=== PATIENT | female | born 1985 | race Caucasian/White ===

== ENCOUNTER 2018-12-05 19:11 | Emergency (ER) | payer MEDICARE, MEDICAID, SELFPAY ==
[2018-12-05 19:19] VITALS: BP 157/113; PULSE 110; RESP 16; TEMP 37; O2SAT 98
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
[2018-12-05] MEDS: Normal Saline 1,000 ML 1000 ML IV (20:50)
[2018-12-05] MEDS: diphenhydrAMINE 50 MG/ML VIAL IVP (20:51)
[2018-12-05] MEDS: Ketorolac 30 MG/ML VIAL IVP (20:52)
[2018-12-05] MEDS: Prochlorperazine 10 MG/2 ML VIAL IVP (20:52)
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
[2018-12-05 21:08] LABS: Abs Immature Grans 0.02 k/cumm (0.0-0.09); Absolute Basophil Count 0.03 k/cumm (0.0-0.2); Absolute Eosinophil Count 0.36 k/cumm (0.0-0.7); Absolute Lymphocyte Count 3.33 k/cumm (1.2-3.4); Absolute Monocyte Count 0.44 k/cumm (0.11-0.7); Absolute Neutrophil Count 4.11 k/cumm (1.2-6.7); Basophils % 0.4; Eosinophils % 4.3; HCT 44.9 % (36.0-46.0); HGB 15.1 g/dL (12.0-15.5); Immature Grans % 0.2; Lymphocytes % 40.2; Mean Corp. HGB Concentration 33.6 g/dL (32.0-36.0); Mean Corpuscular Hemoglobin 30.8 pg (27.0-33.0); Mean Corpuscular Volume 91.6 fL (80-95); Mean Platelet Volume 8.9 fL (8.0-11.0); Monocytes % 5.3; Neutrophils % 49.6; Platelet Count 366 x1000/uL (130-400); RBC Distribution Width 13.3 % (11.7-14.6); White Blood Cell Count 8.29 k/cumm (4.4-10.8)
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
--- NOTE | 2018-12-05 22:06 | NUR.NOTE ---
Nursing Note: faxed and noted referal to neurology 12/05/18
== END 2018-12-05 22:15 | disposition home or self-care (01) ==
PROVIDERS: Emergency Provider Nurse Practitioner Family; PCP Nurse Practitioner Family
DX: F07.81 Postconcussional syndrome (principal)
CPT/HCPCS: 80053; 96361; 96374; 96375; 99284; 70450; 83735; 85025; J0780; J1200; J1885

== ENCOUNTER → 2018-12-16 08:53 | Outpatient (BNVA) | payer MEDICARE, MEDICAID, SELFPAY | PROVIDERS: PCP Nurse Practitioner Family; Referring Provider Nurse Practitioner Family; Visit Provider Nurse Practitioner Adult Health | DX: S06.0X9A Concussion with loss of consciousness of unspecified duration, initial encounter (principal); S01.91XA Laceration without foreign body of unspecified part of head, initial encounter | CPT/HCPCS: 99204 ==

== ENCOUNTER 2019-05-07 16:39 | Outpatient (REF) | payer MEDICARE, MEDICAID, SELFPAY | END 2019-05-07 16:59 | LOC: NCHCN 16:39 | PROVIDERS: PCP Nurse Practitioner Family; Visit Provider Nurse Practitioner Family | DX: R30.0 Dysuria (principal); R73.03 Prediabetes | CPT/HCPCS: 87086 ==

== ENCOUNTER 2020-01-29 19:25 | Outpatient (REF) | payer MEDICARE, MEDICAID, SELFPAY ==
[2020-02-01 17:52] LABS: COVID-19 RT-PCR UVMMC Result Negative (Negative)
== END 2020-01-29 19:45 ==
LOC: NCHCN 19:25
PROVIDERS: PCP Nurse Practitioner Family; Visit Provider Nurse Practitioner Family
DX: Z20.828 Contact with and (suspected) exposure to other viral communicable diseases (principal)
CPT/HCPCS: U0003

== ENCOUNTER 2020-07-29 09:18 | Emergency (ER) | payer MEDICARE, MEDICAID, SELFPAY ==
[2020-07-29] VITALS (25 sets, daily range): BP systolic 90–135; BP diastolic 46–88; PULSE 74–120; RESP 1–25; TEMP 36.5; O2SAT 93–100
--- NOTE | 2020-07-29 09:15 | RT.EKG_ITS ---
APPROVED REPORT Exam: Resting ECG Reason for Exam: chest pains Patient Location: E HR:111 bpm ECG Measurements Heart Rate 111 AXIS AL 98 P 50 QRSd 74 QRS 61 QT 337 T 18 QTc 459 Conclusion Sinus tachycardia...rate> 99
--- NOTE | 2020-07-29 09:48 | W.ED.GENAD ---
Discharge Plan Disposition Patient Disposition: HOME Condition: Stable Discharge Details Clinical Impression: COPD (chronic obstructive pulmonary disease) Primary Care Provider: Maggie Stevens ED Provider: Rosi Smith Home Meds and New Rx's Prescriptions: New ipratropium-albuterol 0.5 mg-3 mg(2.5 mg base)/3 mL solution for nebulization 3 ml inhalation QID PRNQty: 90 RF: 0 prednisone 20 mg tablet 20 mg PO DAILY Qty: 10 RF: 0 doxycycline monohydrate 100 mg capsule 100 mg PO BID Qty: 14 RF: 0 (DME) nebulizer and compressor Device See Rx Instructions .ROUTE .MEDSUPPLY Qty: 1 RF: 0 No Action albuterol sulfate 2.5 mg /3 mL (0.083 %) Solution For Nebulization 2.5 mg INHALATION Q4H PRNRF: 0 fluticasone propionate 50 mcg/actuation [place],Suspension 1 spray INTRANASAL DAILY RF: 0 loratadine 10 mg Tablet 10 mg PO DAILY RF: 0 Nexplanon 68 mg Implant 1 implant SUBDERMAL ONCE RF: 0 buprenorphine-naloxone [Suboxone] 8-2 mg Film See Rx Instructions .ROUTE .COMPLEX RF: 0 Combivent Respimat 20-100 mcg/actuation Mist 1 puff INHALATION QID RF: 0 atorvastatin 40 mg Tablet 40 mg DAILY RF: 0 valproic acid 250 mg Capsule 500 mg PO BID RF: 0 albuterol sulfate [Ventolin HFA] 90 mcg/actuation Hfa Aerosol Inhaler 2 puff INHALATION Q6H PRN PRNRF: 0 dexmethylphenidate [Focalin XR] 40 mg Capsule,Er Biphasic 50-50 40 mg PO DAILY RF: 0 prochlorperazine maleate [Compazine] 10 mg tablet 10 mg PO Q6H PRN (Reason: nausea and vomiting) Qty: 14 RF: 0 diphenhydramine HCl [Benadryl Allergy] 25 mg tablet 50 mg PO Q6H PRN (Reason: nausea and vomiting) Qty: 20 RF: 0 Discharge Instructions Instructions: COPD (Chronic Obstructive Pulmonary Disease) (ED) Additional Instructions: recheck with pcp in 24-48 hours antibiotic until completed nebulizer every 4 hours return earlier with new or worsening complaints, including chest pain, worsening shortness of breath Discharge Data Discharge Date/Time-TO BE ENTERED AT DEPARTURE: 07/29/20 13:16 Medical Decision Making <EDILBERTO Padilla - Last Filed: 07/29/20 14:22> D-dimer negative, troponin negative with over 24 hours of symptoms, heart score of 3, Patient is feeling marked improvement after 2 DuoNeb treatments and IV steroids, she is sent home on prednisone and doxycycline for history of COPD She is instructed to be reevaluated in 24 to 48 hours with her primary care physician and given low threshold to return should she have new or worsening complaints Her chest pain is quite reproducible on exam and completely alleviated with Tylenol administration, her Covid swab is negative She is ambulatory with normal pulse oximetry, not he is satting below 93%, feeling marked symptomatic improvement and safe for discharge home at this time chest x-ray does not show acute pathology per radiology interpretation in my review Differential Diagnosis Differential Diagnosis: Pulmonary embolism, angina, COPD, pneumonia Medical Records Medical records reviewed: Yes I reviewed the patient's medical records. Lab Data Lab results reviewed: Yes I reviewed the patient's lab results. ECG Data Prior ECG tracings: available for review <Demarcus Nazario MD - Last Filed: 08/06/20 03:35> Patient seen, examined, and discussed with EDILBERTO Smith. EKG reviewed and interpreted by me: Please see report, nondiagnostic. Given respiratory symptoms and tachycardia on arrival, consider pulmonary embolism. Patient low risk by Wells criteria. Plan for ddimer. Nursing had difficulty obtaining blood from IV. I used ultrasound guidance to perform peripheral venous blood draw from left arm without complication. I agree with treatment plan as discussed/documented. HPI <EDILBERTO Padilla - Last Filed: 07/29/20 14:22> General Mode of arrival: ambulatory. Date/Time Provider Initiated Documentation: 07/29/20 09:33. Limitations to Documentation: no limitations. Information obtained by: patient. HPI Narrative: This 35-year-old female with history of hepatitis C, hypercholesterolemia IV drug abuse (10+ years earlier) presents with report of chest pressure and yesterday morning when she awoke. She denies prior history of similar symptoms in the past. She states she has had some intermittent nausea without diaphoresis. She denies any vomiting. She states she feels breath. She denies any new medications. She is been using her inhalers as instructed. She denies any calf pain or swelling. She does take Nexplanon for contraception. She denies any calf pain or swelling. She denies history of coagulopathy. She denies any fever or chills. She denies any exertional symptoms. Related Data Home Medications Medication Instructions Recorded Confirmed albuterol sulfate [Ventolin HFA] 2 puff INHALATION Q6H PRN PRN 12/05/18 07/29/20 atorvastatin 40 mg DAILY 12/05/18 07/29/20 dexmethylphenidate [Focalin XR] 40 mg PO DAILY 12/05/18 07/29/20 diphenhydramine HCl [Benadryl 50 mg PO Q6H PRN #20 tab 12/05/18 07/29/20 Allergy] prochlorperazine maleate 10 mg PO Q6H PRN #14 tab 12/05/18 07/29/20 [Compazine] valproic acid 500 mg PO BID 12/05/18 07/29/20 albuterol sulfate 2.5 mg INHALATION Q4H PRN 08/03/19 07/29/20 buprenorphine-naloxone [Suboxone] See Rx Instructions .ROUTE .COMPLEX 08/03/19 07/29/20 etonogestrel [Nexplanon] 1 implant SUBDERMAL ONCE 08/03/19 07/29/20 fluticasone propionate 1 spray INTRANASAL DAILY 08/03/19 07/29/20 ipratropium-albuterol [Combivent 1 puff INHALATION QID 08/03/19 07/29/20 Respimat] loratadine 10 mg PO DAILY 08/03/19 07/29/20 doxycycline monohydrate 100 mg PO BID #14 cap 07/29/20 ipratropium-albuterol 3 ml INHALATION QID PRN #90 ml 07/29/20 nebulizer and compressor #1 ea 07/29/20 prednisone 20 mg PO DAILY #10 tab 07/29/20 Previous Rx's Medication Instructions Recorded diphenhydramine HCl [Benadryl 50 mg PO Q6H PRN #20 tab 12/05/18 Allergy] prochlorperazine maleate 10 mg PO Q6H PRN #14 tab 12/05/18 [Compazine] doxycycline monohydrate 100 mg PO BID #14 cap 07/29/20 ipratropium-albuterol 3 ml INHALATION QID PRN #90 ml 07/29/20 nebulizer and compressor #1 ea 07/29/20 prednisone 20 mg PO DAILY #10 tab 07/29/20 Allergies Allergy/AdvReac Type Severity Reaction Status Date / Time lamotrigine [From Lamictal] Allergy Severe Unverified 07/29/20 09:33 adhesives Allergy Mild Uncoded 07/29/20 09:33 General Stated Complaint: Chest Pain PAYTON: 2 Review of Systems <EDILBERTO Padilla - Last Filed: 07/29/20 14:22> Narrative: Review of systems obtained x7 aside from where indicated in HPI PFSH <EDILBERTO Padilla - Last Filed: 07/29/20 14:22> Medical History (Updated 07/29/20 @ 12:42 by EDILBERTO Padilla) ADD (attention deficit disorder) ADHD Aneurysmal bone cyst Back pain Bipolar 1 disorder Bipolar 2 disorder Cervical dysplasia Chronic pain Chronic pain of left lower extremity COPD (chronic obstructive pulmonary disease) Depression with anxiety Dyspepsia Dysuria Eczema Glaucoma H/O traumatic brain injury Headache Hepatitis C History of narcotic addiction Hx of opioid abuse Hyperkalemia Hyperlipidemia Insomnia Lower extremity surgery planned Marijuana use Nocturnal leg cramps Obesity Peripheral neuropathy Prediabetes PTSD (post-traumatic stress disorder) Seizure after head injury Sinusitis Smoker Suppurative hidradenitis Surgical History (Updated 08/24/19 @ 09:22 by Joan Okeefe RN) H/O removal of cyst S/P right knee arthroscopy Tubal was removed. Family History (Updated 07/29/20 @ 12:38 by EDILBERTO Padilla) Other COPD (chronic obstructive pulmonary disease) Social History (Updated 08/24/19 @ 09:23 by Joan Okeefe RN) Smoking/Tobacco Use Status: Current every day Tobacco Type: cigarettes Smoking risk assessment performed?: Yes Alcohol Intake: never Drug use: Occasionally Substance use type: former substance user and marijuana Household members: family Housing: homeless Number of Children: 3 current occupation: disabled What is your relationship status?: Panel score (0-1 are the most socially isolated patients): 0 What type of physical activity do you participate in: none Seatbelt use: sometimes Do you feel safe at home: Yes Do you feel safe in your relationship?: Yes Exam <EDILBERTO Padilla - Last Filed: 07/29/20 14:22> Const General: cooperative and no acute distress Chest Chest: normal inspection of the chest Resp Effort & Inspection: normal respiratory effort Auscultation: diminished lung sounds and wheezes Cardio Rate: tachycardic Rhythm: regular rhythm Skin General skin exam: no rashes or lesions noted Neuro General: patient alert and patient oriented x3 Extrem Other: No calf swelling or tenderness appreciated bilaterally. Course <EDILBERTO Padilla - Last Filed: 07/29/20 14:22> Vital Signs Vital signs: Vital Signs Temperature 36.5 C 07/29/20 09:24 Pulse 93 H 07/29/20 09:24 Respiratory Rate 15 07/29/20 09:24 Blood Pressure 118/86 07/29/20 09:24 Pulse Oximetry 99 07/29/20 09:24 Temperature 36.5 C 07/29/20 09:24 Temperature Source Skin 07/29/20 09:24 Pulse 91 H 07/29/20 09:30 Pulse 105 H 07/29/20 09:31 Respiratory Rate 18 07/29/20 09:31 Respiratory Effort Non-Labored 07/29/20 09:31 Respiratory Depth Normal 07/29/20 09:31 Respiratory Pattern Normal 07/29/20 09:31 Blood Pressure 118/86 07/29/20 09:30 Blood Pressure Mean 90 07/29/20 09:30 Blood Pressure Position Supine 07/29/20 09:24 Pulse Oximetry 99 07/29/20 09:31 Oxygen Delivery Method Room Air 07/29/20 09:24 Oxygen Flow Rate 0 07/29/20 09:24 Pain Level 7 07/29/20 09:31
[2020-07-29 09:51] LABS: Source Nasal/Nares
[2020-07-29] MEDS: methylPREDNISolone SUCC 125 MG VIAL IVP (10:28)
[2020-07-29] MEDS: ACETAMINOPHEN 1,000 MG/100 ML BTL 400 MG IVPB (10:28)
[2020-07-29] MEDS: Albuterol/Ipratropium 3 ML UPD VIAL UPD ×2 (10:28→11:44)
[2020-07-29 10:44] LABS: COVID-19 PCR Negative (Negative)
[2020-07-29 11:05] LABS: Abs Immature Grans 0.03 10^3/uL (0.0-0.06); Absolute Basophil Count 0.03 10^3/uL (0.0-0.2); Absolute Eosinophil Count 0.16 10^3/uL (0.0-0.7); Absolute Lymphocyte Count 3.83 10^3/uL (1.2-3.4); Absolute Monocyte Count 0.74 10^3/uL (0.1-0.8); Absolute Neutrophil Count 4.72 10^3/uL (1.2-6.7); Basophils % 0.3; Eosinophils % 1.7; HCT 43.6 % (36.0-46.0); HGB 14.6 g/dL (11.2-15.7); Immature Grans % 0.3; Lymphocytes % 40.3; MCHC 33.5 % (32.0-36.0); MCV 89.7 fL (80-95); MPV 9.2 fL (8.0-11.0); Monocytes % 7.8; Neutrophils % 49.6; Nucleated RBC 0 %; Platelet Count 418 10^3/uL (130-400); RBC 4.86 10^6/uL (3.93-5.22); RDW 12.3 % (11.7-14.6); RDW-SD 40.9 fL; WBC 9.51 10^3/uL (4.4-10.8)
[2020-07-29 11:20] LABS: HCG Qual (Serum) Negative
[2020-07-29 11:21] LABS: ALT 15 U/L (14-59); AST 9 U/L (15-37); Albumin 3.5 g/dL (3.4-5.0); Alkaline Phosphatase 92 U/L (46-116); Anion Gap 9.1 mmol/L (3-11); BUN 7 mg/dL (7-18); Bilirubin, Total 0.4 mg/dL (0.2-1.0); CO2 26.9 mmol/L (21.0-32.0); CREATININE 0.8 mg/dL (0.55-1.02); Calcium 9.1 mg/dL (8.5-10.1); Chloride 102 mmol/L (98-107); Glucose 97 mg/dL (74-106); Magnesium 2.1 mg/dL (1.8-2.4); Potassium 4.3 mmol/L (3.5-5.1); Sodium 138 mmol/L (136-145); Total Protein 7.6 g/dL (6.4-8.2); Troponin I < 0.05 ng/mL (<0.06)
--- NOTE | 2020-07-29 11:45 | DI.RAD_ITS ---
Exam(s) XR CHEST 2V PA LATERAL EXAM: XR CHEST 2V PA LATERAL CLINICAL HISTORY: shortness of breath TECHNIQUE: 2D digital imaging was performed. COMPARISON: No exams were available for comparison FINDINGS: MEDIASTINUM: Normal. HEART: Normal. PULMONARY VASCULATURE: Normal. LUNGS: Clear. PLEURAL SPACE: No pleural effusion or pneumothorax. BONE:Within normal limits for the patient's age. OTHER FINDINGS:Normal. IMPRESSION: No acute pulmonary findings. DATA REPOSITORY: RADIATION DOSE DELIVERED:
[2020-07-29 11:47] LABS: D-Dimer 264 ng/mlFEU (<500)
[2020-07-29 12:34] LABS: NT-proBNP 68 pg/mL (<300)
== END 2020-07-29 13:16 | disposition home or self-care (01) ==
PROVIDERS: Emergency Provider Physician Assistant; PCP Nurse Practitioner Family
DX: J44.9 Chronic obstructive pulmonary disease, unspecified (principal); F17.210 Nicotine dependence, cigarettes, uncomplicated
CPT/HCPCS: 36415; 80053; 87635; 93005; 94640; 96365; 96375; 99284; 71046; 83735; 83880; 84484; 84703; 85025; 85379; 93010; 99283; J0131; J2930; J7620

== ENCOUNTER 2020-09-10 15:11 | Outpatient (REF) | payer MEDICARE, MEDICAID, SELFPAY ==
[2020-09-28 11:45] LABS: Fungus Smear No Fungi Seen
== END 2020-09-10 15:12 | disposition home or self-care (01) ==
LOC: LBN 15:11
PROVIDERS: PCP Nurse Practitioner Family; Visit Provider Physician Assistant Medical
DX: L98.8 Other specified disorders of the skin and subcutaneous tissue (principal)
CPT/HCPCS: 87101; 87206; 87070; 87205

== ENCOUNTER 2020-11-04 07:41 | Outpatient (RCR) | payer MEDICARE, MEDICAID, SELFPAY ==
--- NOTE | 2020-11-04 10:15 | HOLTER_ITS ---
APPROVED REPORT Conclusion This is a 48-hour Holter monitor ordered for tachycardia Rhythm throughout was sinus. Average heart rate was 98. Minimum was 72, maximum 163. Heart rates d uring sleep were approximately 80. Heart rates while awake average 110-120 There were 2 isolated PVCs There were very rare atrial premature beats There was no atrial fibrillation. There was no high-grade AV block. There were no pauses greater th an 3 seconds.
== END 2020-11-10 23:59 | disposition home or self-care (01) ==
LOC: RT 07:41
PROVIDERS: PCP Nurse Practitioner Family; Visit Provider Nurse Practitioner Family
DX: R00.0 Tachycardia, unspecified (principal); I49.3 Ventricular premature depolarization
CPT/HCPCS: 93227; 93225; 93226

== ENCOUNTER 2020-11-07 03:30 | Outpatient (CLI) | payer MEDICARE, MEDICAID, SELFPAY ==
[2020-11-07 11:49] LABS: Abs Immature Grans 0.05 10^3/uL (0.0-0.06); Absolute Basophil Count 0.04 10^3/uL (0.0-0.2); Absolute Eosinophil Count 0.18 10^3/uL (0.0-0.7); Absolute Lymphocyte Count 3.43 10^3/uL (1.2-3.4); Absolute Monocyte Count 0.61 10^3/uL (0.1-0.8); Absolute Neutrophil Count 5.68 10^3/uL (1.2-6.7); Basophils % 0.4; Eosinophils % 1.8; HGB 13.3 g/dL (11.2-15.7); Immature Grans % 0.5; Lymphocytes % 34.3; MCH 29.4 pg (27.0-33.0); MCHC 32.4 % (32.0-36.0); MCV 90.7 fL (80-95); MPV 9.3 fL (8.0-11.0); Monocytes % 6.1; Neutrophils % 56.9; Nucleated RBC 0 %; Platelet Count 338 10^3/uL (130-400); RBC 4.52 10^6/uL (3.93-5.22); RDW 13.3 % (11.7-14.6); RDW-SD 44.2 fL; WBC 9.99 10^3/uL (4.4-10.8)
[2020-11-07 11:56] LABS: GGT 24 U/L (5-55)
[2020-11-07 12:01] LABS: VALPROIC ACID 55.3 ug/mL
[2020-11-07 12:09] LABS: ALT 18 U/L (14-59); AST 10 U/L (15-37); Albumin 3.4 g/dL (3.4-5.0); Alkaline Phosphatase 101 U/L (46-116); Anion Gap 6.1 mmol/L (3-11); BUN 9 mg/dL (7-18); Bilirubin, Total 0.3 mg/dL (0.2-1.0); CO2 27.9 mmol/L (21.0-32.0); CREATININE 0.8 mg/dL (0.55-1.02); Calcium 8.4 mg/dL (8.5-10.1); Chloride 104 mmol/L (98-107); Glucose 93 mg/dL (74-106); Sodium 138 mmol/L (136-145); TSH (W/Ref FT4) 1.46 uIU/mL (0.36-3.74); Total Protein 7.1 g/dL (6.4-8.2)
== END 2020-11-07 03:31 | disposition home or self-care (01) ==
LOC: LBO 03:30
PROVIDERS: PCP Nurse Practitioner Family; Visit Provider Nurse Practitioner Psychiatric/Mental Health
DX: R73.03 Prediabetes (principal); F11.20 Opioid dependence, uncomplicated; R53.83 Other fatigue; B19.20 Unspecified viral hepatitis C without hepatic coma; G47.62 Sleep related leg cramps; Z51.81 Encounter for therapeutic drug level monitoring; F51.05 Insomnia due to other mental disorder; F31.81 Bipolar II disorder
CPT/HCPCS: 36415; 80053; 93227; 80164; 82977; 84443; 85025; 93226

== ENCOUNTER 2020-12-09 08:45 | Outpatient (CLI) | payer MEDICARE, MEDICAID, SELFPAY | END 2020-12-09 08:46 | disposition home or self-care (01) | LOC: DI.CARD 08:46 | PROVIDERS: PCP Nurse Practitioner Family; Visit Provider Internal Medicine Cardiovascular Disease | DX: R00.0 Tachycardia, unspecified (principal) | CPT/HCPCS: 93010 ==

== ENCOUNTER 2021-11-06 15:28 | Outpatient (REF) | payer MEDICARE, MEDICAID, SELFPAY ==
[2021-11-06 18:06] LABS: Abs Immature Grans 0.09 10^3/uL (0.0-0.06); Absolute Basophil Count 0.06 10^3/uL (0.0-0.2); Absolute Eosinophil Count 0.17 10^3/uL (0.0-0.7); Absolute Lymphocyte Count 2.71 10^3/uL (1.2-3.4); Absolute Monocyte Count 0.68 10^3/uL (0.1-0.8); Basophils % 0.5; Eosinophils % 1.5; HCT 39.1 % (36.0-46.0); HGB 12.5 g/dL (11.2-15.7); Immature Grans % 0.8; Lymphocytes % 24.3; MCV 91 fL (80-95); MPV 9.1 fL (8.0-11.0); Monocytes % 6.1; Neutrophils % 66.8; Platelet Count 621 10^3/uL (130-400); RBC 4.31 10^6/uL (3.93-5.22); RDW 13.8 % (11.7-14.6); RDW-SD 46.8 fL; WBC 11.15 10^3/uL (4.4-10.8)
[2021-11-06 18:16] LABS: Absolute Neutrophil Count 7.45 10^3/uL (1.2-6.7)
== END 2021-11-06 15:29 | disposition home or self-care (01) ==
LOC: LBN 15:28
PROVIDERS: PCP Nurse Practitioner Family; Visit Provider Student in an Organized Health Care Education/Training Program
DX: M00.871 Arthritis due to other bacteria, right ankle and foot (principal); Z79.2 Long term (current) use of antibiotics; Z45.2 Encounter for adjustment and management of vascular access device
CPT/HCPCS: 85025; 86140

== ENCOUNTER 2021-11-13 20:28 | Outpatient (REF) | payer MEDICARE, MEDICAID, SELFPAY ==
[2021-11-13 20:18] LABS: Abs Immature Grans 0.01 10^3/uL (0.0-0.06); Absolute Basophil Count 0.05 10^3/uL (0.0-0.2); Absolute Eosinophil Count 0.13 10^3/uL (0.0-0.7); Absolute Lymphocyte Count 2.46 10^3/uL (1.2-3.4); Basophils % 0.6; Eosinophils % 1.5; HCT 34.7 % (36.0-46.0); HGB 10.6 g/dL (11.2-15.7); Immature Grans % 0.1; Lymphocytes % 28.8; MCH 28.5 pg (27.0-33.0); MCHC 30.5 % (32.0-36.0); MCV 93 fL (80-95); MPV 9.6 fL (8.0-11.0); Monocytes % 8.2; Neutrophils % 60.8; Platelet Count 498 10^3/uL (130-400); RBC 3.72 10^6/uL (3.93-5.22); RDW 13.6 % (11.7-14.6); RDW-SD 46.8 fL; WBC 8.55 10^3/uL (4.4-10.8)
[2021-11-13 20:24] LABS: C-Reactive Protein 9.18 mg/dL (0.0-0.3)
== END 2021-11-13 20:29 | disposition home or self-care (01) ==
LOC: NCHCN 20:28
PROVIDERS: PCP Nurse Practitioner Family; Visit Provider Student in an Organized Health Care Education/Training Program
DX: M00.871 Arthritis due to other bacteria, right ankle and foot (principal)
CPT/HCPCS: 85025; 86140

== ENCOUNTER 2023-02-26 15:35 | Outpatient (REF) | payer MEDICARE, MEDICAID, SELFPAY ==
--- NOTE | 2023-02-26 14:15 | PAPFT_PTH ---
PATIENT: Inna Doherty LOC: [facility] U#:[id number] AGE/SX: 37/F ROOM: RE02/26/[address]: Anita Awad : 1985 BED: DIS: 02/26/2023 SPEC #: [id number] RECD: 02/27/23 12:57 STATUS: BRIDGET LLOYD #: [id number] MERA: 02/26/23 14:[address]: Anita Awad DEPT: [facility] Cytology RECD BY: Rosi Nicholson ENTERED: 02/27/23 12:57 SP TYPE: PAPFT ZACHARY DR: Maggie Stevens Tissues: 1 - CX/ENDOCX FOR PAP SMEARS Procedures: PAP THIN PREP/UVM Screening HPV DNA PROBE Comments: [id number]
== END 2023-02-26 15:36 | disposition home or self-care (01) ==
LOC: NCHCN 15:35
PROVIDERS: PCP Nurse Practitioner Family; Visit Provider Nurse Practitioner Family
DX: Z11.51 Encounter for screening for human papillomavirus (HPV); Z01.411 Encounter for gynecological examination (general) (routine) with abnormal findings
CPT/HCPCS: 88142; 87624

== ENCOUNTER → 2023-03-04 02:10 | Outpatient (CLI) | payer MEDICARE, MEDICAID, SELFPAY ==
--- NOTE | 2023-03-04 | DI.US_ITS ---
Exam(s) US ABDOMEN LIMITED EXAM: US ABDOMEN LIMITED CLINICAL HISTORY: VIRAL HEP C,b19.20 TECHNIQUE: Ultrasound abdomen performed using standard protocol. COMPARISON: No exams were available for comparison FINDINGS: PANCREAS: Normal where visualized. LIVER: Normal. Hepatopetal flow in the Portal Vein. The liver measures in 17.6 cm length. GALLBLADDER: No evidence of cholelithiasis. No evidence of wall thickening. No pericholecystic fluid identified. BILIARY SYSTEM: Common bile duct measures < 7 mm. No intrahepatic biliary ductal dilation. LOPEZ'S SIGN: Negative. RIGHT KIDNEY: Kidney is normal in size. No evidence of renal calculi. No evidence of hydronephrosis. No renal mass or cyst identified. ASCITES: None seen. IMPRESSION: Normal sonographic appearance of the upper abdomen. DATA REPOSITORY:
== END ==
PROVIDERS: PCP Nurse Practitioner Family; Visit Provider Nurse Practitioner Family
DX: B19.20 Unspecified viral hepatitis C without hepatic coma (principal)
CPT/HCPCS: 76705

== ENCOUNTER 2023-10-31 21:29 | Outpatient (REF) | payer MEDICARE, MEDICAID, SELFPAY ==
[2023-10-31 22:07] LABS: HCT 45.1 % (36.0-46.0); HGB 15.1 g/dL (11.2-15.7); MCH 30.8 pg (27.0-33.0); MCHC 33.5 % (32.0-36.0); MCV 92 fL (80-95); MPV 9.5 fL (8.0-11.0); Platelet Count 460 10^3/uL (130-400); RBC 4.91 10^6/uL (3.93-5.22); RDW 12.8 % (11.7-14.6); RDW-SD 43.1 fL
[2023-10-31 23:09] LABS: ALT 20 U/L (14-59); AST 14 U/L (15-37); Albumin 3.6 g/dL (3.4-5.0); Alkaline Phosphatase 85 U/L (46-116); Anion Gap 10.6 mmol/L (3-11); BUN 20 mg/dL (7-18); Bilirubin, Total 0.14 mg/dL (0.2-1.0); CO2 24.4 mmol/L (21.0-32.0); CREATININE 0.8 mg/dL (0.55-1.02); Calcium 9.1 mg/dL (8.5-10.1); Chloride 105 mmol/L (98-107); Estimated GFR 97.26 (mL/min/1.73m2); Glucose 77 mg/dL (74-106); Potassium 3.9 mmol/L (3.5-5.1); Sodium 140 mmol/L (136-145); TSH (W/Ref FT4) 3.35 uIU/mL (0.36-3.74); Total Protein 7.4 g/dL (6.4-8.2)
[2023-10-31 23:20] LABS: Calculated LDL 306 mg/dL (<100); Cholesterol 397 mg/dL (<200); HDL Cholesterol 40 mg/dL (40-60); Triglyceride 255 mg/dL (<150)
== END 2023-10-31 21:30 | disposition home or self-care (01) ==
LOC: NCHCN 21:29
PROVIDERS: PCP Nurse Practitioner Family; Visit Provider Family Medicine
DX: Z86.19 Personal history of other infectious and parasitic diseases (principal); R53.83 Other fatigue
CPT/HCPCS: 80053; 80061; 85027; 84443

== ENCOUNTER 2024-06-05 19:29 | Inpatient (IN) | payer MEDICARE, MEDICAID, SELFPAY ==
[2024-06-05] VITALS (58 sets, daily range): BP systolic 113; BP diastolic 54; PULSE 95–127; RESP 15–37; TEMP 38.3; O2SAT 89–100
--- NOTE | 2024-06-05 19:45 | RT.EKG_ITS ---
APPROVED REPORT Exam: Resting ECG Reason for Exam: tachycardia Patient Location: E HR:121 bpm ECG Measurements Heart Rate 121 AXIS [place] 126 P 53 QRSd 83 QRS 74 QT 313 T -20 QTc 444 Conclusion Sinus tachycardia...rate> 99 Sinus tachycardia. When compared to prior 07/29/20 HR has increased. WD
[2024-06-05 20:30] LABS: Absolute Basophil Count 0.03 10^3/uL (0.0-0.2); Absolute Lymphocyte Count 1.33 10^3/uL (1.2-3.4); Absolute Monocyte Count 0.74 10^3/uL (0.1-0.8); Absolute Neutrophil Count 12.23 10^3/uL (1.2-6.7); BE (Venous) 7 mmol/L (-2-3); Basophils % 0.2 %; HCO3 (Venous) 31 mmol/L (23-28); HCT 36.9 % (36.0-46.0); HGB 12.1 g/dL (11.2-15.7); Immature Grans % 0.7 %; Lactate 0.9 mmol/L (<or=2.0); Lymphocytes % 9.2 %; MCHC 32.8 % (32.0-36.0); MCV 95 fL (80-95); MPV 8.8 fL (8.0-11.0); Monocytes % 5.1 %; Neutrophils % 84.8 %; O2 Sat (Venous) 79 %; Platelet Count 299 10^3/uL (130-400); RDW 14.3 % (11.7-14.6); RDW-SD 49.5 fL; TCO2 (Venous) 28 mmol/L (24-29); WBC 14.42 10^3/uL (4.4-10.8); pCO2 (Venous) 44 mmHg (41-51); pH (Venous) 7.46 (7.31-7.41); pO2 (Venous) 39 mmHg
--- NOTE | 2024-06-05 20:30 | DI.CT_ITS ---
Exam(s) CT RENAL COLIC WO EXAM: CT RENAL COLIC WO CLINICAL HISTORY: L flank pain. TECHNIQUE: Imaging Protocol: Axial computed tomography images with coronal and sagittal reformatted images were created and reviewed. COMPARISON: CR XR CHEST 2V PA LATERAL from 07/29/2020 US US ABDOMEN LIMITED from 03/04/2023 FINDINGS: ABDOMEN: Lung Bases: Normal where visualized. Liver: There is diffuse decreased attenuation of the liver consistent with fatty infiltration. No me asurable mass. Gallbladder and biliary tract: No radiodense calculus or biliary ductal dilation. Pancreas: Normal density, no abnormal calcifications or inflammatory process. Spleen: Normal. Kidneys: Normal size, contour and axis.No radiodense stones or obstructive uropathy. No masses seen. Adrenal glands: No mass is seen. Lymph nodes: Within normal limits. Abdominal Aorta: Abdominal portion non-dilated. Atherosclerotic calcification is present. PELVIS: Bladder:Symmetric distention, no gross wall thickening. Bowel: No obstruction or bowel wall thickening. There is no evidence of appendicitis. There is a mod erate amount of stool throughout the colon. Peritoneal cavity: No ascites, collection or mesenteric inflammatory response. No free air. Reproductive organs: Unremarkable as visualized. Bones: There is a compression fracture of L1 of indeterminate age. It was not present on the chest x -ray from 07/29/2020. There is loss of 20-30 percent of the height of the vertebral body anteriorly. There is retropulsion into the spinal canal and exaggeration of the kyphosis at this level. There i s mild narrowing of the central spinal canal. Soft Tissues: There is a small fat containing umbilical hernia. IMPRESSION: 1. No evidence of nephrolithiasis or hydronephrosis. 2. L1 compression fracture deformity with loss of 20-30 percent of the height of the vertebral body a nteriorly. There is retropulsion into the posterior spinal canal resulting in very mild narrowing of the central spinal canal. This is age indeterminate. It appears subacute or chronic. The most rec ent evaluation of this area was on 07/29/2020 which was unremarkable. MRI may be useful for further c haracterization. 3. The preliminary [facility] report was reviewed. RADIATION DOSE DELIVERED: 1,142.84mGy.cm Total DLP DATA REPOSITORY: All CT scans at this facility are submitted to the National Radiology Data Registry (NRDR) Dose Index Registry (DIR) with the [employer] ([employer]). RADIATION OPTIMIZATION: All CT scans at this facility use at least one of these dose optimization te chniques: automated exposure control; mA and/or kV adjustment per patient size (includes targeted exa ms where dose is matched to clinical indication); or iterative reconstruction.
--- NOTE | 2024-06-05 20:42 | ED.GENADUL_ITS ---
Discharge Plan Disposition Patient Disposition: Admit to [facility] Condition: Stable Discharge Details Clinical Impression: Sepsis, Cellulitis of right arm Primary Care Provider: Anita Awad ED Provider: Wily Calderon Home Meds and New Rx's Prescriptions: No Action fluticasone propionate 50 mcg/actuation [place],Suspension 1 spray INTRANASAL DAILY loratadine 10 mg Tablet 10 mg PO DAILY buprenorphine-naloxone [Suboxone] 8-2 mg Film See Rx Instructions .ROUTE .COMPLEX Rx Instructions: 20 mg duloxetine [Cymbalta] 20 mg capsule,delayed release(DR/EC) 20 mg PO BID Nexplanon 68 mg implant 1 implant subdermal ONCE Rx Instructions: as a single dose sumatriptan succinate 100 mg tablet 100 mg PO DAILY docusate sodium 100 mg tablet 100 mg PO DAILY buprenorphine-naloxone [Suboxone] 12-3 mg film 1 film sublingual DAILY montelukast 10 mg tablet 10 mg PO DAILY methylphenidate HCl 10 mg tablet 10 mg PO DAILY baclofen 20 mg tablet 20 mg PO DAILY tiotropium bromide [Spiriva with HandiHaler] 18 mcg capsule, w/inhalation device 1 cap inhalation DAILY Rx Instructions: puncture 1 cap using device; one dose = 2 inhalations budesonide-formoterol 80-4.5 mcg/actuation HFA aerosol inhaler 2 puff inhalation BID PRN divalproex 500 mg tablet extended release 24 hr 500 mg PO DAILY Rx Instructions: take by mouth tid 500 mg QAm. 250mg midday, 500mg pm gabapentin 600 mg tablet 600 mg PO BID meloxicam 15 mg tablet 15 mg PO DAILY ondansetron 8 mg tablet,disintegrating 8 mg PO Q12H PRN topiramate 100 mg tablet 100 mg PO BID amlodipine 10 mg tablet 10 mg PO DAILY atorvastatin 40 mg Tablet 40 mg PO DAILY albuterol sulfate [Ventolin HFA] 90 mcg/actuation Hfa Aerosol Inhaler 2 puff INHALATION Q6H PRN PRN ipratropium-albuterol 0.5 mg-3 mg(2.5 mg base)/3 mL solution for nebulization 3 ml inhalation QID PRNQty: 90 0RF (DME) nebulizer and compressor Device See Rx Instructions .ROUTE .MEDSUPPLY Qty: 1 0RF Rx Instructions: As directed multivitamin Tablet 1 tab PO DAILY trazodone 50 mg tablet 50 mg PO .Q 24 hrs tizanidine 4 mg tablet 4 mg PO DAILY trazodone 150 mg tablet 150 mg PO .bedtime Vraylar 3 mg capsule 3 mg PO DAILY mirtazapine 30 mg tablet 30 mg PO .bedtime prazosin 2 mg capsule 2 mg PO .bedtime nicotine (polacrilex) 4 mg gum 4 mg buccal Q1H gabapentin 300 mg capsule 300 mg PO TID Patient Comments: TAKE ONE CAPSULE BY MOUTH THREE TIMES A DAY One-A-Day Women's Complete 18 mg iron- 400 mcg tablet 1 tab PO DAILY levetiracetam 500 mg tablet 500 mg PO BID omeprazole 20 mg capsule,delayed release(DR/EC) 20 mg PO DAILY prazosin 1 mg capsule 1 mg PO .bedtime buprenorphine-naloxone 8-2 mg tablet, sublingual 2 tab SUBLINGUAL DAILY Patient Comments: PLACE ONE TABLET UNDER THE TONGUE EVERY DAY HPI General Date/Time Provider Initiated Documentation: 06/05/24 19:34 . HPI Narrative: 39 year-old female presents to ED today by POV/ambulating with a chief complaint of fevers, back pain, L flank pain, swelling to arms and legs, R arm redness with raisued umbilicated papules to forearm, cough with chronic COPD, having taken 6 diuretic pills yesterday with no urine since then, with onset the past few days. Patient has history of IVDU in remote past. Quality described as feels awful, no radiation to chest pain, abdominal pain, nausea/vomiting, neck stiffness/reduced ROM, severe headache, confusion, visual changes, motor deficits. Severity is described as severe. Palliating factors include nothing specific. Provoking factors include nothing specific. Events leading up to the incident/Associated Symptoms: Patient reports cutting her medial calf shaving a few days ago but the area is not overly red. Patient not anticoagulated. Related Data Home Medications ?Medication ?Instructions ?Recorded ?Confirmed albuterol sulfate 90 mcg/actuation 2 puff inhalation Q6H PRN PRN 12/05/18 06/05/24 aerosol inhaler (Ventolin HFA) atorvastatin 40 mg tablet 40 mg PO DAILY 12/05/18 06/05/24 buprenorphine 8 mg-naloxone 2 mg See Rx Instructions .Route .COMPLEX 08/03/19 06/05/24 sublingual film (Suboxone) fluticasone propionate 50 1 spray intranasal DAILY 08/03/19 06/05/24 mcg/actuation nasal spray,suspension loratadine 10 mg tablet 10 mg PO DAILY 08/03/19 06/05/24 ipratropium 0.5 mg-albuterol 3 mg 3 ml inhalation QID PRN #90 mL 07/29/20 06/05/24 (2.5 mg base)/3 mL nebulization soln nebulizer and compressor #1 ea 07/29/20 buprenorphine 12 mg-naloxone 3 mg 1 film sublingual DAILY 10/10/20 06/05/24 sublingual film (Suboxone) docusate sodium 100 mg tablet 100 mg PO DAILY 10/10/20 06/05/24 duloxetine 20 mg capsule,delayed 20 mg PO BID 10/10/20 06/05/24 release (Cymbalta) etonogestrel 68 mg subdermal 1 implant subdermal ONCE 10/10/20 06/05/24 implant (Nexplanon) sumatriptan succinate 100 mg tablet 100 mg PO DAILY 10/10/20 06/05/24 montelukast 10 mg tablet 10 mg PO DAILY 10/11/20 06/05/24 amlodipine 10 mg tablet 10 mg PO DAILY 04/18/23 06/05/24 baclofen 20 mg tablet 20 mg PO DAILY 04/18/23 06/05/24 budesonide-formoterol HFA 80 2 puff inhalation BID PRN 04/18/23 06/05/24 mcg-4.5 mcg/actuation aerosol inhaler divalproex 500 mg tablet,extended 500 mg PO DAILY 04/18/23 06/05/24 release 24 hr gabapentin 600 mg tablet 600 mg PO BID 04/18/23 06/05/24 meloxicam 15 mg tablet 15 mg PO DAILY 04/18/23 06/05/24 methylphenidate HCl 10 mg tablet 10 mg PO DAILY 04/18/23 06/05/24 ondansetron 8 mg disintegrating 8 mg PO Q12H PRN 04/18/23 06/05/24 tablet tiotropium bromide 18 mcg capsule 1 cap inhalation DAILY 04/18/23 06/05/24 with inhalation device (Spiriva with HandiHaler) topiramate 100 mg tablet 100 mg PO BID 04/18/23 06/05/24 buprenorphine 8 mg-naloxone 2 mg 2 tab sublingual DAILY 06/05/24 06/05/24 sublingual tablet cariprazine 3 mg capsule (Vraylar) 3 mg PO DAILY 06/05/24 06/05/24 gabapentin 300 mg capsule 300 mg PO TID 06/05/24 06/05/24 levetiracetam 500 mg tablet 500 mg PO BID 06/05/24 06/05/24 mirtazapine 30 mg tablet 30 mg PO .bedtime 06/05/24 06/05/24 multivitamin 1 tab PO DAILY 06/05/24 06/05/24 [id number] 1 tab PO DAILY 06/05/24 06/05/24 fumarate 18 mg-folic acid 400 mcg tablet (One-A-Day Women's Complete) nicotine (polacrilex) 4 mg gum 4 mg buccal Q1H 06/05/24 06/05/24 omeprazole 20 mg capsule,delayed 20 mg PO DAILY 06/05/24 06/05/24 release prazosin 1 mg capsule 1 mg PO .bedtime 06/05/24 06/05/24 prazosin 2 mg capsule 2 mg PO .bedtime 06/05/24 06/05/24 tizanidine 4 mg tablet 4 mg PO DAILY 06/05/24 06/05/24 trazodone 150 mg tablet 150 mg PO .bedtime 06/05/24 06/05/24 trazodone 50 mg tablet 50 mg PO .Q 24 hrs 06/05/24 06/05/24 Previous Rx's ?Medication ?Instructions ?Recorded ipratropium 0.5 mg-albuterol 3 mg 3 ml inhalation QID PRN #90 mL 07/29/20 (2.5 mg base)/3 mL nebulization soln nebulizer and compressor #1 ea 07/29/20 Allergies Allergy/AdvReac Type Severity Reaction Status Date / Time lamotrigine (From Lamictal) Allergy Severe Hives Unverified 06/05/24 19:48 erythromycin base Allergy Unknown Other (See Verified 06/05/24 19:48 Comment) transparent dressing Allergy Unknown Other (See Verified 06/05/24 19:48 Comment) adhesives Allergy Mild Hives Uncoded 06/05/24 19:48 General Stated Complaint: [facility] PAYTON: 3 Review of Systems All systems reviewed & are unremarkable except as noted in HPI and below Exam Narrative Exam Narrative: GENERAL APPEARANCE: Morbid obesity, toxic, awake and alert, atraumatic, moderate acute distress. SKIN: Hot, pink, diaphoretic, umbilicated macular lesions to right forearm with diffuse erythema to right forearm, minor cut from shaving left medial calf without surrounding erythema, no fluctuant swellings in the skin diffusely HEAD: Normocephalic, atraumatic, normal hair distribution for gender/age. EYES: Normal conjunctiva, no exudates on lids/lashes. ENT: Nares patent, no circumoral cyanosis, no facial swelling NECK: Supple, trachea midline, painless cervical ROM. LUNGS/CHEST: Lungs CTA bilaterally-no rhonchi/rales/wheezes diffusely but difficult exam due to body habitus, non-labored respirations, normal A/P diameter, symmetrical expansion, no chest wall deformity HEART (CV/PV): Regular rate-tachycardic and rhythm without murmur, 3+ peripheral edema bilateral lower extremities without pallor or rubor, no JVD. ABDOMEN: Soft, non-distended, no guarding no tenderness. MSK: Normal ROM, no swelling/deformity to bilateral UEs or LEs, moving all extremities without weakness, no cyanosis, spine midline without tenderness, normal curvature. NEURO: Mental Status AAOx4 - alert to person, place, time, events No facial droop, no forehead involvement. Motor: No focal weakness - strength 5/5 in bilateral UEs and LEs, proximal and distal, symmetric. Sensory: sensation intact to light touch globally. Gait normal: patient ambulated without ataxia into ED room. PSYCH: euthymic, cooperative, pleasant, appropriate speech Course Vital Signs Vital signs: Vital Signs Temperature 38.3 C H 06/05/24 19:40 Pulse 127 H 06/05/24 19:40 Respiratory Rate 20 06/05/24 19:40 Blood Pressure 113/54 L 06/05/24 19:40 Pulse Oximetry 100 06/05/24 19:40 Temperature 38.3 C H 06/05/24 19:47 Temperature Source Oral 06/05/24 19:47 Pulse 127 H 06/05/24 19:47 Respiratory Rate 20 06/05/24 19:47 Blood Pressure 113/54 L 06/05/24 19:47 Blood Pressure Position Sitting 06/05/24 19:40 Pulse Oximetry 100 06/05/24 19:47 Oxygen Delivery Method Room Air 06/05/24 19:47 Pain Level 7 06/05/24 19:40 Lab/Test Results Lab/Test Results: 06/05/24 20:22 Blood Blood Culture - Pending 06/05/24 20:34 Blood Blood Culture - Pending Laboratory Tests Range/Units 06/05/24 20:22 WBC (4.4-10.8) 10^3/uL 14.42 H RBC (3.93-5.22) 10^6/uL 3.90 L Hgb (11.2-15.7) g/dL 12.1 Hct (36.0-46.0) % 36.9 MCV (80-95) fL 95 MCH (27.0-33.0) pg 31.0 MCHC (32.0-36.0) % 32.8 RDW (11.7-14.6) % 14.3 Plt Count (130-400) 10^3/uL 299 MPV (8.0-11.0) fL 8.8 Immature Gran % % 0.7 Neutrophils % % 84.8 Lymphocytes % % 9.2 Monocytes % % 5.1 Eosinophils % % 0.0 Basophils % % 0.2 Nucleated RBC % (0.0-0.3) % 0.0 Absolute Neutrophils (1.2-6.7) 10^3/uL 12.23 H Absolute Lymphocytes (1.2-3.4) 10^3/uL 1.33 Absolute Monocytes (0.1-0.8) 10^3/uL 0.74 Absolute Eosinophils (0.0-0.7) 10^3/uL 0.00 Absolute Basophils (0.0-0.2) 10^3/uL 0.03 VBG pH (7.31-7.41) 7.46 H VBG pCO2 (41-51) mmHg 44 VBG pO2 mmHg 39 VBG HCO3 (23-28) mmol/L 31 H VBG Total CO2 (24-29) mmol/L 28 VBG O2 Saturation % 79 VBG Base Excess (-2-3) mmol/L 7 H VBG Lactate (<or=2.0) mmol/L 0.9 Medical Decision Making This dictation utilizes [id number] dictation software and may contain unedited grammatical errors. 39 year-old female presents to ED today by POV/ambulating with a chief complaint of fevers, back pain, L flank pain, swelling to arms and legs, R arm redness with raisued umbilicated papules to forearm, cough with chronic COPD, having taken 6 diuretic pills yesterday with no urine since then, with onset the past few days. Patient has history of IVDU in remote past. Quality described as feels awful, no radiation to chest pain, abdominal pain, nausea/vomiting, neck stiffness/reduced ROM, severe headache, confusion, visual changes, motor deficits. Severity is described as severe. Palliating factors include nothing specific. Provoking factors include nothing specific. Events leading up to the incident/Associated Symptoms: Patient reports cutting her medial calf shaving a few days ago but the area is not overly red. Patients' medical history: Seizure, opioid dependence, asthma, hepatitis C, cannabis abuse, edema, neuropathy, cervical dysplasia, bipolar 1, migraine, tachycardia, history of TBI, obesity, COPD. Family and social history: Denies active illicit drug use, quit years ago, no EtOH use. Pertinent exam findings / vital signs include swelling and redness to entire right arm, bilateral 3+ pitting edema in both legs without rubor or pallor, no abdominal tenderness, no nuchal rigidity, neuro intact, tachycardic, no rhonchi or rales or wheezes to lungs, no labored respirations. Differential / pathologies of concern include sepsis, cellulitis, acute renal failure, infected kidney stone, UTI, PID, endocarditis, spinal epidural abscess less likely. Diagnostic studies of: -CBC, CMP, lactate, procalcitonin, blood cultures, magnesium, COVID/flu/RSV PCR, CRP/ESR, urinalysis, UDS, troponin, VBG, lipase, EKG, XR chest, CT renal colic without contrast. -CBC shows leukocytosis 14.42, 0.7% immature gran., no anemia, elev abs. neutrophils 12.23 -CMP shows hypokalemia 2.8, SCr 1.1 - do not suspect ARF, hypocalcemia 8.0 -Lipase negative -CRP 11, ESR 29 -VBG shows metabolic alkalosis- possibly due to her excess diuretic doses -Magnesium 1.2, repleting -UA without infection, cellulitic R arm as likely source -BNP mildly elev -Trop negative -UDS pending at admit -CT renal colic study shows possible chronic L1 compression fracture, no renal stone/hydro -XR chest unremarkable -EKG shows sinus tachycardia at 121 bpm with P waves followed by narrow complex QRS, normal axis, normal intervals, poor R wave progression, no ST changes, questionable submillimeter ST depression in V4 V5 without reciprocal changes Interventions of: -1710mL 30cc/kg sepsis bolus initiated, IV 2gm cefepime & vancomycin initiated for empiric sepsis coverage- possible renal stone as source vs cellulitis. -Consulted with Hospitalist Dr. Cary at 2200- accepts for admission. Cellulitis as likely source of sepsis- consider MRI scheduled for Saturday if patients L flank CVA tenderness is more suspicious for relation to chronic L1 compression fracture seen on CT with improvement of patients symptoms and re- evaluation ED Course/Assessment/Plan: 39-year-old female presents tachycardic, febrile with diffuse lower extremity swelling acute on chronic and erythematous right arm with history of IVDU, patient is septic with likely source as cellulitis, denies active use or current skin lesions from IVDU, there is no evidence of significant abscess to the right arm, she has a leukocytosis with a white count of 14.4 leading towards left shift with 0.7% immature granulocytes, significant elevation of inflammatory markers, lactate is normal at this time but patient did take significant amounts of her diuretics yesterday perhaps has cleared a lactic acidosis or is masked by metabolic alkalosis at this time, she has significant electrolyte abnormalities that require repletion which was started in the emergency department, her UA shows no signs of infection, CT shows no infected kidney stone but it does show significant compression fracture of L1 patient denies trauma. With her history should be considered for possible MRI but with cellulitis as likely source currently I think she can be admitted with workup for back pain to continue after improvement of current source of infection and current symptoms through medical management, her chest x-ray is unremarkable, she has received cefepime and vancomycin. Disposition of acute sepsis secondary to cellulitis with significant chronic comorbidities and lifestyle risk factors of IV drug use, and COPD. Disposition of Sepsis, Cellulitis. Patient verbalized understanding of the plan and return to ED criteria and engaged in shared decision making. Medical Records Medical records reviewed: Yes I reviewed the patient's medical records. Imaging Data Radiologic Study: Attestation: I personally reviewed and interpreted this imaging study as follows: Imaging: X-Ray Radiologist's impression: Exam: XR Chest Exam date and time: 06/05/2024 9:23 PM Age: 39 years old Clinical indication: Cough, copd TECHNIQUE: Imaging protocol: Radiologic exam of the chest. Views: 2 views. COMPARISON: CR XR CHEST 2V PA LATERAL 07/29/2020 12:22 PM FINDINGS: Lungs: Bilateral lower lobe subsegmental atelectatic changes identified. Pleural spaces: Unremarkable. No pleural effusion. No pneumothorax. Heart/Mediastinum: Unremarkable. No cardiomegaly. Bones/joints: Unremarkable. IMPRESSION: Bilateral lower lobe subsegmental atelectatic changes. Dictated and Authenticated by: Joseph Maya MD. Radiologic Study #2: Attestation: I personally reviewed and interpreted this imaging study as follows: Imaging: CT Scan Radiologist's impression: Exam: CT Abdomen And Pelvis Without Contrast Exam date and time: 06/05/2024 9:16 PM Age: 39 years old Clinical indication: Abdominal pain; Flank; Left TECHNIQUE: Imaging protocol: Computed tomography of the abdomen and pelvis without contrast. COMPARISON: US ABDOMEN LIMITED 03/04/2023 8:20 AM FINDINGS: Lungs: Bilateral lower lobe subsegmental atelectatic changes. Liver: Normal. No mass. Gallbladder and biliary ducts: Normal. No calcified stones. No ductal dilation. Pancreas: Normal. No ductal dilation. Spleen: Normal. No splenomegaly. Adrenal glands: Normal. No mass. Kidneys and ureters: No radiopaque renal calculi. No evidence for hydronephrosis. Stomach and bowel: Mild constipation. Appendix: No evidence of appendicitis. Intraperitoneal space: Unremarkable. No free air. No significant fluid collection. Vasculature: Unremarkable. No abdominal aortic aneurysm. Lymph nodes: Nonenlarged inguinal lymph nodes. Urinary bladder: Unremarkable as visualized. Reproductive: Unremarkable as visualized. Bones/joints: Severe compression fracture identified involving the L1 vertebral body of uncertain age but likely subacute or chronic. Retropulsion identified involving the posterior cortex of the vertebral body resulting in mild to moderate spinal stenosis. Soft tissues: Unremarkable. IMPRESSION: 1. Normal unenhanced CT scan of abdomen and pelvis. 2. Severe compression deformity involving the L1 vertebral body as detailed above likely subacute/chronic. Please correlate with physical exam. Dictated and Authenticated by: Joseph Maya MD. Lab Data Lab results reviewed: Yes I reviewed the patient's lab results. Labs: 06/05/24 21:05 Blood Blood Culture - Pending 06/05/24 20:22 Blood Blood Culture - Pending Laboratory Tests Range/Units 06/05/24 06/05/24 06/05/24 20:22 20:33 20:49 WBC (4.4-10.8) 10^3/uL 14.42 H RBC (3.93-5.22) 10^6/uL 3.90 L Hgb (11.2-15.7) g/dL 12.1 Hct (36.0-46.0) % 36.9 MCV (80-95) fL 95 MCH (27.0-33.0) pg 31.0 MCHC (32.0-36.0) % 32.8 RDW (11.7-14.6) % 14.3 Plt Count (130-400) 10^3/uL 299 MPV (8.0-11.0) fL 8.8 Immature Gran % % 0.7 Neutrophils % % 84.8 Lymphocytes % % 9.2 Monocytes % % 5.1 Eosinophils % % 0.0 Basophils % % 0.2 Nucleated RBC % (0.0-0.3) % 0.0 Absolute Neutrophils (1.2-6.7) 10^3/uL 12.23 H Absolute Lymphocytes (1.2-3.4) 10^3/uL 1.33 Absolute Monocytes (0.1-0.8) 10^3/uL 0.74 Absolute Eosinophils (0.0-0.7) 10^3/uL 0.00 Absolute Basophils (0.0-0.2) 10^3/uL 0.03 ESR (0-20) mm/hr 29 H VBG pH (7.31-7.41) 7.46 H VBG pCO2 (41-51) mmHg 44 VBG pO2 mmHg 39 VBG HCO3 (23-28) mmol/L 31 H VBG Total CO2 (24-29) mmol/L 28 VBG O2 Saturation % 79 VBG Base Excess (-2-3) mmol/L 7 H VBG Lactate (<or=2.0) mmol/L 0.9 Cancelled Sodium (136-145) mmol/L 136 Potassium (3.5-5.1) mmol/L 2.8 L* Chloride (98-107) mmol/L 96 L Carbon Dioxide (21.0-32.0) mmol/L 29.4 Anion Gap (3-11) mmol/L 10.6 BUN (7-18) mg/dL 14 Creatinine (0.55-1.02) mg/dL 1.1 H Est GFR (CKD-EPI 2020) (mL/min/1.73m2) 65.96 Glucose (74-106) mg/dL 116 H Calcium (8.5-10.1) mg/dL 8.0 L Magnesium (1.8-2.4) mg/dL 1.2 L Total Bilirubin (0.2-1.0) mg/dL 0.7 AST (15-37) U/L 46 H ALT (14-59) U/L 32 Alkaline Phosphatase (46-116) U/L 72 Troponin I (<or=51) ng/L 19 Cancelled C-Reactive Protein (<or=0.5) mg/dL 11.63 H NT-Pro-B Natriuret Pep (<300) pg/mL 340 H Total Protein (6.4-8.2) g/dL 6.6 Albumin (3.4-5.0) g/dL 3.1 L Lipase (<78) U/L 26 Procalcitonin ng/mL 0.53 Urine Color (Yellow) Urine Clarity (Clear) Urine pH (5-8) Ur Specific [place] (1.005-1.025) Urine Protein (Neg-Trace) mg/dL Urine Ketones (Negative) mg/dL Urine Blood (Negative) Urine Nitrite (Negative) Urine Bilirubin (Negative) Urine Urobilinogen (Up to 0.2) mg/dL Ur Leukocyte Esterase (Negative) Urine Glucose (Negative) mg/dL Range/Units 06/05/24 06/05/24 21:45 22:49 WBC (4.4-10.8) 10^3/uL RBC (3.93-5.22) 10^6/uL Hgb (11.2-15.7) g/dL Hct (36.0-46.0) % MCV (80-95) fL MCH (27.0-33.0) pg MCHC (32.0-36.0) % RDW (11.7-14.6) % Plt Count (130-400) 10^3/uL MPV (8.0-11.0) fL Immature Gran % % Neutrophils % % Lymphocytes % % Monocytes % % Eosinophils % % Basophils % % Nucleated RBC % (0.0-0.3) % Absolute Neutrophils (1.2-6.7) 10^3/uL Absolute Lymphocytes (1.2-3.4) 10^3/uL Absolute Monocytes (0.1-0.8) 10^3/uL Absolute Eosinophils (0.0-0.7) 10^3/uL Absolute Basophils (0.0-0.2) 10^3/uL ESR (0-20) mm/hr VBG pH (7.31-7.41) VBG pCO2 (41-51) mmHg VBG pO2 mmHg VBG HCO3 (23-28) mmol/L VBG Total CO2 (24-29) mmol/L VBG O2 Saturation % VBG Base Excess (-2-3) mmol/L VBG Lactate (<or=2.0) mmol/L Sodium (136-145) mmol/L Potassium (3.5-5.1) mmol/L Chloride (98-107) mmol/L Carbon Dioxide (21.0-32.0) mmol/L Anion Gap (3-11) mmol/L BUN (7-18) mg/dL Creatinine (0.55-1.02) mg/dL Est GFR (CKD-EPI 2020) (mL/min/1.73m2) Glucose (74-106) mg/dL Calcium (8.5-10.1) mg/dL Magnesium (1.8-2.4) mg/dL Total Bilirubin (0.2-1.0) mg/dL AST (15-37) U/L ALT (14-59) U/L Alkaline Phosphatase (46-116) U/L Troponin I (<or=51) ng/L Cancelled C-Reactive Protein (<or=0.5) mg/dL NT-Pro-B Natriuret Pep (<300) pg/mL Total Protein (6.4-8.2) g/dL Albumin (3.4-5.0) g/dL Lipase (<78) U/L Procalcitonin ng/mL Urine Color (Yellow) Yellow Urine Clarity (Clear) Clear Urine pH (5-8) 6.0 Ur Specific [place] (1.005-1.025) 1.015 Urine Protein (Neg-Trace) mg/dL 30 H Urine Ketones (Negative) mg/dL Negative Urine Blood (Negative) Negative Urine Nitrite (Negative) Negative Urine Bilirubin (Negative) Negative Urine Urobilinogen (Up to 0.2) mg/dL 1.0 H Ur Leukocyte Esterase (Negative) Negative Urine Glucose (Negative) mg/dL Negative Quality:SDOH Health Related Social Needs: No Data to Display PFSH All Active Problems (Updated 06/05/24 @ 22:15 by EDILBERTO Caldwell) Cellulitis of right arm (Acute) Sepsis (Acute) Migraine with aura and without status migrainosus, not intractable (Acute) Migraine without aura, not intractable, without status migrainosus (Acute) Hidradenitis (Acute) Tachycardia (Acute) Hx of traumatic brain injury (Acute) Asthma (Chronic) Dyspepsia (Acute) Prediabetes (Acute) Chronic pain (Chronic) Obesity (Chronic) Hyperlipidemia (Acute) Hx of opioid abuse (Acute) History of narcotic addiction (Acute) Bipolar 2 disorder (Acute) Tubal (Acute) was removed. S/P right knee arthroscopy (Acute) H/O removal of cyst (Acute) COPD (chronic obstructive pulmonary disease) (Acute) Medical History (Updated 06/05/24 @ 22:15 by EDILBERTO Caldwell) Seizure History of traumatic head injury Fatigue Opioid dependence History of prediabetes Mild persistent asthma Multiple joint pain Viral hepatitis C carrier Anxiety Pain, joint, knee, right Cramp in lower extremity associated with sleep Hx of eczema Cannabis abuse Nonulcer dyspepsia Pain of left lower extremity Pain in left arm Localized edema Pain in thoracic spine Insomnia due to other mental disorder Herpes virus disease Lymphedema History of psychiatric disorder Hx of chronic obstructive lung disease Diarrhea Neuropathy Aneurysmal bone cyst Hepatitis C Depression with anxiety Eczema Marijuana use Smoker Cervical dysplasia Suppurative hidradenitis Chronic pain of left lower extremity Back pain Insomnia ADHD Glaucoma Dysuria Nocturnal leg cramps Peripheral neuropathy Headache Seizure after head injury H/O traumatic brain injury Sinusitis Hyperkalemia Lower extremity surgery planned ADD (attention deficit disorder) Bipolar 1 disorder PTSD (post-traumatic stress disorder) Surgical History (Updated 04/10/23 @ 12:40 by Amalia Valenzuela) H/O right knee surgery Family History (Updated 04/10/23 @ 12:39 by Amalia Valenzuela) Mother Heart disease cabg Hyperlipidemia Mental health problem Father Hyperlipidemia Sarcoidosis Brother Mental health problem Son Bipolar 1 disorder Daughter Depression Son Anger Hypertension Maternal Grandfather Diabetes Maternal Grandmother Breast cancer Other COPD (chronic obstructive pulmonary disease) Social History (Updated 08/24/19 @ 09:23 by Joan Okeefe RN) Smoking/Tobacco Use Status: Current every day Tobacco Type: cigarettes Smoking risk assessment performed?: Yes Alcohol Intake: never Drug use: Occasionally Substance use type: former substance user, marijuana and crack/cocaine Details: edibles Household members: family Housing: homeless Number of Children: 3 current occupation: disabled What is your relationship status?: Panel score (0-1 are the most socially isolated patients): 0 What type of physical activity do you participate in: none Seatbelt use: sometimes Do you feel safe at home: Yes Do you feel safe in your relationship?: Yes
[2024-06-05 20:46] LABS: ESR 29 mm/hr (0-20)
[2024-06-05 20:48] LABS: ALT 32 U/L (14-59); AST 46 U/L (15-37); Albumin 3.1 g/dL (3.4-5.0); Alkaline Phosphatase 72 U/L (46-116); Anion Gap 10.6 mmol/L (3-11); BUN 14 mg/dL (7-18); Bilirubin, Total 0.7 mg/dL (0.2-1.0); CO2 29.4 mmol/L (21.0-32.0); CREATININE 1.1 mg/dL (0.55-1.02); Chloride 96 mmol/L (98-107); Estimated GFR 65.96 (mL/min/1.73m2); Glucose 116 mg/dL (74-106); Lipase 26 U/L (<78); Magnesium 1.2 mg/dL (1.8-2.4); Sodium 136 mmol/L (136-145); Total Protein 6.6 g/dL (6.4-8.2); Troponin I 19 ng/L (<or=51)
[2024-06-05 20:50] LABS: Potassium 2.8 mmol/L (3.5-5.1)
[2024-06-05] MEDS: ACETAMINOPHEN 1,000 MG/100 ML BAG 400 MG IVPB (21:00)
[2024-06-05] MEDS: Normal Saline 1,000 ML 1000 ML IV (21:00)
[2024-06-05 21:04] LABS: C-Reactive Protein 11.63 mg/dL (<or=0.5)
--- NOTE | 2024-06-05 21:29 | DI.RAD_ITS ---
Exam(s) XR CHEST 2V PA LATERAL EXAM: XR CHEST 2V PA LATERAL CLINICAL HISTORY: cough; COPD TECHNIQUE: 2D digital imaging was performed of the chest. Two images were obtained. PA and lateral views were obtained. COMPARISON: CR XR CHEST 2V PA LATERAL from 07/29/2020 FINDINGS: MEDIASTINUM: Normal. HEART: Normal. PULMONARY VASCULATURE: Normal. LUNGS: Clear. PLEURAL SPACE: There is linear atelectasis seen in the lungs. No focal consolidating infiltrates are seen. BONE:Within normal limits for the patient's age. OTHER FINDINGS:Normal. IMPRESSION: 1. Bilateral atelectasis. No focal consolidation is present. 2. The preliminary [facility] report was reviewed. DATA REPOSITORY: RADIATION DOSE DELIVERED:
[2024-06-05] MEDS: CEFEPIME 2 GM in Normal Saline 100 ML IVPB (21:39)
[2024-06-05 21:47] LABS: Procalcitonin 0.53 ng/mL
--- NOTE | 2024-06-05 21:48 | DI.[facility]_ITS ---
PROCEDURE INFORMATION: Exam: XR Chest Exam date and time: 06/05/2024 9:23 PM Age: 39 years old Clinical indication: Cough, copd TECHNIQUE: Imaging protocol: Radiologic exam of the chest. Views: 2 views. COMPARISON: CR XR CHEST 2V PA LATERAL 07/29/2020 12:22 PM FINDINGS: Lungs: Bilateral lower lobe subsegmental atelectatic changes identified. Pleural spaces: Unremarkable. No pleural effusion. No pneumothorax. Heart/Mediastinum: Unremarkable. No cardiomegaly. Bones/joints: Unremarkable. IMPRESSION: Bilateral lower lobe subsegmental atelectatic changes. Dictated and Authenticated by: Joseph Maya MD. Orderin Kvng Julien MD
[2024-06-05 21:49] LABS: NT-proBNP 340 pg/mL (<300)
--- NOTE | 2024-06-05 21:52 | DI.[facility]_ITS ---
PROCEDURE INFORMATION: Exam: CT Abdomen And Pelvis Without Contrast Exam date and time: 06/05/2024 9:16 PM Age: 39 years old Clinical indication: Abdominal pain; Flank; Left TECHNIQUE: Imaging protocol: Computed tomography of the abdomen and pelvis without contrast. COMPARISON: US ABDOMEN LIMITED 03/04/2023 8:20 AM FINDINGS: Lungs: Bilateral lower lobe subsegmental atelectatic changes. Liver: Normal. No mass. Gallbladder and biliary ducts: Normal. No calcified stones. No ductal dilation. Pancreas: Normal. No ductal dilation. Spleen: Normal. No splenomegaly. Adrenal glands: Normal. No mass. Kidneys and ureters: No radiopaque renal calculi. No evidence for hydronephrosis. Stomach and bowel: Mild constipation. Appendix: No evidence of appendicitis. Intraperitoneal space: Unremarkable. No free air. No significant fluid collection. Vasculature: Unremarkable. No abdominal aortic aneurysm. Lymph nodes: Nonenlarged inguinal lymph nodes. Urinary bladder: Unremarkable as visualized. Reproductive: Unremarkable as visualized. Bones/joints: Severe compression fracture identified involving the L1 vertebral body of uncertain age but likely subacute or chronic. Retropulsion identified involving the posterior cortex of the vertebral body resulting in mild to moderate spinal stenosis. Soft tissues: Unremarkable. IMPRESSION: 1. Normal unenhanced CT scan of abdomen and pelvis. 2. Severe compression deformity involving the L1 vertebral body as detailed above likely subacute/chronic. Please correlate with physical exam. Dictated and Authenticated by: Joseph Maya MD. Orderin Kvng Julien MD
[2024-06-05 21:58] LABS: Bilirubin Negative (Negative); Blood Negative (Negative); Clarity Clear (Clear); Glucose Negative (Negative); Ketones Negative (Negative); Leukocyte Esterase Negative (Negative); Nitrite Negative (Negative); Specific Gravity 1.015 (1.005-1.025)
[2024-06-05 22:07] LABS: Bacteria Negative HPF (Negative); C & S Indicated? No; Casts 0-2 Hyaline LPF (Negative); Crystals Negative HPF (Negative); Epithelial Cells Few HPF (Negative); Mucus Negative (Negative); WBC Negative HPF (0-5)
[2024-06-05] MEDS: VANCOMYCIN 2,000 MG in Normal Saline 500 ML 250 MG IVPB (22:21)
[2024-06-05 22:34] LABS: *AMPHETAMINES SCREEN URINE Negative (Negative); *BARBITURATES SCREEN URINE Negative (Negative); *BENZODIAZEPINES SCREEN URINE Negative (Negative); Cannabinoids THC Positive (Negative); Cocaine Screen,Urine Positive (Negative); METHADONE URINE SCREEN Negative (Negative); OPIATES URINE SCREEN Negative (Negative)
[2024-06-05 22:36] LABS: Tricyclic Antidepressants Negative (Negative)
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
[2024-06-06] VITALS (7 sets, daily range): BP systolic 103–119; BP diastolic 50–75; PULSE 84–108; RESP 17–24; TEMP 36–37.7; O2SAT 92–98
[2024-06-06 00:56] LABS: COVID-19 PCR Negative (Negative); Influenza A PCR Negative (Negative); Influenza B PCR Negative (Negative); RSV PCR Negative (Negative); Source Nasopharynx
[2024-06-06] MEDS: POTASSIUM CHLORIDE 20 MEQ/100 ML BAG 50 MEQ IV_INF ×2 (01:45→04:01)
[2024-06-06] MEDS: MAGNESIUM SULFATE 2 GM/50 ML BAG IV_INF (02:11)
--- NOTE | 2024-06-06 03:28 | W.PC.ACHO ---
Registration Status: Primary Language: Preferred Language: ED Information & Data Chief Complaint GenMedical 06/05/24 20:42 Triage Note Patient reported swelling to 06/05/24 19:40 bilateral hands. the right worst than the left. the right forearm noted with pustules, bilateral swelling in both extremities, right left worst than the left. All limbs are warm to touch. Patient state the swelling started 3 days ago and it has been getting worst. Reported that she her neck is also painful, and it migrates to her back. She state she was recently started back on suboxone. Patient thinks she might have kidney stones Medical / Surgical History (Last Updated 06/05/24 @ 23:54 by Hernandez Cary) Seizure History of traumatic head injury Fatigue Opioid dependence History of prediabetes Mild persistent asthma Multiple joint pain Viral hepatitis C carrier Anxiety Pain, joint, knee, right Cramp in lower extremity associated with sleep Hx of eczema Cannabis abuse Nonulcer dyspepsia Pain of left lower extremity Pain in left arm Localized edema Pain in thoracic spine Insomnia due to other mental disorder Herpes virus disease Lymphedema History of psychiatric disorder Hx of chronic obstructive lung disease Diarrhea Neuropathy Aneurysmal bone cyst Hepatitis C Depression with anxiety Eczema Marijuana use Smoker Cervical dysplasia Suppurative hidradenitis Chronic pain of left lower extremity Back pain Insomnia ADHD Glaucoma Dysuria Nocturnal leg cramps Peripheral neuropathy Headache Seizure after head injury H/O traumatic brain injury Sinusitis Hyperkalemia Lower extremity surgery planned ADD (attention deficit disorder) Bipolar 1 disorder PTSD (post-traumatic stress disorder) (Last Reviewed 06/05/24 @ 23:24 by Hernandez Cary) H/O right knee surgery Most Recent Vital Signs Temperature 36.7 C 06/06/24 00:47 Temperature Source Oral 06/05/24 19:47 Pulse 103 H 06/06/24 00:47 Respiratory Rate 17 06/06/24 02:11 Respiratory Effort Normal, Non-Labored 06/06/24 02:11 Respiratory Pattern Normal 06/06/24 00:47 Blood Pressure 103/56 L 06/06/24 00:47 Blood Pressure Position Sitting 06/05/24 19:40 Pulse Oximetry 98 06/06/24 00:47 Oxygen Delivery Method Room Air 06/06/24 00:47 Oxygen Flow Rate 0 06/06/24 00:47 Pain Level 7 06/06/24 00:47 Allergies lamotrigine (From Lamictal) Allergy (Severe, Unverified 06/05/24 19:48) Hives erythromycin base Allergy (Unknown, Verified 06/05/24 19:48) Other (See Comment) Mother has severe reaction transparent dressing Allergy (Unknown, Verified 06/05/24 19:48) Other (See Comment) unknown adhesives Allergy (Mild, Uncoded 06/05/24 19:48) Hives Active Medications Generic Name Dose Route Start Last Admin Trade Name Freq PRN Reason Stop Dose Admin Mirtazapine 30 mg 06/06/24 01:30 06/06/24 02:43 Mirtazapine 15 Mg Tab PO Not Given HS WILL Prazosin HCl 2 mg 06/06/24 01:30 06/06/24 02:44 Prazosin 2 Mg Cap PO Not Given HS WILL Prazosin HCl 1 mg 06/06/24 01:30 06/06/24 02:44 Prazosin 1 Mg Cap PO Not Given HS WILL IV IV Catheter Type [Left Wrist] Saline Lock IV Catheter Gauge [Left Wrist] 18 Diet Orders Category Date Time Status Heart Healthy Eating [DIET] Nutrition 06/06/24 Breakfast Active Diagnostics 06/06/24 06/06/24 06/06/24 Range/Units 05:35 01:00 00:10 WBC Pending (4.4-10.8) 10^3/uL RBC Pending (3.93-5.22) 10^6/uL Hgb Pending (11.2-15.7) g/dL Hct Pending (36.0-46.0) % MCV Pending (80-95) fL MCH Pending (27.0-33.0) pg MCHC Pending (32.0-36.0) % RDW Pending (11.7-14.6) % Plt Count Pending (130-400) 10^3/uL MPV Pending (8.0-11.0) fL Immature Gran % % Neutrophils % % Lymphocytes % % Monocytes % % Eosinophils % % Basophils % % Nucleated RBC % (0.0-0.3) % Absolute Neutrophils (1.2-6.7) 10^3/uL Absolute Lymphocytes (1.2-3.4) 10^3/uL Absolute Monocytes (0.1-0.8) 10^3/uL Absolute Eosinophils (0.0-0.7) 10^3/uL Absolute Basophils (0.0-0.2) 10^3/uL ESR (0-20) mm/hr PT Pending INR Pending VBG pH (7.31-7.41) VBG pCO2 (41-51) mmHg VBG pO2 mmHg VBG HCO3 (23-28) mmol/L VBG Total CO2 (24-29) mmol/L VBG O2 Saturation % VBG Base Excess (-2-3) mmol/L VBG Lactate (<or=2.0) mmol/L Sodium Pending (136-145) mmol/L Potassium Pending (3.5-5.1) mmol/L Chloride Pending (98-107) mmol/L Carbon Dioxide Pending (21.0-32.0) mmol/L Anion Gap Pending (3-11) mmol/L BUN Pending (7-18) mg/dL Creatinine Pending (0.55-1.02) mg/dL Est GFR (CKD-EPI 2020) Pending (mL/min/1.73m2) Glucose Pending (74-106) mg/dL Calcium Pending (8.5-10.1) mg/dL Magnesium Pending (1.8-2.4) mg/dL Total Bilirubin Pending (0.2-1.0) mg/dL AST Pending (15-37) U/L ALT Pending (14-59) U/L Alkaline Phosphatase Pending (46-116) U/L Troponin I (<or=51) ng/L C-Reactive Protein (<or=0.5) mg/dL NT-Pro-B Natriuret Pep (<300) pg/mL Total Protein Pending (6.4-8.2) g/dL Albumin Pending (3.4-5.0) g/dL Lipase (<78) U/L Procalcitonin ng/mL TSH Pending Urine Color (Yellow) Urine Clarity (Clear) Urine pH (5-8) Ur Specific [place] (1.005-1.025) Urine Protein (Neg-Trace) mg/dL Urine Ketones (Negative) mg/dL Urine Blood (Negative) Urine Nitrite (Negative) Urine Bilirubin (Negative) Urine Urobilinogen (Up to 0.2) mg/dL Ur Leukocyte Esterase (Negative) Urine RBC (0-2) HPF Urine WBC (0-5) HPF Ur Epithelial Cells (Negative) HPF Urine Crystals (Negative) HPF Urine Bacteria (Negative) HPF Urine Casts (Negative) LPF Urine Mucus (Negative) Ur Culture Indicated? Urine Glucose (Negative) mg/dL Urine Opiates Screen (Negative) Ur Buprenorphine Ur Norbuprenorphine Ur Oxycodone Screen Urine Methadone Screen (Negative) Ur Barbiturates Screen (Negative) Ur Tricyclics Screen (Negative) Ur Amphetamines Screen (Negative) U Benzodiazepines Scrn (Negative) Urine Cocaine Screen (Negative) Ur THC Screen (Negative) Urine Xylazine COVID-19 Source Nasopharynx SARS-CoV-2 (PCR) Negative (Negative) Influenza Type A (PCR) Negative (Negative) Influenza Type B (PCR) Negative (Negative) RSV (PCR) Negative (Negative) 06/05/24 06/05/24 06/05/24 Range/Units 23:52 22:49 21:45 WBC (4.4-10.8) 10^3/uL RBC (3.93-5.22) 10^6/uL Hgb (11.2-15.7) g/dL Hct (36.0-46.0) % MCV (80-95) fL MCH (27.0-33.0) pg MCHC (32.0-36.0) % RDW (11.7-14.6) % Plt Count (130-400) 10^3/uL MPV (8.0-11.0) fL Immature Gran % % Neutrophils % % Lymphocytes % % Monocytes % % Eosinophils % % Basophils % % Nucleated RBC % (0.0-0.3) % Absolute Neutrophils (1.2-6.7) 10^3/uL Absolute Lymphocytes (1.2-3.4) 10^3/uL Absolute Monocytes (0.1-0.8) 10^3/uL Absolute Eosinophils (0.0-0.7) 10^3/uL Absolute Basophils (0.0-0.2) 10^3/uL ESR (0-20) mm/hr PT INR VBG pH (7.31-7.41) VBG pCO2 (41-51) mmHg VBG pO2 mmHg VBG HCO3 (23-28) mmol/L VBG Total CO2 (24-29) mmol/L VBG O2 Saturation % VBG Base Excess (-2-3) mmol/L VBG Lactate (<or=2.0) mmol/L Sodium (136-145) mmol/L Potassium (3.5-5.1) mmol/L Chloride (98-107) mmol/L Carbon Dioxide (21.0-32.0) mmol/L Anion Gap (3-11) mmol/L BUN (7-18) mg/dL Creatinine (0.55-1.02) mg/dL Est GFR (CKD-EPI 2020) (mL/min/1.73m2) Glucose (74-106) mg/dL Calcium (8.5-10.1) mg/dL Magnesium (1.8-2.4) mg/dL Total Bilirubin (0.2-1.0) mg/dL AST (15-37) U/L ALT (14-59) U/L Alkaline Phosphatase (46-116) U/L Troponin I Cancelled (<or=51) ng/L C-Reactive Protein (<or=0.5) mg/dL NT-Pro-B Natriuret Pep (<300) pg/mL Total Protein (6.4-8.2) g/dL Albumin (3.4-5.0) g/dL Lipase (<78) U/L Procalcitonin ng/mL TSH Urine Color Yellow (Yellow) Urine Clarity Clear (Clear) Urine pH 6.0 (5-8) Ur Specific [place] 1.015 (1.005-1.025) Urine Protein 30 H (Neg-Trace) mg/dL Urine Ketones Negative (Negative) mg/dL Urine Blood Negative (Negative) Urine Nitrite Negative (Negative) Urine Bilirubin Negative (Negative) Urine Urobilinogen 1.0 H (Up to 0.2) mg/dL Ur Leukocyte Esterase Negative (Negative) Urine RBC 3-5 H (0-2) HPF Urine WBC Negative (0-5) HPF Ur Epithelial Cells Few (Negative) HPF Urine Crystals Negative (Negative) HPF Urine Bacteria Negative (Negative) HPF Urine Casts 0-2 Hyaline (Negative) LPF Urine Mucus Negative (Negative) Ur Culture Indicated? No Urine Glucose Negative (Negative) mg/dL Urine Opiates Screen Negative (Negative) Ur Buprenorphine Pending Ur Norbuprenorphine Pending Ur Oxycodone Screen Pending Urine Methadone Screen Negative (Negative) Ur Barbiturates Screen Negative (Negative) Ur Tricyclics Screen Negative (Negative) Ur Amphetamines Screen Negative (Negative) U Benzodiazepines Scrn Negative (Negative) Urine Cocaine Screen Positive A (Negative) Ur THC Screen Positive A (Negative) Urine Xylazine Pending COVID-19 Source SARS-CoV-2 (PCR) (Negative) Influenza Type A (PCR) (Negative) Influenza Type B (PCR) (Negative) RSV (PCR) (Negative) 06/05/24 06/05/24 06/05/24 Range/Units 20:49 20:33 20:22 WBC 14.42 H (4.4-10.8) 10^3/uL RBC 3.90 L (3.93-5.22) 10^6/uL Hgb 12.1 (11.2-15.7) g/dL Hct 36.9 (36.0-46.0) % MCV 95 (80-95) fL MCH 31.0 (27.0-33.0) pg MCHC 32.8 (32.0-36.0) % RDW 14.3 (11.7-14.6) % Plt Count 299 (130-400) 10^3/uL MPV 8.8 (8.0-11.0) fL Immature Gran % 0.7 % Neutrophils % 84.8 % Lymphocytes % 9.2 % Monocytes % 5.1 % Eosinophils % 0.0 % Basophils % 0.2 % Nucleated RBC % 0.0 (0.0-0.3) % Absolute Neutrophils 12.23 H (1.2-6.7) 10^3/uL Absolute Lymphocytes 1.33 (1.2-3.4) 10^3/uL Absolute Monocytes 0.74 (0.1-0.8) 10^3/uL Absolute Eosinophils 0.00 (0.0-0.7) 10^3/uL Absolute Basophils 0.03 (0.0-0.2) 10^3/uL ESR 29 H (0-20) mm/hr PT INR VBG pH 7.46 H (7.31-7.41) VBG pCO2 44 (41-51) mmHg VBG pO2 39 mmHg VBG HCO3 31 H (23-28) mmol/L VBG Total CO2 28 (24-29) mmol/L VBG O2 Saturation 79 % VBG Base Excess 7 H (-2-3) mmol/L VBG Lactate Cancelled 0.9 (<or=2.0) mmol/L Sodium 136 (136-145) mmol/L Potassium 2.8 L* (3.5-5.1) mmol/L Chloride 96 L (98-107) mmol/L Carbon Dioxide 29.4 (21.0-32.0) mmol/L Anion Gap 10.6 (3-11) mmol/L BUN 14 (7-18) mg/dL Creatinine 1.1 H (0.55-1.02) mg/dL Est GFR (CKD-EPI 2020) 65.96 (mL/min/1.73m2) Glucose 116 H (74-106) mg/dL Calcium 8.0 L (8.5-10.1) mg/dL Magnesium 1.2 L (1.8-2.4) mg/dL Total Bilirubin 0.7 (0.2-1.0) mg/dL AST 46 H (15-37) U/L ALT 32 (14-59) U/L Alkaline Phosphatase 72 (46-116) U/L Troponin I Cancelled 19 (<or=51) ng/L C-Reactive Protein 11.63 H (<or=0.5) mg/dL NT-Pro-B Natriuret Pep 340 H (<300) pg/mL Total Protein 6.6 (6.4-8.2) g/dL Albumin 3.1 L (3.4-5.0) g/dL Lipase 26 (<78) U/L Procalcitonin 0.53 ng/mL TSH Urine Color (Yellow) Urine Clarity (Clear) Urine pH (5-8) Ur Specific [place] (1.005-1.025) Urine Protein (Neg-Trace) mg/dL Urine Ketones (Negative) mg/dL Urine Blood (Negative) Urine Nitrite (Negative) Urine Bilirubin (Negative) Urine Urobilinogen (Up to 0.2) mg/dL Ur Leukocyte Esterase (Negative) Urine RBC (0-2) HPF Urine WBC (0-5) HPF Ur Epithelial Cells (Negative) HPF Urine Crystals (Negative) HPF Urine Bacteria (Negative) HPF Urine Casts (Negative) LPF Urine Mucus (Negative) Ur Culture Indicated? Urine Glucose (Negative) mg/dL Urine Opiates Screen (Negative) Ur Buprenorphine Ur Norbuprenorphine Ur Oxycodone Screen Urine Methadone Screen (Negative) Ur Barbiturates Screen (Negative) Ur Tricyclics Screen (Negative) Ur Amphetamines Screen (Negative) U Benzodiazepines Scrn (Negative) Urine Cocaine Screen (Negative) Ur THC Screen (Negative) Urine Xylazine COVID-19 Source SARS-CoV-2 (PCR) (Negative) Influenza Type A (PCR) (Negative) Influenza Type B (PCR) (Negative) RSV (PCR) (Negative) 06/05/24 21:05 Blood Culture - Pending Blood 06/05/24 20:22 Blood Culture - Pending Blood Intake and Output - 24 Hour Total 06/05/24 19:29 thru 06/06/24 02:25 Intake Total 1700 Output Total 1000 Balance 700 Weight 128.9 kg Intake: IV 1700 Output: Urine 1000 Other: Urine Color Dark [place] Urine Appearance Clear Urine Odor None Urinary Catheter Urinary Catheter Date of 06/05/24 Insertion [Urethral ([place])] Time of insertion [Urethral ( 21:55 [place])] Falls Risk Assessment History of Falls No History 06/06/24 02:11 Contributing Factors No Factors 06/06/24 02:11 Ambulatory Aids Independent 06/06/24 02:11 Tubes/Lines None 06/06/24 02:11 Gait Evaluation No gait disturbance 06/06/24 02:11 Cognition No cognitive impairment 06/06/24 02:11 Fall Total Score 0 06/06/24 02:11 Level of Risk Standard/Low Risk 06/06/24 02:11 Problems (Last Updated 06/05/24 @ 23:54 by Hernandez Cary) Hypomagnesemia (Acute) Hypokalemia (Acute) Drug use disorder (Chronic) Cellulitis of right arm (Acute) Sepsis (Acute) Asthma (Chronic) v v v v v v v v v Sending and/or Receiving Nurses: Please use comment section below to note any information pertinent to the patient hand-off not included above. Information / Comments: Report received from: TAMIKO Parr. Patient is alert and oriented x4. She presented with sepsis type symptoms and has cellulitis of the right arm. Blood cultures were drawn. K was 2.8. Past few days has not been feeling well and has been taking 6 diuretic pills daily with decreased urine output. HRR, LS CTA, on room air. Patient to be transported to [facility].
[2024-06-06] MEDS: Water,Injection,Sterile 10 ML VIAL (05:55)
[2024-06-06] MEDS: VANCOMYCIN 1,250 MG in Normal Saline 250 ML 166.667 MG IVPB (05:57)
[2024-06-06] MEDS: POTASSIUM CHLORIDE/0.9% NACL 1,000 ML 125 MEQ IV ×2 (06:01→20:40)
[2024-06-06 07:28] LABS: HGB 11.3 g/dL (11.2-15.7); MCH 30.9 pg (27.0-33.0); MCHC 32.3 % (32.0-36.0); MCV 96 fL (80-95); MPV 9.2 fL (8.0-11.0); Platelet Count 273 10^3/uL (130-400); RBC 3.66 10^6/uL (3.93-5.22); RDW 14.4 % (11.7-14.6); RDW-SD 50.5 fL; WBC 10.12 10^3/uL (4.4-10.8)
[2024-06-06 07:38] LABS: Prothrombin Time 10.2 sec (9.1-11.1)
[2024-06-06 07:47] LABS: ALT 41 U/L (14-59); AST 80 U/L (15-37); Albumin 2.7 g/dL (3.4-5.0); Alkaline Phosphatase 67 U/L (46-116); Anion Gap 7.5 mmol/L (3-11); BUN 10 mg/dL (7-18); Bilirubin, Total 0.6 mg/dL (0.2-1.0); CO2 28.5 mmol/L (21.0-32.0); CREATININE 0.9 mg/dL (0.55-1.02); Calcium 7.5 mg/dL (8.5-10.1); Chloride 102 mmol/L (98-107); Estimated GFR 83.92 (mL/min/1.73m2); Glucose 124 mg/dL (74-106); Potassium 3.1 mmol/L (3.5-5.1); Sodium 138 mmol/L (136-145); Total Protein 6.1 g/dL (6.4-8.2)
[2024-06-06 08:08] LABS: TSH (W/Ref FT4) 1.15 uIU/mL (0.36-3.74)
--- NOTE | 2024-06-06 09:18 | PGE_ITS ---
Date of Service Date of service: 06/06/24 Time of Service: 09:18 Assessment and Plan Assessment and plan (1) Sepsis: Start date: 06/06/24 Start time: 09:51 Status: Acute Assessment and plan: This is a 39-year-old lady with history of IV drug admitted with with right arm swelling and redness as well as blistering sepsis criteria with WBC of 14.42 and tachycardia at HR 95 but no endorgan dysfunction, lactemia or hypotension to qualify for severe sepsis blood cultures growing GPC in clusters this afternoon in 1 bottle only the other is pending Urine culture still pending Continue IV cefepime and vancomycin follow-up on cultures Urine drug screen was positive for cocaine and she may be reusing IV drugs with total drug screen pending and patient chronically take-home Suboxone. Continue IV antibiotic therapy and wound care as needed with adjustment of antibiotic therapy depending on patient's response clinically and by culture. Continue IV hydration. She is a full code. (2) Gram-positive bacteremia: Status: Acute Assessment and plan: As above Blood cultures reordered Poor IV access- Midline consult ordered (3) Cellulitis of right arm: Start date: 06/06/24 Status: Acute Assessment and plan: Right arm swelling for 4 days with patient not admitting to IV drug use or lesions to initiate this process. Continue to adjust antibiotic therapy according to cultures and clinical response. (4) Cocaine abuse: Start date: 06/06/24 Status: Acute Assessment and plan: USD postive for cocaine- HR 105 this AM Clonidine PRN (5) Hypokalemia: Start date: 06/05/24 Status: Acute Assessment and plan: K 3.1 - oral replacement ordered BMP in AM (6) Hypomagnesemia: Start date: 06/05/24 Status: Acute Assessment and plan: Resolved Mag in AM (7) Asthma: Status: Chronic Assessment and plan: Continue outpatient medical therapy. (8) Drug use disorder: Status: Chronic Assessment and plan: Patient does have positive cocaine PRN clonidine (9) Opioid dependence: Assessment and plan: Continue Suboxone. (10) Hepatitis C: Assessment and plan: Patient is has been treated and cleared to go on her problem list is states that she has a chronic hep C carrier. Follow-up with PCP. (11) Depression with anxiety: Assessment and plan: Continue outpatient medical management - hold off benzodiazepines while on narcotic therapy w positive urine drug screen (12) PTSD (post-traumatic stress disorder): Assessment and plan: On home dosing of prazosin (13) Migraine: Status: Chronic Assessment and plan: Neurology initiated depakote -not listed - not taking APAP schedule (14) Seizure: Assessment and plan: Continue outpatient medical therapy with keppra. (15) On deep vein thrombosis (DVT) prophylaxis: Status: Acute Assessment and plan: ON LMWH Discussed with Dr. Garner Subjective Subjective Patient reports: no new complaints, still having pain, tolerating liquids well, tolerating a regular diet, voiding w/o difficulty, flatus and no bowel movement; denies diarrhea, vomiting, shortness of breath or fever Exam Narrative Exam Narrative: Constitutional In bed, no acute distress obese body habitus Neuro:alert and oriented X4; no neurological focal deficit Resp: Normal respiratory pattern, speaks in full sentences, unlabored breathing, clear lung bilaterally Cardio: regular rhythm, S1, S2, bilateral radial and dorsalis pedis pulses are positive, palpable GI: Abdomen is large, not distended, soft and non tender, bowel sounds are present : no bladder distension/[place] catheter to be discontinued Back/spine/Pelvis: No back tenderness, normal alignment Integumentary: Right upper extremity shows erythema, swelling with areas of raised closed vesicles, ROM intact Psych: RASS 0, congruent mood and normal affect. Objective Last Vital Signs Temp 37.7 C H 06/06/24 07:53 Pulse 105 H 06/06/24 07:53 Resp 20 06/06/24 07:53 BP 119/71 06/06/24 07:53 Pulse Ox 95 06/06/24 07:53 Laboratory Results - last 24 hr 06/05/24 06/05/24 06/05/24 20:22 20:33 20:49 WBC 14.42 H RBC 3.90 L Hgb 12.1 Hct 36.9 MCV 95 MCH 31.0 MCHC 32.8 RDW 14.3 Plt Count 299 MPV 8.8 Immature Gran % 0.7 Neutrophils % 84.8 Lymphocytes % 9.2 Monocytes % 5.1 Eosinophils % 0.0 Basophils % 0.2 Nucleated RBC % 0.0 Absolute Neutrophils 12.23 H Absolute Lymphocytes 1.33 Absolute Monocytes 0.74 Absolute Eosinophils 0.00 Absolute Basophils 0.03 ESR 29 H PT INR VBG pH 7.46 H VBG pCO2 44 VBG pO2 39 VBG HCO3 31 H VBG Total CO2 28 VBG O2 Saturation 79 VBG Base Excess 7 H VBG Lactate 0.9 Cancelled Sodium 136 Potassium 2.8 L* Chloride 96 L Carbon Dioxide 29.4 Anion Gap 10.6 BUN 14 Creatinine 1.1 H Est GFR (CKD-EPI 2020) 65.96 Glucose 116 H Calcium 8.0 L Magnesium 1.2 L Total Bilirubin 0.7 AST 46 H ALT 32 Alkaline Phosphatase 72 Troponin I 19 Cancelled C-Reactive Protein 11.63 H NT-Pro-B Natriuret Pep 340 H Total Protein 6.6 Albumin 3.1 L Lipase 26 Procalcitonin 0.53 TSH Urine Color Urine Clarity Urine pH Ur Specific [place] Urine Protein Urine Ketones Urine Blood Urine Nitrite Urine Bilirubin Urine Urobilinogen Ur Leukocyte Esterase Urine RBC Urine WBC Ur Epithelial Cells Urine Crystals Urine Bacteria Urine Casts Urine Mucus Ur Culture Indicated? Urine Glucose Urine Opiates Screen Urine Methadone Screen Ur Barbiturates Screen Ur Tricyclics Screen Ur Amphetamines Screen U Benzodiazepines Scrn Urine Cocaine Screen Ur THC Screen COVID-19 Source SARS-CoV-2 (PCR) Influenza Type A (PCR) Influenza Type B (PCR) RSV (PCR) 06/05/24 06/05/24 06/06/24 21:45 22:49 00:10 WBC RBC Hgb Hct MCV MCH MCHC RDW Plt Count MPV Immature Gran % Neutrophils % Lymphocytes % Monocytes % Eosinophils % Basophils % Nucleated RBC % Absolute Neutrophils Absolute Lymphocytes Absolute Monocytes Absolute Eosinophils Absolute Basophils ESR PT INR VBG pH VBG pCO2 VBG pO2 VBG HCO3 VBG Total CO2 VBG O2 Saturation VBG Base Excess VBG Lactate Sodium Potassium Chloride Carbon Dioxide Anion Gap BUN Creatinine Est GFR (CKD-EPI 2020) Glucose Calcium Magnesium Total Bilirubin AST ALT Alkaline Phosphatase Troponin I Cancelled C-Reactive Protein NT-Pro-B Natriuret Pep Total Protein Albumin Lipase Procalcitonin TSH Urine Color Yellow Urine Clarity Clear Urine pH 6.0 Ur Specific [place] 1.015 Urine Protein 30 H Urine Ketones Negative Urine Blood Negative Urine Nitrite Negative Urine Bilirubin Negative Urine Urobilinogen 1.0 H Ur Leukocyte Esterase Negative Urine RBC 3-5 H Urine WBC Negative Ur Epithelial Cells Few Urine Crystals Negative Urine Bacteria Negative Urine Casts 0-2 Hyaline Urine Mucus Negative Ur Culture Indicated? No Urine Glucose Negative Urine Opiates Screen Negative Urine Methadone Screen Negative Ur Barbiturates Screen Negative Ur Tricyclics Screen Negative Ur Amphetamines Screen Negative U Benzodiazepines Scrn Negative Urine Cocaine Screen Positive A Ur THC Screen Positive A COVID-19 Source Nasopharynx SARS-CoV-2 (PCR) Negative Influenza Type A (PCR) Negative Influenza Type B (PCR) Negative RSV (PCR) Negative 06/06/24 06:45 WBC 10.12 RBC 3.66 L Hgb 11.3 Hct 35.0 L MCV 96 H MCH 30.9 MCHC 32.3 RDW 14.4 Plt Count 273 MPV 9.2 Immature Gran % Neutrophils % Lymphocytes % Monocytes % Eosinophils % Basophils % Nucleated RBC % Absolute Neutrophils Absolute Lymphocytes Absolute Monocytes Absolute Eosinophils Absolute Basophils ESR PT 10.2 INR 1.0 VBG pH VBG pCO2 VBG pO2 VBG HCO3 VBG Total CO2 VBG O2 Saturation VBG Base Excess VBG Lactate Sodium 138 Potassium 3.1 L Chloride 102 Carbon Dioxide 28.5 Anion Gap 7.5 BUN 10 Creatinine 0.9 Est GFR (CKD-EPI 2020) 83.92 Glucose 124 H Calcium 7.5 L Magnesium 2.0 Total Bilirubin 0.6 AST 80 H ALT 41 Alkaline Phosphatase 67 Troponin I C-Reactive Protein NT-Pro-B Natriuret Pep Total Protein 6.1 L Albumin 2.7 L Lipase Procalcitonin TSH 1.15 Urine Color Urine Clarity Urine pH Ur Specific [place] Urine Protein Urine Ketones Urine Blood Urine Nitrite Urine Bilirubin Urine Urobilinogen Ur Leukocyte Esterase Urine RBC Urine WBC Ur Epithelial Cells Urine Crystals Urine Bacteria Urine Casts Urine Mucus Ur Culture Indicated? Urine Glucose Urine Opiates Screen Urine Methadone Screen Ur Barbiturates Screen Ur Tricyclics Screen Ur Amphetamines Screen U Benzodiazepines Scrn Urine Cocaine Screen Ur THC Screen COVID-19 Source SARS-CoV-2 (PCR) Influenza Type A (PCR) Influenza Type B (PCR) RSV (PCR) Time Spent with Patient Time Spent with Patient: >50 minutes Time was spent: preparing to see the patient(eg.review tests), obtaining and/or reviewing separately otained hiistory, ordering medications,tests, procedures, referring, communicating with other health children's zoo caretaker, indepentently interpreting results, counseling the patient and care coordination
--- NOTE | 2024-06-06 10:06 | INITIAL_ITS ---
Date of service: 06/06/24 Time of Service: 10:06 Care Management Initial Assmt Initial Assessment Reason for Hospitalization: Sepsis, cellulitis R arm Functional Status/Living Situation Patient Presentation: Inna was sitting up in her chair when CM met with her. She appeared tired, and had a fan on her; she stated that she is very hot, and that she has a fever, so she is not feeling well. She stated that she lives in [place] with her grandmother, and she is not currently working. She stated that her needs are met, though. Per report, she lost IV access this morning, and Inna reported that she is waiting for another RN to arrive and attempt to start another IV. Per report, blood cultures are pending. CM will continue to follow. Town of Residence: [place] Resides with: Parent (grandmother) Significant Other/Family: Out of area Employment Status: Disabled Instrumental Activities of Daily Living (ADLs): Independent Medications Medication Management: No Issues/Barriers identified Advance Directives Advance Directives: Do you have an Advance Directive: N 08/11/12 11:10 AD On File at [facility]: N 04/15/12 14:05 Date Asked 06/05/24 06/05/24 22:52 AD Date Reviewed 06/05/24 06/05/24 22:52 COLST On File at [facility] COLST Date Scanned Code Status Resuscitation Status Full Code Insurance Coverage/Financial Issues Insurance: [facility] Care Team Visit Care Team Role Provider Type Zora Madsen APRN MD [facility] STAFF PHYSICIAN Anita Awad Primary Care Provider ADV PRACTICE REGISTERED NURSE EDILBERTO Caldwell Emergency Provider PHYSICIANS HARVESTING MANAGER Hernandez [place] Admit Provider NON-[facility] STAFF PHYSICIAN Attending Provider Discharge Potential Discharge Needs: PCP F/U Appt Anticipated Barriers to Discharge: None Identified Patient/Family Education Needs: Review discharge instructions, discuss Ask Me Three Transportation: Private vehicle Plan: Anticipate Inna will return home once medically cleared. She will transport via private vehicle by family. She will follow up with her PCP and discharge plan of care. CM will continue to follow. Social Determinants of Health Screening Social Determinants of health last assessed in clinic: 06/06/24 Will the Patient Participate in the Screening?: Yes Do you worry about having a steady place to live?: no Problems where you live: other In the past 12 months, have you had to go without electric, gas, oil or water in your home?: no 1. Within the past 12 months, we worried whether our food would run out before we got money to buy more.: Never true 2. Within the past 12 months, the food we bought just didn't last and we didn't have money to get more.: Never true Has lack of transportation kept you from medical appointments or from doing thin gs needed for daily living?: no Has anyone in your life made you feel unsafe or unsupported?: no How hard is it for you to pay for the very basics like food, housing, medical care, and heating? Would you say it is:: Not hard at all Do you want help finding or keeping work or a job?: I do not need or want help If for any reason you need help with day-to-day activities such as bathing, preparing meals, shopping, managing finances, etc., do you get the help you need?: I don?t need any help How often do you feel lonely or isolated from those around you?: Always Do you speak a language other than Lebanese at home?: No Health Related Social Needs Health related social needs: inadequate housing (Z59.1) and feeling lonely/isolated (Z60.8) PFSH All Active Problems (Updated 06/06/24 @ 09:56 by Zora Madsen APRN) Migraine (Chronic) Cocaine abuse (Acute) Hypomagnesemia (Acute) Hypokalemia (Acute) Drug use disorder (Chronic) Cellulitis of right arm (Acute) Sepsis (Acute) Migraine with aura and without status migrainosus, not intractable (Acute) Migraine without aura, not intractable, without status migrainosus (Acute) Hidradenitis (Acute) Tachycardia (Acute) Hx of traumatic brain injury (Acute) Asthma (Chronic) Dyspepsia (Acute) Prediabetes (Acute) Chronic pain (Chronic) Obesity (Chronic) Hyperlipidemia (Chronic) Hx of opioid abuse (Acute) History of narcotic addiction (Acute) Bipolar 2 disorder (Acute) Tubal (Acute) was removed. S/P right knee arthroscopy (Acute) H/O removal of cyst (Acute) COPD (chronic obstructive pulmonary disease) (Acute) Medical History (Updated 06/06/24 @ 09:56 by Zora Tena, SENIOR ASIC ENGINEER) Seizure History of traumatic head injury Fatigue Opioid dependence History of prediabetes Mild persistent asthma Multiple joint pain Viral hepatitis C carrier Anxiety Pain, joint, knee, right Cramp in lower extremity associated with sleep Hx of eczema Cannabis abuse Nonulcer dyspepsia Pain of left lower extremity Pain in left arm Localized edema Pain in thoracic spine Insomnia due to other mental disorder Herpes virus disease Lymphedema History of psychiatric disorder Hx of chronic obstructive lung disease Diarrhea Neuropathy Aneurysmal bone cyst Hepatitis C Depression with anxiety Eczema Marijuana use Smoker Cervical dysplasia Suppurative hidradenitis Chronic pain of left lower extremity Back pain Insomnia ADHD Glaucoma Dysuria Nocturnal leg cramps Peripheral neuropathy Headache Seizure after head injury H/O traumatic brain injury Sinusitis Hyperkalemia Lower extremity surgery planned ADD (attention deficit disorder) Bipolar 1 disorder PTSD (post-traumatic stress disorder) Surgical History H/O right knee surgery Family History Mother Heart disease cabg Hyperlipidemia Mental health problem Father Hyperlipidemia Sarcoidosis Brother Mental health problem Son Bipolar 1 disorder Daughter Depression Son Anger Hypertension Maternal Grandfather Diabetes Maternal Grandmother Breast cancer Other COPD (chronic obstructive pulmonary disease) Social History Smoking/Tobacco Use Status: Current every day Tobacco Type: cigarettes Smoking risk assessment performed?: Yes Alcohol Intake: never Drug use: Occasionally Substance use type: former substance user, marijuana and crack/cocaine Details: edibles Household members: family Housing: house Number of Children: 3 current occupation: disabled What is your relationship status?: Panel score (0-1 are the most socially isolated patients): 0 What type of physical activity do you participate in: none Seatbelt use: sometimes Do you feel safe at home: Yes Do you feel safe in your relationship?: Yes
[2024-06-06] MEDS: Acetaminophen 500 MG TAB 1000 MG PO (11:40)
[2024-06-06] MEDS: Multivitamin w/Minerals TAB 1 TAB PO (11:41)
[2024-06-06] MEDS: Enoxaparin 40 MG/0.4 ML SYR SC ×2 (11:42→21:33)
[2024-06-06] MEDS: levETIRAcetam 500 MG TAB PO ×2 (11:42→20:43)
[2024-06-06] MEDS: Nicotine 4 MG GUM CH (11:42)
[2024-06-06] MEDS: Gabapentin 300 MG CAP PO ×3 (11:42→20:43)
[2024-06-06] MEDS: Normal Saline Flush 10 ML SYR IVP ×2 (11:43→20:41)
--- NOTE | 2024-06-06 13:07 | PHACLINREV_ITS ---
Pharmacy Admission Review Admission Clinical Review Admission Pharmacy Review: Cocaine abuse (Acute) Hypomagnesemia (Acute) Hypokalemia (Acute) Cellulitis of right arm (Acute) Sepsis (Acute) lamotrigine (From Lamictal) Allergy (Severe, Unverified 06/05/24 19:48) Hives erythromycin base Allergy (Unknown, Verified 06/05/24 19:48) Other (See Comment) transparent dressing Allergy (Unknown, Verified 06/05/24 19:48) Other (See Comment) adhesives Allergy (Mild, Uncoded 06/05/24 19:48) Hives Resuscitation Status Full Code Height 5 ft 5 in Weight 128.9 kg Pharmacy Admission Review Renal Dosing Renal Dosing: BUN 10 mg/dL (7-18) 06/06/24 06:45 Creatinine 0.9 mg/dL (0.55-1.02) 06/06/24 06:45 Medications needing adjustments: Reviewed (CrCl 114.67 mL/min, SCr decreased fro m 1.1) List of meds needing interventions: Current medications are okay Anticoagulation Anticoagulation: Hgb 11.3 g/dL (11.2-15.7) 06/06/24 06:45 Hct 35.0 % (36.0-46.0) L 06/06/24 06:45 Plt Count 273 10^3/uL (130-400) 06/06/24 06:45 INR 1.0 (0.9-1.1) 06/06/24 06:45 Creatinine 0.9 mg/dL (0.55-1.02) 06/06/24 06:45 DVT Prophylaxis: Intervened (changed from daily to q12h due to BMI > 40 (47.3)) Medications: Enoxaparin (40mg q12h) Relevant Labs Relevant Labs: ESR 29 mm/hr (0-20) H 06/05/24 20:22 Sodium 138 mmol/L (136-145) 06/06/24 06:45 Potassium 3.1 mmol/L (3.5-5.1) L 06/06/24 06:45 Chloride 102 mmol/L (98-107) 06/06/24 06:45 Magnesium 2.0 mg/dL (1.8-2.4) 06/06/24 06:45 C-Reactive Protein 11.63 mg/dL (<or=0.5) H 06/05/24 20:22 Electrolytes, C-Reactive P, ESR: Reviewed (Received IV potassium infusion this morning and ordered added for 40 mEq PO BID) Cardiac Review Cardiac Review: Troponin I Cancelled 06/05/24 22:49 NT-Pro-B Natriuret Pep 340 pg/mL (<300) H 06/05/24 20:22 Heart Rate 105 0753 06/06/24 103 0047 06/06/24 94 0015 06/06/24 95 0000 06/06/24 BP, HR, EF%: Reviewed (BP WNL) QTc Review QTc: Reviewed (444 from 06/05/24) IV to PO Switch IV Medications: Reviewed (cefepime, ketorolac and vancomycin) Home Meds Home Med List reviewed: Intervened Relevent Home Meds Not ordered & why?: Baclofen dose on home med list said 20mg daily but external fill history showed 10mg TID. Called nurse to verify, per nurse patient takes 10mg TID. Updated home med list and changed order. Provider aware. Omeprazole listed as 20mg daily on home med list but external fill history showed 40mg daily. Called nurse to verify, per nurse patient takes 40mg daily. Updated home med list. Provider aware. Suboxone dose on home med list said 2 films (16mg) once daily but external fill history showed 1 film (8mg) daily. Called nurse to verify, per nurse patient takes 1 film (8mg) daily. Updated home med list and changed order. Provider aware. Prazosin was listed twice on patients home med list. One said 1mg at bedtime and another said 2mg. Called nurse to verify, per nurse patient takes 2mg at bedtime. Updated home med list and changed order. Provider aware. Changed 2 orders to patients own (non-formulary). Asked nurse to see if these could be brought in for the patient. Waiting to hear back. Current Meds Current Medication Order Review: Reviewed Pharmacy Antibiotic Review Relevant Labs: Relevant Labs 06/05/24 20:22 C-Reactive Protein 11.63 H Procalcitonin 0.53 WBC 10.12 10^3/uL (4.4-10.8) 06/06/24 06:45 Procalcitonin 0.53 ng/mL 06/05/24 20:22 Temperature 37.7 C 0753 Pharmacy Antibiotic Activity: C/S review and Reviewed, no change Comments: Patient is on vancomycin and cefepime, day 1, for sepsis/cellulitis on right arm. Current vancomycin dose is 1250mg q12h with predicted AUC of 517 and trough of 14. Ordered level for today at 1600. Will adjust dose as needed based on level. WBC decreased from 14.42 and blood cultures pending.
[2024-06-06] MEDS: CEFEPIME 2 GM in Normal Saline 100 ML IVPB ×2 (14:34→23:58)
[2024-06-06] MEDS: Ketorolac 15 MG/ML VIAL IVP ×3 (14:36→23:58)
[2024-06-06] MEDS: cloNIDine 0.1 MG TAB PO (14:36)
[2024-06-06] MEDS: Baclofen 10 MG TAB PO ×2 (14:36→20:43)
[2024-06-06 17:12] LABS: Vancomycin, Random 9.9 ug/mL
[2024-06-06] MEDS: VANCOMYCIN 1,250 MG in Normal Saline 250 ML 167 MG IVPB (18:29)
[2024-06-06] MEDS: Potassium Chloride 20 MEQ TABCR 40 MEQ PO (20:42)
[2024-06-06] MEDS: traZODone 50 MG TAB 150 MG PO (20:43)
[2024-06-06] MEDS: Mirtazapine 15 MG TAB 30 MG PO (20:43)
[2024-06-06] MEDS: Prazosin 1 MG CAP 2 MG PO (20:44)
[2024-06-07] MEDS: Nicotine 4 MG GUM CH ×4 (00:04→17:34)
[2024-06-07 04:16] VITALS: BP 139/79; PULSE 123; RESP 20; TEMP 36.6; O2SAT 97
[2024-06-07] MEDS: POTASSIUM CHLORIDE/0.9% NACL 1,000 ML 125 MEQ IV (05:16)
[2024-06-07] MEDS: Ketorolac 15 MG/ML VIAL IVP (05:28)
[2024-06-07] MEDS: Normal Saline Flush 10 ML SYR IVP ×6 (05:29→20:03)
[2024-06-07] MEDS: VANCOMYCIN 1,250 MG in Normal Saline 250 ML 167 MG IVPB (05:29)
[2024-06-07 07:53] LABS: Abs Immature Grans 0.05 10^3/uL (0.0-0.06); Absolute Basophil Count 0.02 10^3/uL (0.0-0.2); Absolute Eosinophil Count 0.11 10^3/uL (0.0-0.7); Absolute Lymphocyte Count 1.34 10^3/uL (1.2-3.4); Absolute Monocyte Count 0.66 10^3/uL (0.1-0.8); Absolute Neutrophil Count 7.96 10^3/uL (1.2-6.7); Basophils % 0.2 %; Eosinophils % 1.1 %; HCT 31.8 % (36.0-46.0); HGB 10.1 g/dL (11.2-15.7); Immature Grans % 0.5 %; Lymphocytes % 13.2 %; MCH 30.9 pg (27.0-33.0); MCHC 31.8 % (32.0-36.0); MCV 97 fL (80-95); Monocytes % 6.5 %; Neutrophils % 78.5 %; RBC 3.27 10^6/uL (3.93-5.22); RDW 14.6 % (11.7-14.6); RDW-SD 52.3 fL; WBC 10.14 10^3/uL (4.4-10.8)
[2024-06-07 08:10] VITALS: BP 130/84; PULSE 118; RESP 20; TEMP 36.6; O2SAT 96
[2024-06-07 08:15] LABS: ALT 39 U/L (14-59); AST 67 U/L (15-37); Albumin 2.3 g/dL (3.4-5.0); Alkaline Phosphatase 72 U/L (46-116); Anion Gap 9.4 mmol/L (3-11); BUN 12 mg/dL (7-18); Bilirubin, Total 0.4 mg/dL (0.2-1.0); CO2 23.6 mmol/L (21.0-32.0); CREATININE 0.7 mg/dL (0.55-1.02); Calcium 7.6 mg/dL (8.5-10.1); Chloride 106 mmol/L (98-107); Estimated GFR 113.46 (mL/min/1.73m2); Glucose 95 mg/dL (74-106); Potassium 3.9 mmol/L (3.5-5.1); Sodium 139 mmol/L (136-145); Total Protein 5.6 g/dL (6.4-8.2)
[2024-06-07 08:20] LABS: Diff Comment PLT Morph Reviewed; RBC Morphology Normal
[2024-06-07] MEDS: Gabapentin 300 MG CAP PO ×3 (09:52→20:01)
[2024-06-07] MEDS: Multivitamin w/Minerals TAB 1 TAB PO (09:52)
[2024-06-07] MEDS: Baclofen 10 MG TAB PO ×3 (09:52→20:02)
[2024-06-07] MEDS: Potassium Chloride 20 MEQ TABCR 40 MEQ PO (09:52)
[2024-06-07] MEDS: Pantoprazole 40 MG TABCR PO (09:52)
[2024-06-07] MEDS: levETIRAcetam 500 MG TAB PO ×2 (09:52→20:02)
[2024-06-07] MEDS: CEFEPIME 2 GM in Normal Saline 100 ML IVPB ×2 (09:53→16:54)
[2024-06-07] MEDS: Enoxaparin 40 MG/0.4 ML SYR SC ×2 (11:34→21:38)
[2024-06-07] MEDS: VANCOMYCIN 1,500 MG in Normal Saline 250 ML 166.667 MG IVPB (13:41)
[2024-06-07 14:51] VITALS: BP 117/82; PULSE 111; RESP 20; TEMP 36.8; O2SAT 96
--- NOTE | 2024-06-07 17:58 | W.PM.PROGNOT ---
Date of Service Date of service: 06/07/24 Time of Service: 17:58 Assessment and Plan Assessment and plan (1) Sepsis: Status: Acute Assessment and plan: This is a 39-year-old lady with history of IV drug admitted with with right arm swelling and redness as well as blistering sepsis criteria with WBC of 14.42 and tachycardia at HR 95 but no endorgan dysfunction, lactemia or hypotension to qualify for severe sepsis blood cultures growing GPC in clusters this afternoon in 1 bottle only the other is pending Urine culture still pending Continue IV cefepime and vancomycin follow-up on cultures Urine drug screen was positive for cocaine and she may be reusing IV drugs with total drug screen pending and patient chronically take-home Suboxone. Continue IV antibiotic therapy and wound care as needed with adjustment of antibiotic therapy depending on patient's response clinically and by culture. Continue IV hydration. She is a full code. (2) Gram-positive bacteremia: Status: Acute Assessment and plan: As above Blood cultures reordered Poor IV access- Midline consult ordered (3) Cellulitis of right arm: Start date: 06/06/24 Status: Acute Assessment and plan: Right arm swelling for 4 days with patient not admitting to IV drug use or lesions to initiate this process. Continue to adjust antibiotic therapy according to cultures and clinical response. (4) Cocaine abuse: Start date: 06/06/24 Status: Acute Assessment and plan: USD postive for cocaine- HR 105 this AM Clonidine PRN (5) Hypokalemia: Start date: 06/05/24 Status: Acute Assessment and plan: K 3.1 - oral replacement ordered BMP in AM (6) Hypomagnesemia: Start date: 06/05/24 Status: Acute Assessment and plan: Resolved Mag in AM (7) Asthma: Status: Chronic Assessment and plan: Continue outpatient medical therapy. (8) Drug use disorder: Status: Chronic Assessment and plan: Patient does have positive cocaine PRN clonidine (9) Opioid dependence: Assessment and plan: Continue Suboxone. (10) Hepatitis C: Assessment and plan: Patient is has been treated and cleared to go on her problem list is states that she has a chronic hep C carrier. Follow-up with PCP. (11) Depression with anxiety: Assessment and plan: Continue outpatient medical management - hold off benzodiazepines while on narcotic therapy w positive urine drug screen (12) PTSD (post-traumatic stress disorder): Assessment and plan: On home dosing of prazosin (13) Migraine: Status: Chronic Assessment and plan: Neurology initiated depakote -not listed - not taking APAP schedule (14) Seizure: Assessment and plan: Continue outpatient medical therapy with keppra. (15) On deep vein thrombosis (DVT) prophylaxis: Status: Acute Assessment and plan: ON LMWH Discussed with Subjective Subjective Patient reports: no new complaints Exam Narrative Exam Narrative: Obese female chronically ill older appearing than stated age head is atraumatic eyes nonicteric noninjected oral mucosa is moist neck full range of motion cardiovascular regular rate and rhythm respirations even and unlabored right upper extremity with forearm swelling redness pain extending into the upper arm. Hand swollen as well. Able to range wrist and elbow freely. Dorsal aspect of hands with blisters and weeping. Objective Last Vital Signs Temp 36.8 C 06/07/24 14:51 Pulse 111 H 06/07/24 14:51 Resp 20 06/07/24 14:51 BP 117/82 06/07/24 14:51 Pulse Ox 96 06/07/24 14:51 Laboratory Results - last 24 hr 06/07/24 06:45 WBC 10.14 RBC 3.27 L Hgb 10.1 L Hct 31.8 L MCV 97 H MCH 30.9 MCHC 31.8 L RDW 14.6 Plt Count MPV Immature Gran % 0.5 Neutrophils % 78.5 Lymphocytes % 13.2 Monocytes % 6.5 Eosinophils % 1.1 Basophils % 0.2 Nucleated RBC % 0.0 Absolute Neutrophils 7.96 H Absolute Lymphocytes 1.34 Absolute Monocytes 0.66 Absolute Eosinophils 0.11 Absolute Basophils 0.02 RBC Morphology Normal Sodium 139 Potassium 3.9 Chloride 106 Carbon Dioxide 23.6 Anion Gap 9.4 BUN 12 Creatinine 0.7 Est GFR (CKD-EPI 2020) 113.46 Glucose 95 Calcium 7.6 L Magnesium 2.0 Total Bilirubin 0.4 AST 67 H ALT 39 Alkaline Phosphatase 72 Total Protein 5.6 L Albumin 2.3 L Time Spent with Patient Time Spent with Patient: 35-49 minutes Time was spent: preparing to see the patient(eg.review tests), obtaining and/or reviewing separately otained hiistory, ordering medications,tests, procedures, indepentently interpreting results and counseling the patient
[2024-06-07 19:37] VITALS: BP 147/76; PULSE 120; RESP 20; TEMP 36.7; O2SAT 94
[2024-06-07] MEDS: traZODone 50 MG TAB 200 MG PO (20:00)
[2024-06-07] MEDS: Prazosin 1 MG CAP 2 MG PO (20:01)
[2024-06-07] MEDS: Mirtazapine 15 MG TAB 30 MG PO (20:01)
[2024-06-07] MEDS: VANCOMYCIN 1,500 MG in Normal Saline 250 ML 167 MG IVPB (20:02)
[2024-06-07 23:40] VITALS: BP 127/75; PULSE 101; RESP 20; TEMP 36.9; O2SAT 92
[2024-06-08] MEDS: CEFEPIME 2 GM in Normal Saline 100 ML IVPB ×4 (00:07→23:56)
[2024-06-08] MEDS: Normal Saline Flush 10 ML SYR IVP ×5 (00:08→23:56)
--- NOTE | 2024-06-08 01:41 | NUR.NOTE ---
Nursing Note: Unable to draw blood for Vanco Through at midnight thru midline and attempted also to obtained by peripheral veins x 5 with medical laboratory technicians, no success! Provider notified and recommended to call pharmacy for any suggestions. This assembly instructions writer spoke to pharmacist and he said to go ahead and give the Vancomycin dose at 04:00 and he will re time next Vanco T to 10:30 today. And will pass on to day shift if they can try to draw blood again on day shift..
[2024-06-08 03:33] VITALS: BP 113/62; PULSE 96; TEMP 36.4; O2SAT 96
[2024-06-08] MEDS: VANCOMYCIN 1,500 MG in Normal Saline 250 ML 167 MG IVPB ×2 (03:50→11:42)
[2024-06-08 06:42] LABS: HCT 31.6 % (36.0-46.0); MCH 30.6 pg (27.0-33.0); MCHC 31.6 % (32.0-36.0); MCV 97 fL (80-95); MPV 9.1 fL (8.0-11.0); Platelet Count 254 10^3/uL (130-400); RBC 3.27 10^6/uL (3.93-5.22); RDW 14.5 % (11.7-14.6); RDW-SD 51.4 fL; WBC 6.39 10^3/uL (4.4-10.8)
[2024-06-08 07:02] LABS: ALT 41 U/L (14-59); AST 42 U/L (15-37); Albumin 2.2 g/dL (3.4-5.0); Alkaline Phosphatase 75 U/L (46-116); Anion Gap 10.5 mmol/L (3-11); BUN 8 mg/dL (7-18); Bilirubin, Total 0.4 mg/dL (0.2-1.0); CO2 23.5 mmol/L (21.0-32.0); CREATININE 0.8 mg/dL (0.55-1.02); Calcium 7.9 mg/dL (8.5-10.1); Chloride 107 mmol/L (98-107); Estimated GFR 96.66 (mL/min/1.73m2); Glucose 130 mg/dL (74-106); Magnesium 1.9 mg/dL (1.8-2.4); Potassium 3.7 mmol/L (3.5-5.1); Sodium 141 mmol/L (136-145); Total Protein 5.9 g/dL (6.4-8.2)
[2024-06-08] MEDS: Gabapentin 300 MG CAP PO ×3 (07:33→19:48)
[2024-06-08] MEDS: Multivitamin w/Minerals TAB 1 TAB PO (07:33)
[2024-06-08] MEDS: levETIRAcetam 500 MG TAB PO ×2 (07:34→19:48)
[2024-06-08] MEDS: Pantoprazole 40 MG TABCR PO (07:34)
[2024-06-08] MEDS: Baclofen 10 MG TAB PO ×3 (07:34→19:49)
[2024-06-08 07:45] VITALS: BP 120/83; PULSE 100; RESP 16; TEMP 36.2; O2SAT 96
--- NOTE | 2024-06-08 09:27 | CMPROGNOTE_ITS ---
Date of service: 06/08/24 Time of Service: 09:27 Care Management Progress Note Progress Note Text Progress Note Text: Inna was sitting up in bed, at the time CM arrived. Per Inna, she does not feel very well, her skin is hurting her and states she cannot tell if her skin is healing. Inna showed CM the blisters on her arm, which have popped, and are painful. Per Inna, her dad and grandmother are good supports for her and assist her with transportation when needed. Inna explained that she is having trouble sleeping here and would rather be home. She is hopeful to go home soon. Discharge Potential Discharge Needs: PCP F/U Appt Anticipated Barriers to Discharge: None Identified Patient/Family Education Needs: Review discharge instructions, discuss Ask Me Three Transportation: Private vehicle (Mother or grandmother will transport) Plan: Anticipate Inna will return home once medically ready cleared. She will transport via private vehicly by a family member. She will follow up with her community provider and discharge plan of care. CM will continue to follow. Social Determinants of Health Screening Social Determinants of health last assessed in clinic: 06/08/24 Will the Patient Participate in the Screening?: Yes Do you worry about having a steady place to live?: no Problems where you live: other In the past 12 months, have you had to go without electric, gas, oil or water in your home?: no 1. Within the past 12 months, we worried whether our food would run out before we got money to buy more.: Never true 2. Within the past 12 months, the food we bought just didn't last and we didn't have money to get more.: Never true Has lack of transportation kept you from medical appointments or from doing things needed for daily living?: no Has anyone in your life made you feel unsafe or unsupported?: no How hard is it for you to pay for the very basics like food, housing, medical care, and heating? Would you say it is:: Not hard at all Do you want help finding or keeping work or a job?: I do not need or want help If for any reason you need help with day-to-day activities such as bathing, preparing meals, shopping, managing finances, etc., do you get the help you need?: I don?t need any help How often do you feel lonely or isolated from those around you?: Always Do you speak a language other than Montenegrin at home?: No Health Related Social Needs Health related social needs: inadequate housing (Z59.1) and feeling lonely/ isolated (Z60.8)
[2024-06-08] MEDS: Enoxaparin 40 MG/0.4 ML SYR SC ×2 (10:41→22:22)
[2024-06-08] MEDS: Acetaminophen 500 MG TAB 1000 MG PO (10:43)
[2024-06-08 11:20] VITALS: BP 123/75; PULSE 111; RESP 16; TEMP 36.7; O2SAT 96
[2024-06-08 11:27] LABS: Fentanyl Scr w/Rfx Confirm Negative ng/mL (<1)
--- NOTE | 2024-06-08 13:03 | W.PM.PROGNOT ---
Date of Service Date of service: 06/08/24 Time of Service: 13:03 Assessment and Plan Assessment and plan (1) Sepsis: Status: Acute Assessment and plan: resolved, d/t right arm cellulitis Continue IV cefepime and discontinue vancomycin as prelim cultures growing staph not aureus (2) Gram-positive bacteremia: Status: Acute Assessment and plan: As above Blood cultures repeat pending Midline intact and infusing well, doesn't withdraw (3) Cellulitis of right arm: Status: Acute Assessment and plan: as above (4) Cocaine abuse: Status: Acute Assessment and plan: USD postive for cocaine- Clonidine PRN (5) Hypokalemia: Status: Resolved Assessment and plan: repleted (6) Hypomagnesemia: Status: Resolved Assessment and plan: Resolved (7) Asthma: Status: Chronic Assessment and plan: stable, no symptoms Continue outpatient medical therapy. (8) Drug use disorder: Status: Chronic Assessment and plan: Patient does have positive cocaine PRN clonidine (9) Opioid dependence: Assessment and plan: Continue Suboxone. (10) Hepatitis C: Assessment and plan: Patient is has been treated and cleared to go on her problem list is states that she has a chronic hep C carrier. Follow-up with PCP. (11) Depression with anxiety: Assessment and plan: Continue outpatient medical management - hold off benzodiazepines while on narcotic therapy w positive urine drug screen (12) PTSD (post-traumatic stress disorder): Assessment and plan: On home dosing of prazosin (13) Migraine: Status: Chronic Assessment and plan: Neurology initiated depakote -not listed - not taking APAP schedule (14) Seizure: Assessment and plan: Continue outpatient medical therapy with brittani. (15) On deep vein thrombosis (DVT) prophylaxis: Status: Acute Assessment and plan: ON LMWH Discussed with Subjective Subjective Patient reports: no new complaints, feels better, tolerating liquids well, tolerating a regular diet and afebrile; denies shortness of breath Exam Narrative Exam Narrative: Obese female chronically ill older appearing than stated age head is atraumatic eyes nonicteric noninjected oral mucosa is moist neck full range of motion cardiovascular regular rate and rhythm respirations even and unlabored right upper extremity with forearm swelling redness pain extending into the upper arm. Hand swollen as well. Able to range wrist and elbow freely. Dorsal aspect of hands with blisters and weeping. Objective Last Vital Signs Temp 36.7 C 06/08/24 11:20 Pulse 111 H 06/08/24 11:20 Resp 16 06/08/24 11:20 BP 123/75 06/08/24 11:20 Pulse Ox 96 06/08/24 11:20 Laboratory Results - last 24 hr 06/06/24 06/08/24 06/08/24 06:25 00:00 06:24 WBC 6.39 RBC 3.27 L Hgb 10.0 L Hct 31.6 L MCV 97 H MCH 30.6 MCHC 31.6 L RDW 14.5 Plt Count 254 MPV 9.1 Sodium 141 Potassium 3.7 Chloride 107 Carbon Dioxide 23.5 Anion Gap 10.5 BUN 8 Creatinine 0.8 Est GFR (CKD-EPI 2020) 96.66 Glucose 130 H Calcium 7.9 L Magnesium 1.9 Total Bilirubin 0.4 AST 42 H ALT 41 Alkaline Phosphatase 75 Total Protein 5.9 L Albumin 2.2 L Random Vancomycin Cancelled Urine Fentanyl Screen Negative Time Spent with Patient Time Spent with Patient: 35-49 minutes Time was spent: preparing to see the patient(eg.review tests), obtaining and/or reviewing separately otained hiistory, ordering medications,tests, procedures, indepentently interpreting results and counseling the patient
[2024-06-08 13:25] LABS: Vancomycin, Trough 42.9 ug/mL (10.0-20.0)
[2024-06-08 15:22] VITALS: BP 113/74; PULSE 99; RESP 16; TEMP 35.7; O2SAT 94
[2024-06-08 16:57] LABS: Oxycodone Screen, U Negative ng/mL (Cutoff: 100)
[2024-06-08 19:32] VITALS: BP 128/82; PULSE 103; RESP 16; TEMP 36.8; O2SAT 100
[2024-06-08] MEDS: traZODone 50 MG TAB 200 MG PO (19:47)
[2024-06-08] MEDS: Prazosin 1 MG CAP 2 MG PO (19:48)
[2024-06-08] MEDS: Mirtazapine 15 MG TAB 30 MG PO (19:49)
[2024-06-08 23:49] VITALS: BP 115/64; PULSE 99; RESP 18; TEMP 36; O2SAT 95
[2024-06-09] MEDS: Normal Saline 500 ML IV
[2024-06-09 03:37] VITALS: BP 112/66; PULSE 97; RESP 14; TEMP 36.6; O2SAT 94
[2024-06-09 07:39] VITALS: BP 124/84; PULSE 98; RESP 17; TEMP 36.6; O2SAT 95
[2024-06-09] MEDS: levETIRAcetam 500 MG TAB PO (08:10)
[2024-06-09] MEDS: Baclofen 10 MG TAB PO (08:10)
[2024-06-09] MEDS: Docusate Sodium 100 MG CAP PO (08:10)
[2024-06-09] MEDS: Gabapentin 300 MG CAP PO (08:10)
[2024-06-09] MEDS: Pantoprazole 40 MG TABCR PO (08:10)
[2024-06-09] MEDS: CEFEPIME 2 GM in Normal Saline 100 ML IVPB (08:11)
[2024-06-09] MEDS: Normal Saline Flush 10 ML SYR IVP (08:12)
[2024-06-09] MEDS: Enoxaparin 40 MG/0.4 ML SYR SC (09:53)
[2024-06-09] MEDS: Multivitamin w/Minerals TAB 1 TAB PO (09:54)
[2024-06-09] MEDS: DEXTROSE 5%-WATER 100 ML 50 ML IV (11:48)
[2024-06-09] MEDS: DALBAVANCIN 1,500 MG in DEXTROSE 5%-WATER 325 ML 650 MG IVPB (11:48)
--- NOTE | 2024-06-09 11:59 | CMDISCH_ITS ---
Date of service: 06/09/24 Time of Service: 12:00 LACE Index Scoring Tool Questions: Length of Stay (in days): 4 - 6 Was the patient admitted via the E.D.?: Yes Comorbidities: Chronic Pulmonary Disease E.D. Visits: 1 Answers: Total Score: 10 Risk of Readmission: High Risk Care Management Discharge Plan Reason for Hospitalization: Sepsis, Cellulitis right arm, Drug use disorder Discharge Plan: Inna will return home today with no new service and will transport via private vehicle by her grandmother. She will follow up with her community provider and discharge plan of care. Patient/Family Education Needs: Review discharge instructions and limitations, discuss Ask Me Three SDOH Health Related Social Needs: Health related social needs inadequate housing (Z59.1) , feeling lonely/isolated (Z60.8)
--- NOTE | 2024-06-09 12:00 | W.PM.DS.N ---
Date of service: 06/09/24 Time of Service: 12:01 DS: Diagnosis Discharge Diagnosis (1) Sepsis: Status: Acute (2) Gram-positive bacteremia: Status: Acute (3) Cellulitis of right arm: Status: Acute (4) Cocaine abuse: Status: Acute (5) Hypokalemia: Status: Resolved (6) Hypomagnesemia: Status: Resolved (7) Asthma: Status: Chronic (8) Drug use disorder: Status: Chronic (9) Migraine: Status: Chronic Discharge Plan Disposition Patient Disposition: Home Condition: Improving Discharge Details Reason For Visit: Sepsis, Cellulitis right arm, Drug use disorder Admit Date/Time: 06/05/24 23:52 Admit Provider: Hernandez Cary Attending Provider: Hernandez Cary [facility] Hospital Course: This is a 39-year-old lady with history of IV drug use now presenting with right arm swelling and redness as well as blistering meet sepsis criteria but no endorgan dysfunction or hypotension. She initiated on cefepime and vancomycin after blood cultures and urine culture obtained. her cultures grew staph hommis, not aureus. Her symptoms slowly improving and vancomycin discontinued. she remained hemodynamically stable and afebrile. repeat blood cultures negative to date after 72 hours. Potassium 2.8 repleted while hospitalized normalized to 3.7. she is eating and drinking and bowels and bladder functioning. she is requesting discharge to home. she will be given one single dose of dalbavancin and discharged on 10 days of cephalexin to complete her course. she was advised to follow up with pcp or return sooner for new or worsening symptoms discussed with DR Diaz Foster Meds and New Rx's Prescriptions: New cephalexin 500 mg capsule 500 mg PO QID Qty: 40 0RF Continued tiotropium bromide [Spiriva with HandiHaler] 18 mcg capsule, w/inhalation device 1 cap inhalation DAILY Rx Instructions: puncture 1 cap using device; one dose = 2 inhalations albuterol sulfate [Ventolin HFA] 90 mcg/actuation Hfa Aerosol Inhaler 2 puff INHALATION Q6H PRN PRN (DME) nebulizer and compressor Device See Rx Instructions .ROUTE .MEDSUPPLY Qty: 1 0RF Rx Instructions: As directed multivitamin Tablet 1 tab PO DAILY trazodone 50 mg tablet 50 mg PO .Q 24 hrs tizanidine 4 mg tablet 4 mg PO DAILY trazodone 150 mg tablet 150 mg PO .bedtime Vraylar 3 mg capsule 3 mg PO DAILY mirtazapine 30 mg tablet 30 mg PO .bedtime prazosin 2 mg capsule 2 mg PO .bedtime nicotine (polacrilex) 4 mg gum 4 mg buccal Q1H gabapentin 300 mg capsule 300 mg PO TID Patient Comments: TAKE ONE CAPSULE BY MOUTH THREE TIMES A DAY One-A-Day Women's Complete 18 mg iron- 400 mcg tablet 1 tab PO DAILY levetiracetam 500 mg tablet 500 mg PO BID buprenorphine-naloxone 8-2 mg tablet, sublingual 1 tab SUBLINGUAL DAILY Patient Comments: PLACE ONE TABLET UNDER THE TONGUE EVERY DAY baclofen 10 mg tablet 10 mg PO TID Patient Comments: TAKE ONE TABLET BY MOUTH THREE TIMES A DAY omeprazole 40 mg capsule,delayed release(DR/EC) 40 mg PO DAILY Patient Comments: TAKE ONE CAPSULE BY MOUTH EVERY DAY Discharge Instructions Instructions: Cellulitis (skin infection) in adults - Discharge instructions Additional Instructions: keep arm elevated above the level of your heart as much as possible during the day take antibiotics as prescribed even if you feel better report worsening symptoms immediately work with your doctors office for better blood sugar control, see wet milling wheel operator. Stand Alone Forms: Nursing Discharge Form Referrals: [facility] [Provider Group] - 06/17/24 9:40 am Anita Awda [Primary Care Provider] - Activity:: Activity as Tolerated Equipment/Supplies:: No Equipment Needed Diet:: Carb Counting Discharge Orders Discharge Orders: Discharge Order (Routine); Ordered 06/09/24 Ordered By: Gracie Martinez Discharge Data Discharge Date/Time-TO BE ENTERED AT DEPARTURE: 06/09/24 12:56 DS: Summary Time Spent with Patient providing and/or coordinating discharge services: Greater than 30 minutes Status at Discharge Functional status at discharge: independent ambulation Overall status at discharge: patient is progressing back to baseline Mental Status: mental status grossly normal Speech and Movement: speech and movement normal Mood: congruent mood Affect: normal affect Quality:SDOH Health Related Social Needs: Health related social needs inadequate housing (Z59.1), feeling lonely/isolated (Z60.8) Exam Narrative Exam Narrative: Obese female chronically ill older appearing than stated age head is atraumatic eyes nonicteric noninjected oral mucosa is moist neck full range of motion cardiovascular regular rate and rhythm respirations even and unlabored right upper extremity with forearm swelling redness pain extending into the upper arm improving over the past 2 days. Hand swelling improved. Able to range wrist and elbow freely. Dorsal aspect of hands with blisters and some ongoing weeping. Psych Mental Status: mental status grossly normal Speech and Movement: speech and movement normal Mood: congruent mood Affect: normal affect DS: Data Vitals/I&O Vitals and I&O: Vital Signs Temperature 36.6 C 06/09/24 07:39 Temperature Source Temporal Artery Scan 06/09/24 07:39 Pulse 98 H 06/09/24 07:39 Respiratory Rate 17 06/09/24 07:39 Respiratory Effort Normal, Non-Labored 06/06/24 02:11 Respiratory Pattern Normal 06/06/24 00:47 Blood Pressure 124/84 06/09/24 07:39 Blood Pressure Mean 97 06/09/24 07:39 Blood Pressure Position Sitting 06/05/24 19:40 Pulse Oximetry 95 06/09/24 07:39 Oxygen Delivery Method Room Air 06/09/24 07:39 Oxygen Flow Rate 0 06/09/24 07:39 Pain Level 0 06/08/24 15:22 Comment rn notified 06/09/24 07:39 Intake & Output 06/08/24 06/09/24 06/09/24 23:59 11:59 23:59 Intake Total 870 / 1320 300.000 / 300.000 Balance 870 / 1320 300.000 / 300.000 Weight 134.4 kg Intake: IV 370 / 820 300.000 / 300.000 Oral 500 / 500 Other: Comment pt states they have been voiding independently, no issues reported pt voided independently Data Completed and Pending Labs on day of discharge: Labs from last 24 hours 06/09/24 05:35: WBC Pending, RBC Pending, Hgb Pending, Hct Pending, MCV Pending, MCH Pending, MCHC Pending, RDW Pending, Plt Count Pending, MPV Pending, Immature Gran % Pending, Neutrophils % Pending, Lymphocytes % Pending, Monocytes % Pending, Eosinophils % Pending, Basophils % Pending, Absolute Neutrophils Pending, Absolute Lymphocytes Pending, Absolute Monocytes Pending, Absolute Eosinophils Pending, Absolute Basophils Pending, Sodium Pending, Potassium Pending, Chloride Pending, Carbon Dioxide Pending, Anion Gap Pending, BUN Pending, Creatinine Pending, Est GFR (CKD-EPI 2020) Pending, Glucose Pending, Calcium Pending, Total Bilirubin Pending, AST Pending, ALT Pending, Alkaline Phosphatase Pending, C-Reactive Protein Pending, Total Protein Pending, Albumin Pending 06/08/24 12:35: Vancomycin Trough 42.9 H* 06/06/24 06:25: Ur Oxycodone Screen Negative Preliminary micro results at discharge 06/05/24 21:05 Blood Blood Culture - Preliminary Staph hominis ssp hominis 06/05/24 20:22 Blood Blood Culture - Preliminary NO GROWTH 72 HOURS 06/06/24 17:12 Blood Blood Culture - Preliminary NO GROWTH 48 HOURS 06/06/24 17:05 Blood Blood Culture - Preliminary NO GROWTH 48 HOURS PFSH All Active Problems (Updated 06/08/24 @ 15:54 by Gracie Martinez NP) On deep vein thrombosis (DVT) prophylaxis (Acute) Gram-positive bacteremia (Acute) Migraine (Chronic) Cocaine abuse (Acute) Drug use disorder (Chronic) Cellulitis of right arm (Acute) Sepsis (Acute) Migraine with aura and without status migrainosus, not intractable (Acute) Migraine without aura, not intractable, without status migrainosus (Acute) Hidradenitis (Acute) Tachycardia (Acute) Hx of traumatic brain injury (Acute) Asthma (Chronic) Dyspepsia (Acute) Prediabetes (Acute) Chronic pain (Chronic) Obesity (Chronic) Hyperlipidemia (Chronic) Hx of opioid abuse (Acute) History of narcotic addiction (Acute) Bipolar 2 disorder (Acute) Tubal (Acute) was removed. S/P right knee arthroscopy (Acute) H/O removal of cyst (Acute) COPD (chronic obstructive pulmonary disease) (Acute) Medical History (Updated 06/08/24 @ 15:54 by Gracie Martinez NP) Seizure History of traumatic head injury Fatigue Opioid dependence History of prediabetes Mild persistent asthma Multiple joint pain Viral hepatitis C carrier Anxiety Pain, joint, knee, right Cramp in lower extremity associated with sleep Hx of eczema Cannabis abuse Nonulcer dyspepsia Pain of left lower extremity Pain in left arm Localized edema Pain in thoracic spine Insomnia due to other mental disorder Herpes virus disease Lymphedema History of psychiatric disorder Hx of chronic obstructive lung disease Diarrhea Neuropathy Aneurysmal bone cyst Hepatitis C Depression with anxiety Eczema Marijuana use Smoker Cervical dysplasia Suppurative hidradenitis Chronic pain of left lower extremity Back pain Insomnia ADHD Glaucoma Dysuria Nocturnal leg cramps Peripheral neuropathy Headache Seizure after head injury H/O traumatic brain injury Sinusitis Hyperkalemia Lower extremity surgery planned ADD (attention deficit disorder) Bipolar 1 disorder PTSD (post-traumatic stress disorder) Surgical History H/O right knee surgery Family History Mother Heart disease cabg Hyperlipidemia Mental health problem Father Hyperlipidemia Sarcoidosis Brother Mental health problem Son Bipolar 1 disorder Daughter Depression Son Anger Hypertension Maternal Grandfather Diabetes Maternal Grandmother Breast cancer Other COPD (chronic obstructive pulmonary disease) Social History Smoking/Tobacco Use Status: Current every day Tobacco Type: cigarettes Smoking risk assessment performed?: Yes Alcohol Intake: never Drug use: Occasionally Substance use type: former substance user, marijuana and crack/cocaine Details: edibles Household members: family Housing: house Number of Children: 3 current occupation: disabled What is your relationship status?: Panel score (0-1 are the most socially isolated patients): 0 What type of physical activity do you participate in: none Seatbelt use: sometimes Do you feel safe at home: Yes Do you feel safe in your relationship?: Yes Time Spent with Patient Time Spent with Patient: 70-84 minutes4 Time was spent: preparing to see the patient(eg.review tests), obtaining and/or reviewing separately otained hiistory, ordering medications,tests, procedures, indepentently interpreting results and counseling the patient
--- NOTE | 2024-06-09 12:15 | CHAPLAIN ---
Inna was resting in bed when I visited, and watching TV. She was pleasant and engaged in a conversation. She told me she's from [place] now, grew up in [place] and has family in [place]. She has a cat at home that she is missing and the cat is misbehaving will she is here. Inna said someone else lives with her (a grandmother according to Care Management notes) and is taking care of the cat. I explained my role and offered support, and will continue to visit.
[2024-06-10 12:50] LABS: Xylazine, Confirmation Urine Negative ng/mL (<50)
[2024-06-11 08:10] LABS: Norbuprenorphine 2052.4 ng/mL (Cutoff: 2.5)
== END 2024-06-09 12:56 | disposition home or self-care (01) | DRG 872 ==
LOC: ER 22:52 → MS 06-06 00:28
PROVIDERS: Emergency Medicine Emergency Medical Services; Nurse Practitioner Acute Care; Admitting Provider Family Medicine; Emergency Provider Physician Assistant; PCP Nurse Practitioner Family; Responsible Provider Nurse Practitioner Acute Care; Visit Provider Family Medicine
DX: A41.9 Sepsis, unspecified organism (principal); L03.113 Cellulitis of right upper limb; F11.20 Opioid dependence, uncomplicated; M48.56XA Collapsed vertebra, not elsewhere classified, lumbar region, initial encounter for fracture; F31.81 Bipolar II disorder; Z68.42 Body mass index [BMI] 45.0-49.9, adult; E83.42 Hypomagnesemia; E87.6 Hypokalemia; J45.40 Moderate persistent asthma, uncomplicated; B18.2 Chronic viral hepatitis C; F43.10 Post-traumatic stress disorder, unspecified; F41.8 Other specified anxiety disorders; F14.10 Cocaine abuse, uncomplicated; Z79.899 Other long term (current) drug therapy; J44.9 Chronic obstructive pulmonary disease, unspecified; R10.32 Left lower quadrant pain; E66.01 Morbid (severe) obesity due to excess calories; F12.10 Cannabis abuse, uncomplicated; R60.0 Localized edema; F17.210 Nicotine dependence, cigarettes, uncomplicated; G89.29 Other chronic pain; Z87.820 Personal history of traumatic brain injury; F90.9 Attention-deficit hyperactivity disorder, unspecified type; G40.909 Epilepsy, unspecified, not intractable, without status epilepticus; G43.009 Migraine without aura, not intractable, without status migrainosus; R73.03 Prediabetes; E78.5 Hyperlipidemia, unspecified; G62.9 Polyneuropathy, unspecified
CPT/HCPCS: 36410; 00123; 36415; 51702; 80053; 80307; 80348; 80375; 82805; 83690; 84145; 85027; 85652; 87040; 87077; 87637; 93005; 94640; 96365; 96367; 96368; 99285; J1650; 71046; 74176; 80202; 81003; 81015; 83605; 83735; 83880; 84443; 84484; 85025; 85610; 86140; 87186; 93010; 94664; 99223; 99233; 99239; J0131; J0692; J0875; J1885; J3370; J3475; J3480

== ENCOUNTER 2024-12-09 11:25 | Observation (INO) | payer MEDICARE, MEDICAID, SELFPAY ==
[2024-12-09] VITALS (25 sets, daily range): BP systolic 112–132; BP diastolic 40–71; PULSE 89–124; RESP 16–20; TEMP 35.9–37.3; O2SAT 91–97
--- NOTE | 2024-12-09 11:45 | RT.EKG_ITS ---
APPROVED REPORT Exam: Resting ECG Reason for Exam: Swelling Patient Location: E HR:115 bpm ECG Measurements Heart Rate 115 AXIS VA 120 P 44 QRSd 76 QRS 71 QT 339 T -2 QTc 470 Conclusion Sinus tachycardia...rate> 99 Low voltage, precordial leads...precordial leads <1.0mV Borderline T abnormalities, diffuse leads...T flat/neg No Occlusion DC
--- NOTE | 2024-12-09 12:02 | W.ED.GENAD ---
Discharge Plan Disposition Patient Disposition: Admit to [facility] Discharge Details Clinical Impression: Bilateral lower extremity edema, Abnormal weight gain, Tachycardia Admit Date/Time: 12/09/24 16:30 Admit Provider: Chai Muhammad Attending Provider: Chai Muhammad Primary Care Provider: Bhavya Diamond ED Provider: Joseph Segura Discharge Data Discharge Date/Time-TO BE ENTERED AT DEPARTURE: 12/09/24 17:54 HPI General Date/Time Provider Initiated Documentation: 12/09/24 11:52. HPI Narrative: MDM This is an uncomfortable initially tachycardic female with bilateral lower extremity swelling concerning for new onset heart failure. COVID influenza RSV all negative. Reassuring normal lactate. Chest x-ray with no acute cardiopulmonary process. CBC with no anemia or thrombocytopenia nor leukocytosis. Venous blood gas lacks acidemia and hypercarbia. She has a history of COPD but is not bringing up more sputum nor she have any significant wheezes nonetheless given history of COPD will cover with steroids and add doxycycline. Given her shortness of breath and her borderline she would benefit from updated echocardiogram. I covered her for sepsis. She has no pain out of proportion to suggest necrotizing soft tissue infection. Given no B-lines on ultrasound I treated her with 500 cc of crystalloid. 3:07 PM Reassuring normal magnesium. No patient has 2 reassuring normal troponins. Very mildly elevated proBNP. Comprehensive metabolic panel with no JOSI. Please see procedure note concerning right chest wall/axillary abscess which was drained at bedside. No acute electrolyte abnormalities. She was able to ambulate in the ED. Given her lower extremity swelling and her history of COPD she certainly could have a component of pulmonary hypertension. Will reach out to hospitalist with request for hospitalization. Patient will likely benefit from echocardiogram. In setting of her tachycardia we will give her 500 cc crystalloid bolus. 12/10 Late charting due to patient care. Patient hospitalized by Dr. Muhammad. Diagnostic interpretations performed by me: Per my independent interpretation chest x-ray shows: No acute cardiopulmonary process. Per my independent interpretation EKG shows: ECG showing sinus tachycardia rate of 115. Normal axis. Intervals within normal limits. Inferior T wave inversions. No acute injury pattern.. Similar to prior dated last year. HPI This is a 39-year-old female with remote history of IV drug use 4 to 5 years ago arrived to the emergency department in the setting of 3 days worth of lower extremity swelling and unintentional 15 pound weight gain over the past 2 weeks. Patient does have a history of reactive airway disease although she denies any increased cough or sputum production. She feels short of breath. She denies chest pain dysuria frequency abdominal pain nausea or vomiting. She does note that she has had some red bumps on her sides bilaterally and in her right axilla. Exam General: Uncomfortable-appearing in no acute distress speaking in complete sentences. Head: Normocephalic, atraumatic. Eye: Extraocular eye movements intact. No conjunctival injection. No scleral icterus. Ear, nose, mouth, throat: Grossly normal inspection. Normal voice, handling secretions normally. Neck: Trachea midline. Cardiovascular: Well-perfused distal extremities. Distant heart sounds. Respiratory: Nonlabored respiration. Transmitted upper airway sounds. Gastrointestinal: Nondistended abdomen. Soft. Nontender. On the left flank there is a small erythematous nonfluctuant approximately 1 x 1 cm area. There is a similar lesion on the right flank. Musculoskeletal: Bilateral 1+ lower extremity pitting edema. Moving all 4 extremities spontaneously. Skin: Between the right axilla and the right breast there is a fluctuant approximately 1 x 1 cm erythematous area. Please see procedure note concerning incision and drainage. Neurologic: Alert and appropriate, no apparent acute deficits. Related Data Home Medications Medication Instructions Recorded Confirmed albuterol sulfate 90 mcg/actuation 2 puff inhalation Q6H PRN PRN 12/05/18 12/09/24 aerosol inhaler (Ventolin HFA) nebulizer and compressor #1 ea 07/29/20 12/09/24 tiotropium bromide 18 mcg capsule 1 cap inhalation DAILY 04/18/23 12/09/24 with inhalation device (Spiriva with HandiHaler) buprenorphine 8 mg-naloxone 2 mg 1 tab sublingual DAILY 06/05/24 12/09/24 sublingual tablet cariprazine 3 mg capsule (Vraylar) 3 mg PO DAILY 06/05/24 12/09/24 gabapentin 300 mg capsule 300 mg PO TID 06/05/24 12/09/24 levetiracetam 500 mg tablet 500 mg PO BID 06/05/24 12/09/24 mirtazapine 30 mg tablet 30 mg PO .bedtime 06/05/24 12/09/24 multivitamin 1 tab PO DAILY 06/05/24 12/09/24 opatyblcqywa-rtdyglhy-jffp 1 tab PO DAILY 06/05/24 12/09/24 fumarate 18 mg-folic acid 400 mcg tablet (One-A-Day Women's Complete) nicotine (polacrilex) 4 mg gum 4 mg buccal Q1H 06/05/24 12/09/24 prazosin 2 mg capsule 2 mg PO .bedtime 06/05/24 12/09/24 tizanidine 4 mg tablet 4 mg PO DAILY 06/05/24 12/09/24 trazodone 150 mg tablet 150 mg PO .bedtime 06/05/24 12/09/24 trazodone 50 mg tablet 50 mg PO .Q 24 hrs 06/05/24 12/09/24 baclofen 10 mg tablet 10 mg PO TID 06/06/24 12/09/24 omeprazole 40 mg capsule,delayed 40 mg PO DAILY 06/06/24 12/09/24 release Previous Rx's Medication Instructions Recorded nebulizer and compressor #1 ea 07/29/20 Allergies Allergy/AdvReac Type Severity Reaction Status Date / Time lamotrigine (From Lamictal) Allergy Severe Hives Unverified 06/05/24 19:48 erythromycin base Allergy Unknown Other (See Verified 06/05/24 19:48 Comment) transparent dressing Allergy Unknown Other (See Verified 06/05/24 19:48 Comment) adhesives Allergy Mild Hives Uncoded 06/05/24 19:48 General Stated Complaint: [facility] PAYTON: 3 Course Vital Signs Vital signs: Vital Signs Temperature 37.3 C 12/09/24 11:45 Pulse 124 H 12/09/24 11:45 Respiratory Rate 20 12/09/24 11:45 Blood Pressure 112/71 12/09/24 11:45 Pulse Oximetry 92 12/09/24 11:45 Temperature 37.3 C 12/09/24 11:50 Temperature Source Tympanic 12/09/24 11:50 Pulse 124 H 12/09/24 11:50 Respiratory Rate 20 12/09/24 11:50 Blood Pressure 112/71 12/09/24 11:50 Blood Pressure Position Sitting 12/09/24 11:50 Pulse Oximetry 92 12/09/24 11:50 Oxygen Delivery Method Room Air 12/09/24 11:50 Oxygen Flow Rate 0 12/09/24 11:50 Pain Level 5 12/09/24 11:50 Procedure Abscess Drainage Date of Procedure: 12/09/24 Time of Procedure: 14:21 Provider that performed the procedure: Joseph Segura Patient Consented: Verbally Location of Exam: Axilla/right side Ultrasound: Not used Procedure Description Note: 11 blade scalpel approximately 5 cc., Purulent drainage. Anesthesia achieved with 5 cc of 2% lido with epinephrine. Medical Decision Making Quality:SDOH Health Related Social Needs: Health related social needs inadequate housing lonely/isolated PFSH All Active Problems (Updated 12/09/24 @ 18:28 by Chai Muhammad MD) Cellulitis of right axilla (Acute) Polysubstance abuse (Acute) Abnormal weight gain (Acute) Bilateral lower extremity edema (Acute) Gram-positive bacteremia (Acute) Migraine (Chronic) Cocaine abuse (Acute) Drug use disorder (Chronic) Cellulitis of right arm (Acute) Sepsis (Acute) Migraine with aura and without status migrainosus, not intractable (Acute) Migraine without aura, not intractable, without status migrainosus (Acute) Hidradenitis (Acute) Tachycardia (Acute) Hx of traumatic brain injury (Acute) Asthma (Chronic) Dyspepsia (Acute) Prediabetes (Acute) Chronic pain (Chronic) Obesity (Chronic) Hyperlipidemia (Chronic) Hx of opioid abuse (Acute) History of narcotic addiction (Acute) Bipolar 2 disorder (Acute) Tubal (Acute) was removed. S/P right knee arthroscopy (Acute) H/O removal of cyst (Acute) COPD (chronic obstructive pulmonary disease) (Acute) Medical History (Updated 12/09/24 @ 18:28 by Chai Muhammad MD) Seizure History of traumatic head injury Fatigue Opioid dependence History of prediabetes Mild persistent asthma Multiple joint pain Viral hepatitis C carrier Anxiety Pain, joint, knee, right Cramp in lower extremity associated with sleep Hx of eczema Cannabis abuse Nonulcer dyspepsia Pain of left lower extremity Pain in left arm Localized edema Pain in thoracic spine Insomnia due to other mental disorder Herpes virus disease Lymphedema History of psychiatric disorder Hx of chronic obstructive lung disease Diarrhea Neuropathy Aneurysmal bone cyst Hepatitis C Depression with anxiety Eczema Marijuana use Smoker Cervical dysplasia Suppurative hidradenitis Chronic pain of left lower extremity Back pain Insomnia ADHD Glaucoma Dysuria Nocturnal leg cramps Peripheral neuropathy Headache Seizure after head injury H/O traumatic brain injury Sinusitis Hyperkalemia Lower extremity surgery planned ADD (attention deficit disorder) Bipolar 1 disorder PTSD (post-traumatic stress disorder) Surgical History (Updated 06/10/24 @ 00:03 by CALEB WOMACK) H/O right knee surgery Family History Mother Heart disease cabg Hyperlipidemia Mental health problem Father Hyperlipidemia Sarcoidosis Brother Mental health problem Son Bipolar 1 disorder Daughter Depression Son Anger Hypertension Maternal Grandfather Diabetes Maternal Grandmother Breast cancer Other COPD (chronic obstructive pulmonary disease) Social History Smoking/Tobacco Use Status: Current every day Tobacco Type: cigarettes Smoking risk assessment performed?: Yes Alcohol Intake: never Drug use: Occasionally Substance use type: former substance user, marijuana and crack/cocaine Details: edibles Household members: family Housing: other Number of Children: 3 current occupation: disabled What is your relationship status?: Panel score (0-1 are the most socially isolated patients): 0 What type of physical activity do you participate in: none Seatbelt use: sometimes Do you feel safe at home: Yes Do you feel safe in your relationship?: Yes POCUS Exam (ED) Limited Cardiac Exam DATE OF EXAM: 12/09/24 TIME OF EXAM: 13:37 PROVIDER THAT PERFORMED THE STUDY: Joseph Segura IS DYLAN A REPEAT EXAM DURING THIS ENCOUNTER: no REASON FOR EXAM: Dyspnea VISUALIZED STRUCTURES: Four Chambers, Left ventricle and LVOT VIEW OBTAINED: Apical 4-Chamber and Parasternal long-axis PERTINENT FINDINGS/IMPRESSION: No pericardial effusion and No RV dilation DIFFERENTIAL DIAGNOSES: Aortic outflow track less than 4 cm, good squeeze. Difficult to assess RV versus LV. Could not tolerate subxiphoid view. No B-lines bilaterally. Exam complete Limited Soft Tissue Exam DATE OF EXAM: 12/09/24 TIME OF EXAM: 13:38 PROVIDER THAT PERFORMED THE STUDY: Joseph RICHARDSON A REPEAT EXAM DURING THIS ENCOUNTER: No LOCATION OF EXAM: Axilla/right side REASON FOR EXAM: Abscess Exam Complete DIFFERENTIAL DIAGNOSES: Anechoic area with swirl sign
[2024-12-09 13:26] LABS: BE (Venous) 4 mmol/L (-2-3); HCO3 (Venous) 29 mmol/L (23-28); O2 Sat (Venous) 84 %; TCO2 (Venous) 27 mmol/L (24-29); pCO2 (Venous) 50 mmHg (41-51); pO2 (Venous) 44 mmHg
[2024-12-09] MEDS: Lidocaine 2% Multi-Dose W/EPI 1/100,000 20 ML VIAL IJ (13:40)
[2024-12-09] MEDS: CEFEPIME 2 GM in Normal Saline 100 ML IVPB (13:41)
[2024-12-09 13:44] LABS: Abs Immature Grans 0.04 10^3/uL (0.0-0.06); HCT 37.8 % (36.0-46.0); HGB 12.3 g/dL (11.2-15.7); Immature Grans % 0.4 %; MCH 31.1 pg (27.0-33.0); MCHC 32.5 % (32.0-36.0); MCV 96 fL (80-95); MPV 9.0 fL (8.0-11.0); Platelet Count 385 10^3/uL (130-400); RBC 3.95 10^6/uL (3.93-5.22); RDW 13.8 % (11.7-14.6); RDW-SD 47.8 fL; WBC 9.15 10^3/uL (4.4-10.8)
[2024-12-09 13:53] LABS: COVID-19 PCR Negative (Negative); RSV PCR Negative (Negative)
--- NOTE | 2024-12-09 14:15 | DI.RAD_ITS ---
Exam(s) XR PORTABLE CHEST AP EXAM: XR PORTABLE CHEST AP CLINICAL HISTORY: Shortness of breath TECHNIQUE: 2D digital imaging was performed of the chest. One image was obtained. An AP view was obtained. COMPARISON: CR,XR XR CHEST 2V PA LATERAL from 06/05/2024 FINDINGS: MEDIASTINUM: Normal. HEART: Normal. PULMONARY VASCULATURE: Normal. LUNGS: There is linear atelectasis in the right mid lung. There are no focal consolidating infiltrates. PLEURAL SPACE: No pleural effusion or pneumothorax. BONE:Within normal limits for the patient's age. OTHER FINDINGS:Normal. IMPRESSION: No acute pulmonary findings. DATA REPOSITORY: RADIATION DOSE DELIVERED:
[2024-12-09] MEDS: VANCOMYCIN/WATER (PEG) 2 GM/400 ML BAG IVPB (14:31)
[2024-12-09] MEDS: Normal Saline 500 ML IV (14:43)
[2024-12-09 14:53] LABS: Troponin I 9 ng/L (<or=51)
[2024-12-09] MEDS: Doxycycline Hyclate 100 MG CAP PO (14:53)
[2024-12-09 14:54] LABS: ALT 29 U/L (14-59); AST 18 U/L (15-37); Albumin 3.1 g/dL (3.4-5.0); Alkaline Phosphatase 86 U/L (46-116); Anion Gap 7.9 mmol/L (3-11); BUN 8 mg/dL (7-18); Bilirubin, Total 0.2 mg/dL (0.2-1.0); CO2 29.1 mmol/L (21.0-32.0); Calcium 8.2 mg/dL (8.5-10.1); Chloride 102 mmol/L (98-107); Glucose 149 mg/dL (74-106); Magnesium 1.9 mg/dL (1.8-2.4); Potassium 3.5 mmol/L (3.5-5.1); Sodium 139 mmol/L (136-145); Total Protein 6.8 g/dL (6.4-8.2); Troponin I 8 ng/L (<or=51)
[2024-12-09] MEDS: predniSONE 20 MG TAB 60 MG PO (14:54)
--- NOTE | 2024-12-09 16:37 | W.PM.HP.N ---
Date of service: 12/09/24 Time of Service: 13:00 Assessment and Plan Assessment and plan (1) Bilateral lower extremity edema: Status: Acute Assessment and plan: BLE edema with mildly elevated BNP concerning for new heart failure Will admit for observation with planned echocardiogram in the morning Will defer diuresis at this time. VTE prophylaxis: enoxaparin weight-based (2) Cellulitis of right axilla: Status: Acute Assessment and plan: Purulent discharge drained from right axillary lesion Continue vancomycin pending blood cultures, narrow to PO if cultures negative Wound care. (3) COPD (chronic obstructive pulmonary disease): Status: Acute Assessment and plan: Possible exacerbation given weakness and malaise No sepsis, no O2 supplementation, no darkened sputum, will defer additional antibiotics/steroids PRN duonebs (4) Polysubstance abuse: Status: Acute Assessment and plan: UDS pending Continue suboxone History of Present Illness History of Present Illness Chief Complaint: leg swelling Narrative: Inna Doherty is a 39 year old woman presenting December 09 with pain due to swelling in her legs. She reports that she has been increasingly uncomfortable from the leg swelling and that she has felt generally bloated. She is worried that this is a recurrence of a bad infection she had in the past. She has a history of IVDU, reports no current use; she is concerned that the drugs could lay dormant and cause infection. She reports that she is always nervous in the ED and she can feel her heart pounding. She has not had a fever or headache. No sick contacts. No recent bug bites. No chest pain, no SOB, no abdominal pain, no N/V/D. In the ED she was tachycardic 124. Vitals otherwise unremarkable. EKG with sinus tachycardia, no evidence of occlusion. CXR unremarkable. CBC unremarkable. VBG without acidosis, no lactate elevation. Blood glucose elevated 149. BNP elevated 343. Negative troponins. She was started on broad spectrum antibiotics and steroids. No urine sample collected. Fluid collection in right axilla drained and sent for culture. PMH includes polysubstance abuse with remote IVDU, COPD, migraine, TBI. BMI > 50 PFSH All Active Problems (Updated 12/09/24 @ 18:28 by Chai Muhammad MD) Cellulitis of right axilla (Acute) Polysubstance abuse (Acute) Abnormal weight gain (Acute) Bilateral lower extremity edema (Acute) Gram-positive bacteremia (Acute) Migraine (Chronic) Cocaine abuse (Acute) Drug use disorder (Chronic) Cellulitis of right arm (Acute) Sepsis (Acute) Migraine with aura and without status migrainosus, not intractable (Acute) Migraine without aura, not intractable, without status migrainosus (Acute) Hidradenitis (Acute) Tachycardia (Acute) Hx of traumatic brain injury (Acute) Asthma (Chronic) Dyspepsia (Acute) Prediabetes (Acute) Chronic pain (Chronic) Obesity (Chronic) Hyperlipidemia (Chronic) Hx of opioid abuse (Acute) History of narcotic addiction (Acute) Bipolar 2 disorder (Acute) Tubal (Acute) was removed. S/P right knee arthroscopy (Acute) H/O removal of cyst (Acute) COPD (chronic obstructive pulmonary disease) (Acute) Medical History (Updated 12/09/24 @ 18:28 by Chai Muhammad MD) Seizure History of traumatic head injury Fatigue Opioid dependence History of prediabetes Mild persistent asthma Multiple joint pain Viral hepatitis C carrier Anxiety Pain, joint, knee, right Cramp in lower extremity associated with sleep Hx of eczema Cannabis abuse Nonulcer dyspepsia Pain of left lower extremity Pain in left arm Localized edema Pain in thoracic spine Insomnia due to other mental disorder Herpes virus disease Lymphedema History of psychiatric disorder Hx of chronic obstructive lung disease Diarrhea Neuropathy Aneurysmal bone cyst Hepatitis C Depression with anxiety Eczema Marijuana use Smoker Cervical dysplasia Suppurative hidradenitis Chronic pain of left lower extremity Back pain Insomnia ADHD Glaucoma Dysuria Nocturnal leg cramps Peripheral neuropathy Headache Seizure after head injury H/O traumatic brain injury Sinusitis Hyperkalemia Lower extremity surgery planned ADD (attention deficit disorder) Bipolar 1 disorder PTSD (post-traumatic stress disorder) Surgical History (Updated 06/10/24 @ 00:03 by CALEB WOMACK) H/O right knee surgery Family History Mother Heart disease cabg Hyperlipidemia Mental health problem Father Hyperlipidemia Sarcoidosis Brother Mental health problem Son Bipolar 1 disorder Daughter Depression Son Anger Hypertension Maternal Grandfather Diabetes Maternal Grandmother Breast cancer Other COPD (chronic obstructive pulmonary disease) Social History Smoking/Tobacco Use Status: Current every day Tobacco Type: cigarettes Smoking risk assessment performed?: Yes Alcohol Intake: never Drug use: Occasionally Substance use type: former substance user, marijuana and crack/cocaine Details: edibles Household members: family Housing: house Number of Children: 3 current occupation: disabled What is your relationship status?: Panel score (0-1 are the most socially isolated patients): 0 What type of physical activity do you participate in: none Seatbelt use: sometimes Do you feel safe at home: Yes Do you feel safe in your relationship?: Yes Meds Allergies and Home Medications Allergies Allergy/AdvReac Type Severity Reaction Status Date / Time lamotrigine (From Lamictal) Allergy Severe Hives Unverified 06/05/24 19:48 erythromycin base Allergy Unknown Other (See Verified 06/05/24 19:48 Comment) transparent dressing Allergy Unknown Other (See Verified 06/05/24 19:48 Comment) adhesives Allergy Mild Hives Uncoded 06/05/24 19:48 Home Medications Medication Instructions Recorded Confirmed Type albuterol sulfate 90 mcg/actuation 2 puff inhalation Q6H PRN PRN 12/05/18 12/09/24 History aerosol inhaler (Ventolin HFA) nebulizer and compressor #1 ea 07/29/20 12/09/24 Rx tiotropium bromide 18 mcg capsule 1 cap inhalation DAILY 04/18/23 12/09/24 History with inhalation device (Spiriva with HandiHaler) buprenorphine 8 mg-naloxone 2 mg 1 tab sublingual DAILY 06/05/24 12/09/24 History sublingual tablet cariprazine 3 mg capsule (Vraylar) 3 mg PO DAILY 06/05/24 12/09/24 History gabapentin 300 mg capsule 300 mg PO TID 06/05/24 12/09/24 History levetiracetam 500 mg tablet 500 mg PO BID 06/05/24 12/09/24 History mirtazapine 30 mg tablet 30 mg PO .bedtime 06/05/24 12/09/24 History multivitamin 1 tab PO DAILY 06/05/24 12/09/24 History navvutuqgosv-uduzptgo-iyzw 1 tab PO DAILY 06/05/24 12/09/24 History fumarate 18 mg-folic acid 400 mcg tablet (One-A-Day Women's Complete) nicotine (polacrilex) 4 mg gum 4 mg buccal Q1H 06/05/24 12/09/24 History prazosin 2 mg capsule 2 mg PO .bedtime 06/05/24 12/09/24 History tizanidine 4 mg tablet 4 mg PO DAILY 06/05/24 12/09/24 History trazodone 150 mg tablet 150 mg PO .bedtime 06/05/24 12/09/24 History trazodone 50 mg tablet 50 mg PO .Q 24 hrs 06/05/24 12/09/24 History baclofen 10 mg tablet 10 mg PO TID 06/06/24 12/09/24 History omeprazole 40 mg capsule,delayed 40 mg PO DAILY 06/06/24 12/09/24 History release Exam Narrative Exam Narrative: General: This is an uncomfortable-appearing, obese woman in no distress HEENT: Normocephalic, atraumatic CV: RRR. BLE 1+ pitting edema. Resp: CTAB Abd: soft, NTND MSK: voluntary motion x4 Skin: Right axillary incision site c/d/i. Left and right flanks with 1 cm erythematous lesions, painful, not fluctuant. Neuro: awake, alert, no focal deficits Results Labs 12/09/24 13:14 12/09/24 13:14 Labs: Laboratory Results - last 24 hr 12/09/24 12/09/24 12/09/24 12:58 13:14 14:30 WBC 9.15 RBC 3.95 Hgb 12.3 Hct 37.8 MCV 96 H MCH 31.1 MCHC 32.5 RDW 13.8 Plt Count 385 MPV 9.0 Immature Gran % 0.4 Neutrophils % 75.0 Lymphocytes % 17.3 Monocytes % 5.9 Eosinophils % 1.1 Basophils % 0.3 Nucleated RBC % 0.0 Absolute Neutrophils 6.86 H Absolute Lymphocytes 1.58 Absolute Monocytes 0.54 Absolute Eosinophils 0.10 Absolute Basophils 0.03 VBG pH 7.37 VBG pCO2 50 VBG pO2 44 VBG HCO3 29 H VBG Total CO2 27 VBG O2 Saturation 84 VBG Base Excess 4 H VBG Lactate 1.4 Sodium 139 Potassium 3.5 Chloride 102 Carbon Dioxide 29.1 Anion Gap 7.9 BUN 8 Creatinine 0.8 Est GFR (CKD-EPI 2020) 96.66 Glucose 149 H Calcium 8.2 L Magnesium 1.9 Total Bilirubin 0.2 AST 18 ALT 29 Alkaline Phosphatase 86 Troponin I 8 9 NT-Pro-B Natriuret Pep 343 H Total Protein 6.8 Albumin 3.1 L COVID-19 Source Nasopharynx SARS-CoV-2 (PCR) Negative Influenza Type A (PCR) Negative Influenza Type B (PCR) Negative RSV (PCR) Negative ABO/Rh O Positive Antibody Screen NEGATIVE Last Vital Signs Temp 37.3 C 12/09/24 11:50 Pulse 113 H 12/09/24 14:40 Resp 18 12/09/24 14:14 BP 114/56 L 12/09/24 13:58 Pulse Ox 95 12/09/24 15:17 Time Spent Time spent with Patient: 40-54 minutes Time was spent: preparing to see the patient(eg.review tests), obtaining and/or reviewing separately otained hiistory, ordering medications,tests, procedures, referring, communicating with other health healthcare architect, indepentently interpreting results, counseling the patient and care coordination
--- NOTE | 2024-12-09 17:55 | W.PC.ACHO ---
Registration Status: REG ER Primary Language: Preferred Language: ED Information & Data Chief Complaint GenMedical 12/09/24 12:05 Triage Note Pt reports swelling in her 12/09/24 11:45 feet and legs. Reports she had sepsis in the past and this is how it started. Wants to make sure that this isn't a reoccurrence. Denies fever. States she isn 't sure the source of the past infection, but used to use IV drugs and states they said It can lie dormant for a while. Started saturday. States progressively getting worse. Pitting edema. Medical / Surgical History (Last Updated 06/05/24 @ 23:54 by Hernandez Cary) Seizure History of traumatic head injury Fatigue Opioid dependence History of prediabetes Mild persistent asthma Multiple joint pain Viral hepatitis C carrier Anxiety Pain, joint, knee, right Cramp in lower extremity associated with sleep Hx of eczema Cannabis abuse Nonulcer dyspepsia Pain of left lower extremity Pain in left arm Localized edema Pain in thoracic spine Insomnia due to other mental disorder Herpes virus disease Lymphedema History of psychiatric disorder Hx of chronic obstructive lung disease Diarrhea Neuropathy Aneurysmal bone cyst Hepatitis C Depression with anxiety Eczema Marijuana use Smoker Cervical dysplasia Suppurative hidradenitis Chronic pain of left lower extremity Back pain Insomnia ADHD Glaucoma Dysuria Nocturnal leg cramps Peripheral neuropathy Headache Seizure after head injury H/O traumatic brain injury Sinusitis Hyperkalemia Lower extremity surgery planned ADD (attention deficit disorder) Bipolar 1 disorder PTSD (post-traumatic stress disorder) (Last Reviewed 06/05/24 @ 23:24 by Hernandez Cary) H/O right knee surgery Most Recent Vital Signs Temperature 37.3 C 12/09/24 11:50 Temperature Source Tympanic 12/09/24 11:50 Pulse 100 H 12/09/24 17:00 Respiratory Rate 18 12/09/24 14:14 Respiratory Effort Normal, Non-Labored 12/09/24 14:14 Respiratory Depth Normal 12/09/24 14:14 Respiratory Pattern Normal 12/09/24 14:14 Blood Pressure 132/40 L 12/09/24 16:35 Blood Pressure Mean 66 12/09/24 16:35 Blood Pressure Position Sitting 12/09/24 11:50 Pulse Oximetry 92 12/09/24 17:00 Oxygen Delivery Method Room Air 12/09/24 15:45 Oxygen Flow Rate 0 12/09/24 15:45 Pain Level 0 12/09/24 15:45 Comment Ambulatory trail completed. Patient ambulated around unit with portable P.O.@ Sats did not fall below 95% on RA during ambulation. made aware. 12/09/24 15:17 Allergies lamotrigine (From Lamictal) Allergy (Severe, Unverified 06/05/24 19:48) Hives erythromycin base Allergy (Unknown, Verified 06/05/24 19:48) Other (See Comment) Mother has severe reaction transparent dressing Allergy (Unknown, Verified 06/05/24 19:48) Other (See Comment) unknown adhesives Allergy (Mild, Uncoded 06/05/24 19:48) Hives IV IV Catheter Type [Left Peripheral IV Antecubital] IV Catheter Gauge [Left 18 Antecubital] Diet Orders Category Date Time Status Regular/Normal [DIET] Nutrition 12/09/24 Dinner Active Diagnostics 12/09/24 12/09/24 12/09/24 Range/Units 14:30 13:14 12:58 WBC 9.15 (4.4-10.8) 10^3/uL RBC 3.95 (3.93-5.22) 10^6/uL Hgb 12.3 (11.2-15.7) g/dL Hct 37.8 (36.0-46.0) % MCV 96 H (80-95) fL MCH 31.1 (27.0-33.0) pg MCHC 32.5 (32.0-36.0) % RDW 13.8 (11.7-14.6) % Plt Count 385 (130-400) 10^3/uL MPV 9.0 (8.0-11.0) fL Immature Gran % 0.4 % Neutrophils % 75.0 % Lymphocytes % 17.3 % Monocytes % 5.9 % Eosinophils % 1.1 % Basophils % 0.3 % Nucleated RBC % 0.0 (0.0-0.3) % Absolute Neutrophils 6.86 H (1.2-6.7) 10^3/uL Absolute Lymphocytes 1.58 (1.2-3.4) 10^3/uL Absolute Monocytes 0.54 (0.1-0.8) 10^3/uL Absolute Eosinophils 0.10 (0.0-0.7) 10^3/uL Absolute Basophils 0.03 (0.0-0.2) 10^3/uL VBG pH 7.37 (7.31-7.41) VBG pCO2 50 (41-51) mmHg VBG pO2 44 mmHg VBG HCO3 29 H (23-28) mmol/L VBG Total CO2 27 (24-29) mmol/L VBG O2 Saturation 84 % VBG Base Excess 4 H (-2-3) mmol/L VBG Lactate 1.4 (<or=2.0) mmol/L Sodium 139 (136-145) mmol/L Potassium 3.5 (3.5-5.1) mmol/L Chloride 102 (98-107) mmol/L Carbon Dioxide 29.1 (21.0-32.0) mmol/L Anion Gap 7.9 (3-11) mmol/L BUN 8 (7-18) mg/dL Creatinine 0.8 (0.55-1.02) mg/dL Est GFR (CKD-EPI 2020) 96.66 (mL/min/1.73m2) Glucose 149 H (74-106) mg/dL Calcium 8.2 L (8.5-10.1) mg/dL Magnesium 1.9 (1.8-2.4) mg/dL Total Bilirubin 0.2 (0.2-1.0) mg/dL AST 18 (15-37) U/L ALT 29 (14-59) U/L Alkaline Phosphatase 86 (46-116) U/L Troponin I 9 8 (<or=51) ng/L NT-Pro-B Natriuret Pep 343 H (<300) pg/mL Total Protein 6.8 (6.4-8.2) g/dL Albumin 3.1 L (3.4-5.0) g/dL COVID-19 Source Nasopharynx SARS-CoV-2 (PCR) Negative (Negative) Influenza Type A (PCR) Negative (Negative) Influenza Type B (PCR) Negative (Negative) RSV (PCR) Negative (Negative) ABO/Rh O Positive Antibody Screen NEGATIVE 12/09/24 13:43 Blood Culture - Pending Blood 12/09/24 13:14 Blood Culture - Pending Blood [id number] Documentation POC Urine Test Start: 12/09/24 12:03 Freq: .Urine Test Status: Active Protocol: Activity Type Activity Date Activity User E-sign Co-sign Detail Recorded Client Recorded Date Recorded By Document 12/09/24 12:19 N.[facility] [id number] 12/09/24 12:19 N.THE Intake and Output - 24 Hour Total 12/09/24 11:25 thru 12/09/24 16:25 Intake Total 500 Balance 500 Weight 138.4 kg Intake: IV 500 Falls Risk Assessment History of Falls No History 12/09/24 15:14 Contributing Factors No Factors 12/09/24 15:14 Ambulatory Aids Independent 12/09/24 15:14 Tubes/Lines None 12/09/24 15:14 Gait Evaluation No gait disturbance 12/09/24 15:14 Cognition No cognitive impairment 12/09/24 15:14 Fall Total Score 0 12/09/24 15:14 Level of Risk Standard/Low Risk 12/09/24 15:14 Problems (Last Updated 06/05/24 @ 23:54 by Hernandez Cary) Abnormal weight gain (Acute) Bilateral lower extremity edema (Acute) Tachycardia (Acute) v v v v v v v v v Sending and/or Receiving Nurses: Please use comment section below to note any information pertinent to the patient hand-off not included above. Information / Comments: Report called at [phone]. Pt has US guided L upper forearm. Blood cultures pending. Cefapime & vanco given in ED. Abscess in right axillary which was lanced in ED. BLE edema seen in ED. Report received from: Marichuy Gibbons, ED RN
[2024-12-09] MEDS: Baclofen 10 MG TAB PO (20:54)
[2024-12-09] MEDS: traZODone 50 MG TAB 150 MG PO (20:54)
[2024-12-09] MEDS: Prazosin 2 MG CAP PO (20:55)
[2024-12-09] MEDS: Enoxaparin 60 MG/0.6 ML SYR SC (20:55)
[2024-12-09] MEDS: Gabapentin 300 MG CAP PO (20:55)
[2024-12-09] MEDS: traZODone 50 MG TAB PO (20:55)
[2024-12-09] MEDS: Mirtazapine 15 MG TAB 30 MG PO (20:55)
[2024-12-09] MEDS: VANCOMYCIN/WATER (PEG) 1.5 GM/300 ML BAG IVPB (21:07)
[2024-12-09 21:38] LABS: Cannabinoids THC Negative (Negative)
[2024-12-09] MEDS: Nicotine 4 MG GUM CH (22:47)
[2024-12-09 23:11] LABS: HCG Qual (Urine) Negative
[2024-12-10 03:05] VITALS: BP 108/55; PULSE 97; RESP 17; TEMP 36.4; O2SAT 94
[2024-12-10] MEDS: VANCOMYCIN/WATER (PEG) 1.5 GM/300 ML BAG IVPB ×2 (05:43→11:50)
[2024-12-10] MEDS: Nicotine 4 MG GUM CH ×4 (05:51→13:10)
[2024-12-10 06:58] LABS: Abs Immature Grans 0.04 10^3/uL (0.0-0.06); HCT 36.7 % (36.0-46.0); HGB 12.0 g/dL (11.2-15.7); Immature Grans % 0.4 %; MCH 31.5 pg (27.0-33.0); MCHC 32.7 % (32.0-36.0); MCV 96 fL (80-95); MPV 9.3 fL (8.0-11.0); Platelet Count 331 10^3/uL (130-400); RBC 3.81 10^6/uL (3.93-5.22); RDW 14.0 % (11.7-14.6); RDW-SD 49.0 fL; WBC 10.49 10^3/uL (4.4-10.8)
[2024-12-10 07:04] LABS: ALT 25 U/L (14-59); AST 13 U/L (15-37); Albumin 2.9 g/dL (3.4-5.0); Alkaline Phosphatase 74 U/L (46-116); Anion Gap 9.2 mmol/L (3-11); BUN 8 mg/dL (7-18); Bilirubin, Total 0.2 mg/dL (0.2-1.0); CO2 26.8 mmol/L (21.0-32.0); Calcium 8.2 mg/dL (8.5-10.1); Chloride 103 mmol/L (98-107); Glucose 155 mg/dL (74-106); Magnesium 1.9 mg/dL (1.8-2.4); Potassium 3.7 mmol/L (3.5-5.1); Sodium 139 mmol/L (136-145); Total Protein 6.5 g/dL (6.4-8.2)
--- NOTE | 2024-12-10 08:00 | DI.US_ITS ---
APPROVED REPORT EXAM: Comprehensive 2D, Doppler, and color-flow Echocardiogram Patient Location: In-Patient Room/Bed: 206 Advertising Solicitor: Leticia Humphrey RDCS (AE) Indications: Query new heart failure, COPD, IVDU,Tachycardia Other Information Study Quality: Fair. Technically limited study due to body habitus. Conclusion Normal left ventricular wall thickness and chamber size. Ejection fraction is 60%. Wall motion is normal Normal right ventricular size and function Both atria are normal in size There is no structural or hemodynamically significant valvular disease Wall motion Left Ventricle The left ventricle is normal size. The overall left ventricular systolic function appears normal. There is normal left ventricular wall thickness. Regional wall motion is not well visualized but grossly normal. There is no ventricular septal defect visualized. LVEF is 60%. Right Ventricle Right ventricle is grossly normal in size. Right ventricular systolic function is grossly normal. Atria The left atrium size is normal. The right atrium size is normal. The interatrial septum is intact with no evidence for an atrial septal defect. Aortic Valve The aortic valve is normal in structure. Aortic valve is trileaflet. There is no aortic valvular stenosis. No aortic regurgitation is present. Mitral Valve The mitral valve is normal in structure. No evidence of mitral valve stenosis. Trace mitral regurgitation. Tricuspid Valve The tricuspid valve is normal in structure. There is no tricuspid valve stenosis. Trace tricuspid regurgitation. Unable to assess PA pressure. Pulmonic Valve The pulmonary valve is normal in structure. There is no pulmonic valvular stenosis. There is no pulmonic valvular regurgitation. Great Vessels The aortic root is normal in size. The ascending aorta is normal in size. Aortic arch is not well visualized. IVC is normal in size and collapses >50% with inspiration. Pericardium There is no pericardial effusion. 2D Dimensions IVSD d PLAX 0.90 cm F: 0.6-1.0 Ao Root d 2.68 cm F: 2.7 - 3.3 LVPW d PLAX 0.90 cm F: 0.6 - 1.0 Ao Asc Diam d 2.69 cm F: 2.3 - 3.1 LVID d PLAX 5.10 cm F: 3.8 - 5.2 LVDs 3.50 cm F: 2.2 - 3.5 LV EF Teichholz 59.6 % FS 31.87 % LV EDV (Teich) 122.2 mL LV ESV (Teich) 49.3 mL M-Mode TAPSE 2.92 cm (M/F) >1.7 LA Volume LA Length A4C 5.7 cm LA Length A2C 5.1 cm LA Area A4C s 18.23 cm2 LA Area A2C s 18.31 cm2 LA Vol A4C A-L 49.91 mL LA Vol A2C A-L 56.14 mL LA Vol Biplane A-L 55.9 mL LA Vol/BSA A4C A-L LA Vol/BSA A2C A-L LA Vol/BSA BP A-L 23.9 mL/m2 LA Vol A4C MOD 46.2 mL LA Vol A2C MOD 53.9 mL LA Vol BP MOD 52.6 mL RA Volume RA Area A4C 14.0 cm2 RA ESV A4C (A-L) 34.4mL RA Vol/BSA A4C A-L RA Length A4C 4.8 cm RA ESV A4C (MOD) 32.4mL LV Diastology MV E' medial 0.104 (>0.07 m/s) MV E Vmax 1.29 (0.4-1.3 m/s) MV E/E' MED 12.36 (<14) MV A Vmax 0.90 (0.4-1.3 m/s) MV E' lateral 0.175 (>0.1 m/s) E/A Ratio 1.4 MV E/E' LAT 7.37 (<14) MV E' Average 0.140 m/s MV E/E'(average) 9.24 Aortic Valve AoV Vmax 1.85 m/s LVOT Vmax 1.22 m/s AoV Peak Grad 13.7 mmHg LVOT Peak Grad 6.0 mmHg AoV Area (Vmax) 2.08 cm2 LVOT VTI 0.279 m AoV VTI 0.386 m LVOT Mean Grad 3.2 mmHg AoV Mean Francis. 1.25 m/s LVOT SV 88.01 mL AoV Mean Grad 7.4 mmHg LVOT Diam s 2.00 cm AoV Area (VTI) 2.28 cm2 AV Regurg Peak Gr. 13.74 mmHg Velocity Ratio 0.66 Mitral Valve MV DT 240 (160-240 msec) MV Vmax TIPS 1.04 m/s MV Mean Grad 1.9 (<2mmHg) MV VTI 0.264 m Pulmonary Valve PV Vmax 1.06 (0.5-1.5 m/s) RVOT Vmax 0.74 m/s PV Peak Grad 4.5 mmHg RVOT Peak Gr. 2.2 mmHg PV Mean Francis 0.85 m/s RVOT VTI 0.158 m PV Mean Grad 3.0 mmHg RVOT Mean Gr. 1.3 mmHg Tricuspid Valve TV S' 0.15 m/s
--- NOTE | 2024-12-10 08:15 | PDOC.CMIN ---
Date of service: 12/10/24 Time of Service: 08:15 Care Management Initial Assmt Initial Assessment Reason for Hospitalization: Leg Edema, cellulites Functional Status/Living Situation Patient Presentation: Inna was awake and lying in bed when CM met with her and is accompanied by her Tom. Inna lives in [place] with her friend's Yanick and Bruna, Tom does not live in the home. She has 3 children that reside with her parents 10 minutes away, however she voices that contact is limited and her parents are not really supportive. Inna is disabled due to a seizure disorder, and is unable to drive. Per pt, Tom is super supportive and provides transportation as needed. Per pt, her PCP is in [place] however pt does not feel like she is a good fit for her and is planning to find out if there is another provider within the practice she can establish primary care. Inna denies any community concerns, but did accept a brochure on the [facility] after CM explained their role within the community. CM will follow. Town of Residence: [place] Resides with: Other (Friends) Natural Supports: Tom Roommates Erick Employment Status: Disabled Instrumental Activities of Daily Living (ADLs): Independent and Requires support with Transportation Medications Medication Management: No Issues/Barriers identified Physical Functioning/Mobility Assistive Device: None Advance Directives Advance Directives: Do you have an Advance Directive: AD On File at [facility]: N [id number], 14:05 Date Asked 06/05/24 06/05/24, 22:52 AD Date Reviewed COLST On File at [facility] COLST Date Scanned Code Status Resuscitation Status Full Code Portal Pt does not currently have a portal and education provided: Yes Insurance Coverage/Financial Issues Insurance: Medicare Part A & B - [id number] Medicaid of [place] - [id number] Care Team Visit Care Team Role Provider Type Bhavya Lobo Primary Care Provider NON-[facility] STAFF PHYSICIAN Joseph Segura MD Emergency Provider [facility] STAFF PHYSICIAN Chai Muhammad MD Admit Provider [facility] STAFF PHYSICIAN Attending Provider Discharge Potential Discharge Needs: PCP F/U Appt Anticipated Barriers to Discharge: None Identified Patient/Family Education Needs: Review discharge instructions, discuss Ask Me Three Transportation: Private vehicle Plan: Anticipate Inna will discharge home via private vehicle with once medically ready. Patient will follow up with community providers and continue per her discharge plan of care. No referrals for new home or community supports are anticipated at this time. CM will follow. Social Determinants of Health Screening Social Determinants of health last assessed in clinic: 12/10/24 Will the Patient Participate in the Screening?: Yes Do you worry about having a steady place to live?: no Problems where you live: no known problems In the past 12 months, have you had to go without electric, gas, oil or water in your home?: no 1. Within the past 12 months, we worried whether our food would run out before we got money to buy more.: Never true 2. Within the past 12 months, the food we bought just didn't last and we didn't have money to get more.: Never true Has lack of transportation kept you from medical appointments or from doing things needed for daily living?: no Has anyone in your life made you feel unsafe or unsupported?: no How hard is it for you to pay for the very basics like food, housing, medical care, and heating? Would you say it is:: Not hard at all Do you want help finding or keeping work or a job?: I do not need or want help If for any reason you need help with day-to-day activities such as bathing, preparing meals, shopping, managing finances, etc., do you get the help you need?: I don’t need any help How often do you feel lonely or isolated from those around you?: Never Do you speak a language other than Kosovan at home?: No Does the patient want assistance with any of the above?: No PFSH All Active Problems (Updated 12/09/24 @ 18:28 by Chai Muhammad MD) Cellulitis of right axilla (Acute) Polysubstance abuse (Acute) Abnormal weight gain (Acute) Bilateral lower extremity edema (Acute) Gram-positive bacteremia (Acute) Migraine (Chronic) Cocaine abuse (Acute) Drug use disorder (Chronic) Cellulitis of right arm (Acute) Sepsis (Acute) Migraine with aura and without status migrainosus, not intractable (Acute) Migraine without aura, not intractable, without status migrainosus (Acute) Hidradenitis (Acute) Tachycardia (Acute) Hx of traumatic brain injury (Acute) Asthma (Chronic) Dyspepsia (Acute) Prediabetes (Acute) Chronic pain (Chronic) Obesity (Chronic) Hyperlipidemia (Chronic) Hx of opioid abuse (Acute) History of narcotic addiction (Acute) Bipolar 2 disorder (Acute) Tubal (Acute) was removed. S/P right knee arthroscopy (Acute) H/O removal of cyst (Acute) COPD (chronic obstructive pulmonary disease) (Acute) Medical History (Updated 12/09/24 @ 18:28 by Chai Muhammad MD) Seizure History of traumatic head injury Fatigue Opioid dependence History of prediabetes Mild persistent asthma Multiple joint pain Viral hepatitis C carrier Anxiety Pain, joint, knee, right Cramp in lower extremity associated with sleep Hx of eczema Cannabis abuse Nonulcer dyspepsia Pain of left lower extremity Pain in left arm Localized edema Pain in thoracic spine Insomnia due to other mental disorder Herpes virus disease Lymphedema History of psychiatric disorder Hx of chronic obstructive lung disease Diarrhea Neuropathy Aneurysmal bone cyst Hepatitis C Depression with anxiety Eczema Marijuana use Smoker Cervical dysplasia Suppurative hidradenitis Chronic pain of left lower extremity Back pain Insomnia ADHD Glaucoma Dysuria Nocturnal leg cramps Peripheral neuropathy Headache Seizure after head injury H/O traumatic brain injury Sinusitis Hyperkalemia Lower extremity surgery planned ADD (attention deficit disorder) Bipolar 1 disorder PTSD (post-traumatic stress disorder) Surgical History (Updated 06/10/24 @ 00:03 by CALEB WOMACK) H/O right knee surgery Family History Mother Heart disease cabg Hyperlipidemia Mental health problem Father Hyperlipidemia Sarcoidosis Brother Mental health problem Son Bipolar 1 disorder Daughter Depression Son Anger Hypertension Maternal Grandfather Diabetes Maternal Grandmother Breast cancer Other COPD (chronic obstructive pulmonary disease) Social History Smoking/Tobacco Use Status: Current every day Tobacco Type: cigarettes Smoking risk assessment performed?: Yes Alcohol Intake: never Drug use: Occasionally Substance use type: former substance user, marijuana and crack/cocaine Details: edibles Household members: family Housing: other Number of Children: 3 current occupation: disabled What is your relationship status?: Panel score (0-1 are the most socially isolated patients): 0 What type of physical activity do you participate in: none Seatbelt use: sometimes Do you feel safe at home: Yes Do you feel safe in your relationship?: Yes
[2024-12-10 08:37] VITALS: BP 117/72; PULSE 88; RESP 18; TEMP 36.8; O2SAT 93
[2024-12-10] MEDS: Enoxaparin 60 MG/0.6 ML SYR SC (08:52)
[2024-12-10] MEDS: Gabapentin 300 MG CAP PO ×2 (08:53→13:10)
[2024-12-10] MEDS: Baclofen 10 MG TAB PO ×2 (08:53→13:10)
[2024-12-10] MEDS: tiZANidine 4 MG TABLET PO (08:53)
[2024-12-10] MEDS: Normal Saline Flush 10 ML SYR (09:44)
[2024-12-10 11:16] VITALS: BP 122/72; PULSE 98; RESP 18; TEMP 36.6; O2SAT 94
[2024-12-10 11:26] LABS: Vancomycin, Trough 18.5 ug/mL (10.0-20.0)
--- NOTE | 2024-12-10 13:53 | CHAPLAIN ---
I had a brief visit with Inna, explained my role and offered support. She had a visitor with and was pleasant and engaged in a short conversation. She was up walking around her room.
--- NOTE | 2024-12-10 14:09 | PHA.REVIEW2 ---
Pharmacy Admission Review Admission Clinical Review Admission Pharmacy Review: Cellulitis of right axilla (Acute) Polysubstance abuse (Acute) Abnormal weight gain (Acute) Bilateral lower extremity edema (Acute) Tachycardia (Acute) COPD (chronic obstructive pulmonary disease) (Acute) lamotrigine (From Lamictal) Allergy (Severe, Unverified 06/05/24 19:48) Hives erythromycin base Allergy (Unknown, Verified 06/05/24 19:48) Other (See Comment) transparent dressing Allergy (Unknown, Verified 06/05/24 19:48) Other (See Comment) adhesives Allergy (Mild, Uncoded 06/05/24 19:48) Hives Resuscitation Status Full Code Height 5 ft 4 in Weight 138.4 kg Pharmacy Admission Review Renal Dosing Renal Dosing: BUN 8 mg/dL (7-18) 12/10/24 06:07 Creatinine 0.8 mg/dL (0.55-1.02) 12/10/24 06:07 Medications needing adjustments: Reviewed (CrCl 132.69 mL/min) List of meds needing interventions: Current medications are okay Anticoagulation Anticoagulation: Hgb 12.0 g/dL (11.2-15.7) 12/10/24 06:07 Hct 36.7 % (36.0-46.0) 12/10/24 06:07 Plt Count 331 10^3/uL (130-400) 12/10/24 06:07 Creatinine 0.8 mg/dL (0.55-1.02) 12/10/24 06:07 DVT Prophylaxis: Intervened (changed from 40mg daily to 60mg q12h due to BMI > 50) Medications: Enoxaparin (60mg q12h) Relevant Labs Relevant Labs: Sodium 139 mmol/L (136-145) 12/10/24 06:07 Potassium 3.7 mmol/L (3.5-5.1) 12/10/24 06:07 Chloride 103 mmol/L (98-107) 12/10/24 06:07 Magnesium 1.9 mg/dL (1.8-2.4) 12/10/24 06:07 Electrolytes, C-Reactive P, ESR: Reviewed Cardiac Review Cardiac Review: Troponin I 9 ng/L (<or=51) 12/09/24 14:30 NT-Pro-B Natriuret Pep 343 pg/mL (<300) H 12/09/24 13:14 BP, HR, EF%: Reviewed (BP WNL, HR 98) QTc Review QTc: Reviewed (470 from 12/09/24) IV to PO Switch IV Medications: Reviewed (vancomycin) Home Meds Home Med List reviewed: Intervened Relevent Home Meds Not ordered & why?: Keppra, multivitamin and omeprazole on home med list but was not ordered. Reached out to provider who then put orders in. All home meds now ordered. Asked nurse to verify what dose of mirtazapine she takes at home. Has 30mg on home med list but most recently filled for 45mg daily. Per nurse patient confirms it is 45mg daily at bedtime. Updated home med list and order - provider aware of change Asked nurse to verify what dose of prazosin she takes at home. Has 2mg on home med list but most recently filled for 1mg daily. Per nurse patient reports taking 2mg daily. Changed order for Vraylar to patients own and told nurse this will need to be brought in from home if possible. Patient had it brought in, verified and labeled by pharmacy and sent to floor. Current Meds Current Medication Order Review: Intervened Comments: Nurse called this morning as patient dropped one of the buprenorphine tablets when going to take dose this morning. Nurse did have the tablet and wasted appropriately but asked that a now one order be put in so that patient could get the full 4 tablets for the dose (had only received 3 tabs). Put in now one order. Added IV admission order set Pharmacy Antibiotic Review Relevant Labs: WBC 10.49 10^3/uL (4.4-10.8) 12/10/24 06:07 Temperature 36.6 C Temperature 36.8 C Temperature 36.4 C Pharmacy Antibiotic Activity: C/S review and Reviewed, no change Comments: Patient is on vancomycin, day 2, for cellulitis. Level ordered this AM for 1100 (prior to 4th dose). Based on results dose stayed at 1500mg q8h with predicted trough of 13.6. Will repeat level if any significant changes in renal function or prolonged therapy is required. Blood cultures pending.
--- NOTE | 2024-12-10 14:55 | CMDISCH_ITS ---
Date of service: 12/10/24 Time of Service: 14:55 LACE Index Scoring Tool Questions: Length of Stay (in days): 1 Was the patient admitted via the E.D.?: Yes Comorbidities: Chronic Pulmonary Disease E.D. Visits: 2 Answers: Total Score: 8 Risk of Readmission: Low Risk Care Management Discharge Plan Reason for Hospitalization: Leg edema Discharge Plan: Inna is discharged home via private vehicle with her . She will follow up with her PCP/Community providers and continue per her discharge plan of care. No new services are indicated at this time of discharge. Patient/Family Education Needs: Review discharge instructions and plan to follow up after discharge. Discuss asl me three. SDOH Health Related Social Needs: Health related social needs inadequate housing lonely/ isolated
--- NOTE | 2024-12-10 15:01 | W.PM.DS.N ---
Date of service: 12/10/24 Time of Service: 15:01 DS: Diagnosis Discharge Diagnosis (1) Bilateral lower extremity edema: Status: Acute (2) Cellulitis of right axilla: Status: Acute (3) COPD (chronic obstructive pulmonary disease): Status: Acute (4) Polysubstance abuse: Status: Acute Discharge Plan Disposition Patient Disposition: Home Condition: Improving Discharge Details Reason For Visit: Leg Edema Admit Date/Time: 12/09/24 16:30 Admit Provider: Chai Muhammad Attending Provider: Chai Muhammad Primary Care Provider: Bhavya Diamond Hospital Course Hospital Course: Inna Doherty is a 39 year old woman with h/o OUD in remission on buprenorphine, BMI >50, BPAD, 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 She has a history of IVDU, but no recent use with UDS negative on admission. She was not given diuresis, but her swelling did improve some overnight. Echocardiogram showed normal LVEF and collapsing IVC, not suggesting fluid overload. She did not have chest pain or shortness of breath. Her renal function was normal and she only had 30 protein on urinalysis, not c/w nephrotic syndrome. Her liver function was normal other than a slightly low albumin of 3.1. We discussed the association between leg swelling and gabapentin. Her dosing was decreased from TID to just QHS at 300mg. She was also fitted with graduated compression stockings. Exercise and leg elevation at rest was discussed. If her leg ain continues, given her smoking, ABIs could be considered. The small abscess in the right axilla was lanced, but fluid was not sent for culture. She did not have fever or elevated WBC. She was treated with vancomycin IV. She was feeling well and continued to be non-toxic by 12/10 Blood cultures were pending at the time of discharge. She did get one dose of prednisone for COPD in the ED, but she was not wheezing or hypoxic on the floor, and this was not continued. She was given #20 furosemide 20mg daily oral as needed for swelling. Follow up 1 week with PCP Recommendations for Follow Up Recommended tests to be ordered by follow up provider: follow up urine protein/creatinine, BMP/Mg one week Home Meds and New Rx's Prescriptions: New doxycycline hyclate 100 mg tablet 100 mg PO BID 7 Days Qty: 14 0RF furosemide [Lasix] 20 mg tablet 20 mg PO DAILY MDD 20mg PRN (Reason: edema) Qty: 20 0RF Continued tiotropium bromide [Spiriva with HandiHaler] 18 mcg capsule, w/inhalation device 1 cap inhalation DAILY Rx Instructions: puncture 1 cap using device; one dose = 2 inhalations albuterol sulfate [Ventolin HFA] 90 mcg/actuation Hfa Aerosol Inhaler 2 puff INHALATION Q6H PRN PRN (DME) nebulizer and compressor Device See Rx Instructions .ROUTE .MEDSUPPLY Qty: 1 0RF Rx Instructions: As directed multivitamin Tablet 1 tab PO DAILY trazodone 50 mg tablet 50 mg PO .Q 24 hrs tizanidine 4 mg tablet 4 mg PO DAILY trazodone 150 mg tablet 150 mg PO .bedtime Vraylar 3 mg capsule 3 mg PO DAILY prazosin 2 mg capsule 2 mg PO .bedtime nicotine (polacrilex) 4 mg gum 4 mg buccal Q1H One-A-Day Women's Complete 18 mg iron- 400 mcg tablet 1 tab PO DAILY levetiracetam 500 mg tablet 500 mg PO BID buprenorphine-naloxone 8-2 mg tablet, sublingual 1 tab SUBLINGUAL DAILY Patient Comments: PLACE ONE TABLET UNDER THE TONGUE EVERY DAY baclofen 10 mg tablet 10 mg PO TID Patient Comments: TAKE ONE TABLET BY MOUTH THREE TIMES A DAY omeprazole 40 mg capsule,delayed release(DR/EC) 40 mg PO DAILY Patient Comments: TAKE ONE CAPSULE BY MOUTH EVERY DAY mirtazapine 45 mg tablet 45 mg PO HS Patient Comments: TAKE ONE TABLET BY MOUTH EVERY DAY IN THE EVENING FOR MOOD/SLEEP Changed gabapentin 300 mg capsule 300 mg PO HS Qty: 0 0RF Patient Comments: TAKE ONE CAPSULE BY MOUTH THREE TIMES A DAY Discharge Instructions Instructions: Swelling Additional Instructions: Your heart looked good, so I don't think this is the cause of your swelling. We are cutting back the gabapentin because it can cause leg swelling. Take this only once at night for now. Avoid taking regular NSAID medications such as ibuprofen and naproxen as these can also make the swelling worse. take a week of antibiotic doxycycline to clear up the infection in the arm pit area. Wash the area with warm soapy water daily when you change the dressing so it continues to drain as needed. Stand Alone Forms: Nursing Discharge Form Referrals: Bhavya Diamond [Primary Care Provider, Medicine] Referral Note: PCP will reach out for a follow up, if you do not hear from them, please call them. Activity:: Activity as Tolerated Equipment/Supplies:: No Equipment Needed Diet:: Carb Counting Discharge Orders Discharge Orders: Discharge Order (Routine); Ordered 12/10/24 Ordered By: Joseph Garner DS: Summary Time Spent with Patient providing and/or coordinating discharge services: Greater than 30 minutes Status at Discharge Functional status at discharge: independent ambulation Overall status at discharge: patient is progressing back to baseline Mental Status: mental status grossly normal Speech and Movement: speech and movement normal Mood: congruent mood Affect: normal affect Quality:SDOH Health Related Social Needs: Health related social needs inadequate housing lonely/isolated Exam Narrative Exam Narrative: General: This is an alert and oriented, comfortable-appearing, obese woman in no distress CV: RRR. No m/g/r. BLE 1+ pitting edema. Resp: CTAB Abd: soft, NTND MSK: voluntary motion x4. Legs NT to palpation. Skin: Right axillary incision site c/d/i, 2cm induration deep to incision but no fluctuance and minimal serosanguinous discharge. Psych Mental Status: mental status grossly normal Speech and Movement: speech and movement normal Mood: congruent mood Affect: normal affect DS: Data Vitals/I&O Vitals and I&O: Vital Signs Temperature 36.6 C 12/10/24 11:16 Temperature Source Tympanic 12/10/24 11:16 Pulse 98 H 12/10/24 11:16 Pulse Rhythm Regular 12/09/24 18:13 Respiratory Rate 18 12/10/24 11:16 Respiratory Effort Incrsd Work of Breathing 12/09/24 18:13 Respiratory Depth Normal 12/09/24 18:13 Respiratory Pattern Normal 12/09/24 14:14 Blood Pressure 122/72 12/10/24 11:16 Blood Pressure Mean 88 12/10/24 11:16 Blood Pressure Position Sitting 12/09/24 11:50 Pulse Oximetry 94 12/10/24 11:16 Oxygen Delivery Method Room Air 12/10/24 11:16 Oxygen Flow Rate 0 12/10/24 11:16 Pain Level 5 12/10/24 11:16 Comment Ambulatory trail completed. Patient ambulated around unit with portable P.O.@ Sats did not fall below 95% on RA during ambulation. made aware. 12/09/24 15:17 Intake & Output 12/09/24 12/10/24 12/10/24 23:59 11:59 23:59 Intake Total 3400 / 3400 1200 / 1500 300 / 1500 Output Total 200 / 200 300 / 300 Balance 3200 / 3200 900 / 1200 300 / 1200 Weight 138.4 kg 138.4 kg Intake: IV 1600 / 1600 900 / 1200 300 / 1200 Oral 1800 / 1800 300 / 300 Output: Urine 200 / 200 300 / 300 Other: Urine Color Yellow Yellow Urine Appearance Clear Clear Urine Odor None Normal Comment independent Data Completed and Pending Pending Labs at Discharge: 12/09/24 12/09/24 12/09/24 12:58 13:14 14:30 WBC 9.15 RBC 3.95 Hgb 12.3 Hct 37.8 MCV 96 H MCH 31.1 MCHC 32.5 RDW 13.8 Plt Count 385 MPV 9.0 Immature Gran % 0.4 Neutrophils % 75.0 Lymphocytes % 17.3 Monocytes % 5.9 Eosinophils % 1.1 Basophils % 0.3 Nucleated RBC % 0.0 Absolute Neutrophils 6.86 H Absolute Lymphocytes 1.58 Absolute Monocytes 0.54 Absolute Eosinophils 0.10 Absolute Basophils 0.03 VBG pH 7.37 VBG pCO2 50 VBG pO2 44 VBG HCO3 29 H VBG Total CO2 27 VBG O2 Saturation 84 VBG Base Excess 4 H VBG Lactate 1.4 Sodium 139 Potassium 3.5 Chloride 102 Carbon Dioxide 29.1 Anion Gap 7.9 BUN 8 Creatinine 0.8 Est GFR (CKD-EPI 2020) 96.66 Glucose 149 H Calcium 8.2 L Magnesium 1.9 Total Bilirubin 0.2 AST 18 ALT 29 Alkaline Phosphatase 86 Troponin I 8 9 NT-Pro-B Natriuret Pep 343 H Total Protein 6.8 Albumin 3.1 L Urine HCG, Qual Vancomycin Trough Urine Opiates Screen Urine Methadone Screen Ur Barbiturates Screen Ur Tricyclics Screen Ur Amphetamines Screen U Benzodiazepines Scrn Urine Cocaine Screen Ur THC Screen COVID-19 Source Nasopharynx SARS-CoV-2 (PCR) Negative Influenza Type A (PCR) Negative Influenza Type B (PCR) Negative RSV (PCR) Negative ABO/Rh O Positive Antibody Screen NEGATIVE 10/29/25 10/30/25 10/30/25 21:00 06:07 11:00 WBC 10.49 RBC 3.81 L Hgb 12.0 Hct 36.7 MCV 96 H MCH 31.5 MCHC 32.7 RDW 14.0 Plt Count 331 MPV 9.3 Immature Gran % 0.4 Neutrophils % 81.2 Lymphocytes % 14.1 Monocytes % 4.1 Eosinophils % 0.0 Basophils % 0.2 Nucleated RBC % 0.0 Absolute Neutrophils 8.52 H Absolute Lymphocytes 1.48 Absolute Monocytes 0.43 Absolute Eosinophils 0.00 Absolute Basophils 0.02 VBG pH VBG pCO2 VBG pO2 VBG HCO3 VBG Total CO2 VBG O2 Saturation VBG Base Excess VBG Lactate Sodium 139 Potassium 3.7 Chloride 103 Carbon Dioxide 26.8 Anion Gap 9.2 BUN 8 Creatinine 0.8 Est GFR (CKD-EPI 2020) 96.66 Glucose 155 H Calcium 8.2 L Magnesium 1.9 Total Bilirubin 0.2 AST 13 L ALT 25 Alkaline Phosphatase 74 Troponin I NT-Pro-B Natriuret Pep Total Protein 6.5 Albumin 2.9 L Urine HCG, Qual Negative Vancomycin Trough 18.5 Urine Opiates Screen Negative Urine Methadone Screen Negative Ur Barbiturates Screen Negative Ur Tricyclics Screen Negative Ur Amphetamines Screen Negative U Benzodiazepines Scrn Negative Urine Cocaine Screen Negative Ur THC Screen Negative COVID-19 Source SARS-CoV-2 (PCR) Influenza Type A (PCR) Influenza Type B (PCR) RSV (PCR) ABO/Rh Antibody Screen Preliminary micro results at discharge 12/09/24 13:43 Blood Blood Culture - Pending 12/09/24 13:14 Blood Blood Culture - Pending [facility] All Active Problems (Updated 12/09/24 @ 18:28 by Chai Muhammad MD) Cellulitis of right axilla (Acute) Polysubstance abuse (Acute) Abnormal weight gain (Acute) Bilateral lower extremity edema (Acute) Gram-positive bacteremia (Acute) Migraine (Chronic) Cocaine abuse (Acute) Drug use disorder (Chronic) Cellulitis of right arm (Acute) Sepsis (Acute) Migraine with aura and without status migrainosus, not intractable (Acute) Migraine without aura, not intractable, without status migrainosus (Acute) Hidradenitis (Acute) Tachycardia (Acute) Hx of traumatic brain injury (Acute) Asthma (Chronic) Tubal (Acute) was removed. S/P right knee arthroscopy (Acute) H/O removal of cyst (Acute) COPD (chronic obstructive pulmonary disease) (Acute) Hx of opioid abuse (Acute) Hyperlipidemia (Chronic) Obesity (Chronic) Chronic pain (Chronic) Prediabetes (Acute) Dyspepsia (Acute) Bipolar 2 disorder (Acute) History of narcotic addiction (Acute) Medical History (Updated 12/09/24 @ 18:28 by Chai Muhammad MD) Seizure History of traumatic head injury Fatigue Opioid dependence History of prediabetes Mild persistent asthma Multiple joint pain Viral hepatitis C carrier Anxiety Pain, joint, knee, right Cramp in lower extremity associated with sleep Hx of eczema Cannabis abuse Nonulcer dyspepsia Pain of left lower extremity Pain in left arm Localized edema Pain in thoracic spine Insomnia due to other mental disorder Herpes virus disease Lymphedema History of psychiatric disorder Hx of chronic obstructive lung disease Diarrhea Neuropathy Aneurysmal bone cyst Hepatitis C Depression with anxiety Eczema Marijuana use Smoker Cervical dysplasia Suppurative hidradenitis Chronic pain of left lower extremity Back pain Insomnia ADHD Glaucoma Dysuria Nocturnal leg cramps Peripheral neuropathy Headache Seizure after head injury H/O traumatic brain injury Sinusitis Hyperkalemia Lower extremity surgery planned ADD (attention deficit disorder) Bipolar 1 disorder PTSD (post-traumatic stress disorder) Surgical History (Updated 06/10/24 @ 00:03 by CALEB WOMACK) H/O right knee surgery Family History Mother Heart disease cabg Hyperlipidemia Mental health problem Father Hyperlipidemia Sarcoidosis Brother Mental health problem Son Bipolar 1 disorder Daughter Depression Son Anger Hypertension Maternal Grandfather Diabetes Maternal Grandmother Breast cancer Other COPD (chronic obstructive pulmonary disease) Social History Smoking/Tobacco Use Status: Current every day Tobacco Type: cigarettes Smoking risk assessment performed?: Yes Alcohol Intake: never Drug use: Occasionally Substance use type: former substance user, marijuana and crack/cocaine Details: edibles Household members: family Housing: other Number of Children: 3 current occupation: disabled What is your relationship status?: Panel score (0-1 are the most socially isolated patients): 0 What type of physical activity do you participate in: none Seatbelt use: sometimes Do you feel safe at home: Yes Do you feel safe in your relationship?: Yes Time Spent with Patient Time Spent with Patient: <45 minutes Time was spent: preparing to see the patient(eg.review tests), obtaining and/or reviewing separately otained hiistory, ordering medications,tests, procedures, referring, communicating with other health infant caregiver, indepentently interpreting results, counseling the patient and care coordination
== END 2024-12-10 15:04 | disposition home or self-care (01) ==
LOC: ER 15:51 → MS 17:58
PROVIDERS: Family Medicine; Admitting Provider Family Medicine; Emergency Provider Emergency Medicine; PCP Family Medicine; Responsible Provider Family Medicine; Visit Provider Family Medicine
DX: R60.0 Localized edema (principal); L03.111 Cellulitis of right axilla; J44.9 Chronic obstructive pulmonary disease, unspecified; F19.10 Other psychoactive substance abuse, uncomplicated; R53.1 Weakness; E66.9 Obesity, unspecified; Z68.43 Body mass index [BMI] 50.0-59.9, adult; F31.81 Bipolar II disorder; G43.909 Migraine, unspecified, not intractable, without status migrainosus; E78.5 Hyperlipidemia, unspecified; F14.10 Cocaine abuse, uncomplicated; R73.03 Prediabetes; G89.29 Other chronic pain; J45.30 Mild persistent asthma, uncomplicated; F12.90 Cannabis use, unspecified, uncomplicated; F17.210 Nicotine dependence, cigarettes, uncomplicated; F11.20 Opioid dependence, uncomplicated; G40.909 Epilepsy, unspecified, not intractable, without status epilepticus; Z87.820 Personal history of traumatic brain injury; I73.9 Peripheral vascular disease, unspecified; L02.411 Cutaneous abscess of right axilla
CPT/HCPCS: 00123; 10060; 36415; 76882; 80053; 80307; 81025; 82805; 86850; 86900; 86901; 87040; 87077; 87637; 93005; 93306; 93308; 96361; 96365; 96366; 96367; 99285; 71045; 80202; 83605; 83735; 83880; 84484; 85025; 93010; 99222; 99238; G0378; J0692; J1650; J2004; J3373; J3490; J7512